=== PATIENT | male | born 1950 | race Caucasian/White ===

== ENCOUNTER 2017-07-23 10:48 | Emergency (ER) | payer OTHER, MEDICARE ==
[~2017-07-23] VITALS: Ht 188 cm; Wt 107.0 kg
[~2017-07-23 10:48] MED LIST: ACETAMINOPHEN325 M1 PO; ASPIRIN EC81 MG PO; CHLORTHALIDONE25 MG PO; DICLOFENAC SOD100 GM TOP; IBUPROFEN800 MG PO; LISINOPRIL2.5 MG PO; LOVASTATIN20 MG PO; MELOXICAM7.5 MG PO; NORCO 5-325 TA1 EACH PO; OSTERA TABLET1 EACH PO; PANTOPRAZOLE SO40 MG PO; PEPCID20 MG PO; PREDNISONE20 MG PO; SIMVASTATIN20 MG PO; TRAMADOL HCL50 MG PO; ZESTRIL40 MG PO
== END 2017-07-23 11:33 | disposition home or self-care (01) ==
LOC: ED 10:48
DX: S61.412A Laceration without foreign body of left hand, initial encounter (principal); W26.0XXA Contact with knife, initial encounter

== ENCOUNTER 2017-10-21 16:14 | Emergency (ER) | payer MEDICARE, OTHER ==
[~2017-10-21] VITALS: Ht 188 cm; Wt 113.4 kg
[2017-10-21] MEDS ORDERED: MOTION SICKNESS25 M1 PO (22:00)
[2017-10-21] MEDS ORDERED: ONDANSETRON ODT4 MG SL (22:00)
--- NOTE | 2017-10-22 13:22 | EKG ---
[facility] [address] [facility] [place], [place] [address] Signed Normal sinus rhythm Left axis deviation Abnormal ECG No previous ECGs available Confirmed by VIRGIL GARCIA MD ([id number]) on 10/22/2017 1:21:56 PM Electronically Signed By: VIRGIL GARCIA MD 10/22/17 1322 PATIENT NAME: SHAUNA SCHUMACHER Electrocardiogram DATE OF : 50 PHYSICIAN: VIRGIL GARCIA MD REPORT #: [id number] REPORT IS CONFIDENTIAL AND NOT TO BE RELEASED WITHOUT AUTHORIZATION
== END 2017-10-21 22:38 | disposition home or self-care (01) ==
LOC: ED 16:14
DX: R42 Dizziness and giddiness (principal); I65.23 Occlusion and stenosis of bilateral carotid arteries; R11.0 Nausea; Z87.891 Personal history of nicotine dependence; Z79.82 Long term (current) use of aspirin; Z79.899 Other long term (current) drug therapy
CPT/HCPCS: 70450; 71046; 80053; 84484; 85025; 93005; 93010; 99284

== ENCOUNTER 2020-01-04 06:49 | Emergency (ER) | payer MEDICARE, OTHER ==
[~2020-01-04] VITALS: Ht 188 cm; Wt 111.1 kg
--- OUTSIDE RECORDS SUMMARY | ~2020-01-04 | XMS | Encounter Summary ---
Demographics + + + | Address | [address] | | | [place] [address] | + + + | Home Phone | | + + + | Preferred Language | Unknown | + + + | Marital Status | Single | + + + | Hindu Affiliation | Unknown | + + + | Race | Unknown | + + + | Ethnic Group | Unknown | + + + Author + + + | Author | [facility] | | | and Jose Aana | + + + | Organization | [facility] | | | and Jose Aana | + + + | Address | Unknown | + + + | Phone | Unavailable | + + + Support + + +---------+ + | Name | Relationship | Address | Phone | + + +---------+ + | Per Patient None | ECON | Unknown | | + + +---------+ + Care Team Providers + +------+ + | Care Ammonia Nitrate Operator Name | Role | Phone | + +------+ + | Paul Mobley | PCP | | + +------+ + Reason for Referral Diagnostic/Screening (Routine) +--------+--------+ + + + + | Status | Reason | Specialty | Diagnoses / | Referred By | Referred To | | | | | Procedures | Contact | Contact | +--------+--------+ + + + + | Closed | | Radiology | Diagnoses | Ivone Soares, | | | | | | Carotid | DNP [address] | | | | | | stenosis, | G[facility] | | | | | | bilateral | [address] [address] | | | | | | Procedures | [place] | | | | | | VAS Carotid | [address] | | | | | | Duplex | Phone: | | | | | | Bilateral | [phone] | | | | | | | Fax: | | | | | | | [phone] | | +--------+--------+ + + + + Encounter Details +--------+ + + + + | Date | Type | Department | Care Team | Description | +--------+ + + + + | 04/09/ | Hospital | [facility] | | Carotid stenosis, | | 2019 | Encounter | VASCULAR SURGERY | | bilateral | | | | ULTRASOUND [address] | | | | | | [address] | | | | | | [place] | | | | | | [address] | | | | | | [phone] | | | +--------+ + + + + Social History + +-------+ +--------+------+ | Tobacco Use | Types | Packs/Day | Years | Date | | | | | Used | | + +-------+ +--------+------+ | Former Smoker | | | | | + +-------+ +--------+------+ + +---+---+---+ | Smokeless Tobacco: | | | | | Never Used | | | | + +---+---+---+ + + +---------+ + | Alcohol Use | Drinks/Week | oz/Week | Comments | + + +---------+ + | Yes | | | Alcoholic | | | | | Drinks/day: every 2 | | | | | weeks | + + +---------+ + + + + | Sex Assigned at | Date Recorded | | | | + + + | Not on file | | + + + + + + + | Job Start Date | Occupation | Industry | + + + + | Not on file | Not on file | Not on file | + + + + + + + + | Travel History | Travel Start | Travel End | + + + + + + | No recent travel history available. | + + documented as of this encounter Medications at Time of Discharge + + + +---------+ + + | Medication | Sig | Dispensed | Refills | Start | End Date | | | | | | Date | | + + + +---------+ + + | aspirin 81 mg EC | Take 81 mg by mouth | | 0 | | | | tablet | Daily. | | | | | + + + +---------+ + + | carvedilol (COREG) | Take 0.5 tablets by | 60 | 0 | 03/22/20 | | | 3.125 mg tablet | mouth 2 times daily | tablet | | 19 | | | | (with breakfast & | | | | | | | dinner). Hold for | | | | | | | Systolic blood | | | | | | | pressure less than | | | | | | | 160mmHG or heart | | | | | | | rate less than 70 | | | | | + + + +---------+ + + | chlorthalidone 25 | Take 0.5 tablets by | 30 | 11 | 03/22/20 | | | mg tablet | mouth Daily. | tablet | | 19 | | + + + +---------+ + + | cholecalciferol | Take 1,000 Units by | | 0 | | | | (VITAMIN D-3) 1,000 | mouth Daily. | | | | | | units tablet | | | | | | + + + +---------+ + + | clopidogrel | Take 1 tablet by | 90 | 3 | 03/23/20 | | | (PLAVIX) 75 mg | mouth Daily. | tablet | | 19 | | | tablet | | | | | | + + + +---------+ + + | clotrimazole | 1 applicator | | 0 | | | | (GYNE-LOTRIMIN) 1% | nightly. Patient | | | | | | vaginal cream | uses for his toes | | | | | | | and feet. | | | | | + + + +---------+ + + | diclofenac | Apply 4 g topically | | 0 | | | | (VOLTAREN) 1% GEL | 4 times daily. | | | | | + + + +---------+ + + | | Take 1 tablet by | 30 | 0 | 08/18/20 | | | HYDROcodone-acetamin | mouth every 6 hours | tablet | | 19 | | | ophen (NORCO) 5-325 | as needed for Pain | | | | | | mg per tablet | for up to 30 doses. | | | | | + + + +---------+ + + | lidocaine | Place 1 patch onto | | 0 | | | | (LIDODERM) 5% patch | the skin as needed. | | | | | | | Apply for 12 hours, | | | | | | | then remove for 12 | | | | | | | hours. | | | | | + + + +---------+ + + | lisinopril | Take 40 mg by mouth | | 0 | | | | (PRINIVIL,ZESTRIL) | Daily. | | | | | | 40 MG tablet | | | | | | + + + +---------+ + + | meloxicam (MOBIC) | Take 7.5 mg by mouth | | 0 | | | | 7.5 mg tablet | Daily. | | | | | + + + +---------+ + + | miconazole | Apply 1 Application | | 0 | | | | (MICATIN) 2% powder | topically 2 times | | | | | | | daily. | | | | | + + + +---------+ + + | ondansetron | As needed for | 2 | 0 | /12/20 | | | (ZOFRAN) 4 mg tablet | nausea; stop prep; | tablet | | 18 | | | | take 1 tablet; wait | | | | | | | 30 min then resume | | | | | | | prep; repeat 1x prn | | | | | + + + +---------+ + + | pantoprazole | Take 40 mg by mouth | | 0 | | | | (PROTONIX) 40 mg | every morning | | | | | | tablet | (before breakfast). | | | | | + + + +---------+ + + | simvastatin | Take 20 mg by mouth | | 0 | | | | (ZOCOR) 20 mg tablet | nightly. | | | | | + + + +---------+ + + | traMADol (ULTRAM) | Take 50 mg by mouth | | 0 | | | | 50 mg tablet | every 6 hours as | | | | | | | needed. | | | | | + + + +---------+ + + documented as of this encounter Plan of Treatment Not on filedocumented as of this encounter Procedures + +--------+ + + + | Procedure Name | Priori | Date/Time | Associated Diagnosis | Comments | | | ty | | | | + +--------+ + + + | VAS CAROTID DUPLEX | Routin | 04/09/2019 | Carotid stenosis, | Results for this | | BILATERAL | e | 2:56 PM | bilateral | procedure are in the | | | | PDT | | results section. | + +--------+ + + + documented in this encounter Results VAS Carotid Duplex Bilateral (04/09/2019 2:56 PM PDT) + + | Specimen | + + | | + + + + + | Narrative | Performed At | + + + | CAROTID DUPLEX ULTRASOUND CLINICAL INFORMATION: Carotid | [facility] | | endarterectomy and stent 03/20/2019 COMPARISON: None | | | PROCEDURE: Evaluation of the extracranial carotid and vertebral | | | arteries with production of real-time images integrating B-mode | | | two-dimensional vascular structure, Doppler spectral analysis and | | | color-flow Doppler imaging. FINDINGS: Peak systolic and | | | diastolic velocities measured in the common and internal carotid | | | arteries. All velocities recorded in cm/sec: Anterior Circulation: | | | Right CCA: 60/19 ICA: 62/15 ECA: 385/93 ICA/CCA: 1.0 Left | | | CCA: 81/21 ICA: 128 /46 ECA: 177/19 ICA/CCA: 1.6 Posterior | | | Circulation: Right: Vertebral: 35/7 Antegrade Left: | | | Vertebral: 35/11 Antegrade Calixto scale images: Intimal thickening | | | in right CCA. Eccentric noncalcified atherosclerotic plaques in | | | right carotid sinus and proximal ICA. Widely patent right carotid | | | endarterectomy and ICA stent.. Intimal thickening with eccentric | | | calcified and noncalcified atherosclerotic plaques in left CCA, | | | carotid sinus and ICA. IMPRESSION: *Grade 2 (less than 50%) ICA | | | stenosis bilaterally. *Widely patent right carotid endarterectomy and | | | ICA stent. *Probable hemodynamically significant stenosis in right | | | proximal ECA. *Antegrade flow in both vertebral arteries. | | | Internal Carotid Artery Diagnostic Grades Grade 1: Stenosis = | | | 01-50% / PSV <125 cm/sec / EDV (cm/s)<40 cm/sec (mild plaque) Grade | | | 2: Stenosis = 01-50% / PSV <125 cm/sec / EDV (cm/s)<40 cm/sec | | | (moderate plaque) Grade 3: Stenosis = 50-69% / PSV >125 cm/sec / EDV | | | (cm/s)>40 cm/sec Grade 4: Stenosis = 70-95% / PSV >230 cm/sec / EDV | | | (cm/s)>100 cm/sec Grade 5: Stenosis = 90-95% / PSV <125 cm/sec / EDV | | | (cm/s)<40 cm/sec Grade 6: Stenosis Occluded Society of | | | Radiologists in Ultrasound (SRU) criteria applied for internal | | | carotid stenosis determination. Signed by: Alvaro Licea, | | | Jasmynder Sign Date/Time: 04/09/2019 3:24 PM | | + + + + + | Procedure Note | + + | Pastor, Rad Results In - 04/09/2019 3:28 PM PDT | | CAROTID DUPLEX ULTRASOUND | | | | CLINICAL INFORMATION: | | Carotid endarterectomy and stent 03/20/2019 | | | | COMPARISON: | | None | | | | PROCEDURE: | | Evaluation of the extracranial carotid and vertebral arteries with | | production of real-time images integrating B-mode two-dimensional | | vascular structure, Doppler spectral analysis and color-flow Doppler | | imaging. | | | | FINDINGS: | | Peak systolic and diastolic velocities measured in the common and | | internal carotid arteries. All velocities recorded in cm/sec: | | | | Anterior Circulation: | | | | Right | | CCA: 60/19 | | ICA: 62/15 | | ECA: 385/93 | | ICA/CCA: 1.0 | | | | Left | | CCA: 81/21 | | ICA: 128 /46 | | ECA: 177/19 | | ICA/CCA: 1.6 | | | | Posterior Circulation: | | | | Right: | | Vertebral: 35/7 Antegrade | | | | Left: | | Vertebral: 35/11 Antegrade | | | | Calixto scale images: Intimal thickening in right CCA. Eccentric | | noncalcified atherosclerotic plaques in right carotid sinus and | | proximal ICA. Widely patent right carotid endarterectomy and ICA | | stent.. | | | | Intimal thickening with eccentric calcified and noncalcified | | atherosclerotic plaques in left CCA, carotid sinus and ICA. | | | | IMPRESSION: | | *Grade 2 (less than 50%) ICA stenosis bilaterally. | | *Widely patent right carotid endarterectomy and ICA stent. | | *Probable hemodynamically significant stenosis in right proximal ECA. | | *Antegrade flow in both vertebral arteries. | | | | | | Internal Carotid Artery Diagnostic Grades | | | | Grade 1: Stenosis = 01-50% / PSV <125 cm/sec / EDV (cm/s)<40 cm/sec | | (mild plaque) | | Grade 2: Stenosis = 01-50% / PSV <125 cm/sec / EDV (cm/s)<40 cm/sec | | (moderate plaque) | | Grade 3: Stenosis = 50-69% / PSV >125 cm/sec / EDV (cm/s)>40 cm/sec | | Grade 4: Stenosis = 70-95% / PSV >230 cm/sec / EDV (cm/s)>100 cm/sec | | Grade 5: Stenosis = 90-95% / PSV <125 cm/sec / EDV (cm/s)<40 cm/sec | | Grade 6: Stenosis Occluded | | | | Society of Radiologists in Ultrasound (SRU) criteria applied for | | internal carotid stenosis determination. | | | | | | | | Signed by: Alvaro Lieca, Amelie | | Sign Date/Time: 04/09/2019 3:24 PM | + + + +---------+ + + | Performing | Address | City/State/Zipcode | Phone Number | | Organization | | | | + +---------+ + + | [facility] | | | | + +---------+ + + documented in this encounter Visit Diagnoses + + | Diagnosis | + + | Carotid stenosis, bilateral Occlusion and stenosis of multiple and bilateral | | precerebral arteries without mention of cerebral infarction | + + documented in this encounter"
--- OUTSIDE RECORDS SUMMARY | ~2020-01-04 | XMS | Encounter Summary ---
Demographics + + + | Address | [address] | | | [place] [address] | + + + | Home Phone | | + + + | Preferred Language | Unknown | + + + | Marital Status | Single | + + + | Mosque Affiliation | Unknown | + + + | Race | Unknown | + + + | Ethnic Group | Unknown | + + + Author + + + | Author | [facility] | | | and [place] A[place] | + + + | Organization | [facility] | | | and [place] Aana [...] Team Providers + +------+ + | Care Roller Inspector Name | Role | Phone | + +------+ + | Paul Mobley | PCP | | + +------+ + Reason for Visit + + + | Reason | Comments | + + + | Colon Cancer | | | Screening | | + + + Evaluate & Treat (Routine) +--------+--------+ + + + + | Status | Reason | Specialty | Diagnoses / | Referred By | Referred To | | | | | Procedures | Contact | Contact | +--------+--------+ + + + + | Closed | | Gastroenterol | Diagnoses | [place], | [facility] | | | | ogy | Encounter | Paul Bone, | Gastroenterol | | | | | for | [address] | [address] | | | | | screening | [place] | [address] | | | | | for | [address] [place] | [address] [place] | | | | | malignant | [place], [place] | [place], [place] | | | | | neoplasm of | [address] | [phone] | | | | | colon | Phone: | Phone: | | | | | Procedures | [phone] | [phone] | | | | | colon | Fax: | Fax: | | | | | consult | [phone] | [phone] | +--------+--------+ + + + + Encounter Details +--------+---------+ + + + | Date | Type | Department | Care Team | Description | +--------+---------+ + + + | 05/15/ | Office | [facility] | Gavin Fields | Special screening | | 2018 | Visit | GASTROENTEROLOGY | MD Conr[address] | for malignant | | | | [address] | [address] [place] | neoplasms, colon | | | | [address] [place], [place] | [place] [address] | (Primary Dx); | | | | [address] | [phone] | Obstructive sleep | | | | [phone] | | apnea; Advanced age | +--------+---------+ + + + Social History + +-------+ +--------+------+ | Tobacco Use | Types | Packs/Day | Years | Date | | | | | Used | | + +-------+ +--------+------+ | Never Smoker | | | | | + +-------+ +--------+------+ + +---+---+---+ | Smokeless Tobacco: | | | | | Never Used | | | | + +---+---+---+ + + +---------+ + | Alcohol Use | Drinks/Week | oz/Week | Comments | + + +---------+ + | Yes | | | seldom | + + +---------+ + + + [...] + + documented as of this encounter Last Filed Vital Signs + + + + + | Vital Sign | Reading | Time Taken | Comments | + + + + + | Blood Pressure | 136/76 | 05/15/2018 2:04 PM | | | | | PDT | | + + + + + | Pulse | 87 | 05/15/2018 2:04 PM | | | | | PDT | | + + + + + | Temperature | 35.9 C (96.7 F) | 05/15/2018 2:04 PM | | | | | PDT | | + + + + + | Respiratory Rate | 12 | 05/15/2018 2:04 PM | | | | | PDT | | + + + + + | Oxygen Saturation | 95% | 05/15/2018 2:04 PM | | | | | PDT | | + + + + + | Inhaled Oxygen | - | - | | | Concentration | | | | + + + + + | Weight | 112.4 kg (247 lb | 05/15/2018 2:04 PM | | | | 12.8 oz) | PDT | | + + + + + | Height | 188 cm (6' 2") | 05/15/2018 2:04 PM | | | | | PDT | | + + + + + | Body Mass Index | 31.82 | 05/15/2018 2:04 PM | | | | | PDT | | + + + + + documented in this encounter Progress Notes Filomena Goodson RN - 05/15/2018 2:00 PM PDTScheduled pt for propofol colonoscopy (sc kay[facility]) on 06/04/[address] Fields following office visit; Medications, surg/med hx, a nd allergies were reviewed; gave instructions for bowel prep; rx to [facility] (pt preference [place] [facility]); info given to pt; completed case request order, notes to (JAXON - CPAP, page 10 [facility]). ANDOLarafael, Gavin Camp MD - 05/15/2018 2:00 PM PDTFormatting of this note might be differ ent from the original. Outpatient Gastroenterology Consult Note Date of Office Visit: 05/16/18 Referring Provider: JADEN Chisholm [facility] [place] [address] Providing Physician: Gavin Fields MD. Chief Complaint: "I need a colonoscopy" History of Present Illness Armando Dimas is a 68 y.o. male with a history of JAXON, HTN, HLD, who presents to discuss CRC screening. He denies any problems with his bowels. He denies any problems with GERD. He denies any FH of CRC. He reports that his last colonoscopy was 10 yrs ago and was normal. He reports that he has JAXON and wears a CPAP Endoscopic History Normal colonoscopy 10 yrs ago Review of Systems ROS A 12 point review of systems was conducted with the patient. Pertinent positives and negati ves listed per HPI Problem List Patient Active Problem List Diagnosis Arthralgia Arthropathy of shoulder region Cardiomegaly History of cholecystectomy Hyperlipidemia Benign essential hypertension Rotator cuff syndrome of right shoulder Past Medical History Past Medical History: Diagnosis Date Angle recession Arthritis of knee Benign hypertension Carpal tunnel syndrome Cataract Chronic pain bilateral knee pain Dilation of biliary tract Eczema Elbow pain Epigastric pain 04/18/2014 Epiretinal membrane Erectile disorder, generalized, mild FH: cholecystectomy Hepatitis C antibody test positive History of TIA (transient ischemic attack) Hyperlipidemia Hypertension Obesity Refractive amblyopia Sleep apnea Tinea cruris Vitamin D deficiency Past Surgical History Past Surgical History: Procedure Laterality Date CHOLECYSTECTOMY COLONOSCOPY normal UPPER GASTROINTESTINAL ENDOSCOPY 04/19/2014 Family History Family History Problem Relation Age of Onset Liver cancer Father Heart disease Sister Prostate cancer Brother Thyroid disease Sister Thyroid disease Sister Social History Social History Social History Marital status: Single Spouse name: N/A Number of children: N/A Years of education: N/A Social History Main Topics Smoking status: Never Smoker Smokeless tobacco: Never Used Alcohol use Yes Comment: seldom Drug use: No Sexual activity: No Other Topics Concern None Social History Narrative None Allergies Allergies Allergen Reactions Atenolol Not Noted Intolerance No active intolerances/contraindications Medications Current Outpatient Prescriptions on File Prior to Visit Medication Sig Dispense Refill aspirin 81 mg EC tablet Take 81 mg by mouth Daily. chlorthalidone 25 mg tablet Take 25 mg by mouth Daily. cholecalciferol (VITAMIN D-3) 1,000 units tablet Take 1,000 Units by mouth Daily. clotrimazole (GYNE-LOTRIMIN) 1% vaginal cream 1 applicator nightly. Patient uses for hi s toes and feet. diclofenac (VOLTAREN) 1% GEL Apply 4 g topically 4 times daily. lidocaine (LIDODERM) 5% patch Place 1 patch onto the skin Daily. Apply for 12 hours, th en remove for 12 hours. lisinopril (PRINIVIL,ZESTRIL) 40 MG tablet Take 40 mg by mouth Daily. meloxicam (MOBIC) 7.5 mg tablet Take 7.5 mg by mouth Daily. miconazole (MICATIN) 2% powder Apply 1 Application topically 2 times daily. pantoprazole (PROTONIX) 40 mg tablet Take 40 mg by mouth every morning (before breakfas t). simvastatin (ZOCOR) 20 mg tablet Take 20 mg by mouth nightly. traMADol (ULTRAM) 50 mg tablet Take 50 mg by mouth every 6 hours as needed. No current facility-administered medications on file prior to visit. Physical Exam Vitals:BP 136/76 | Pulse 87 | Temp 35.9 C (96.7 F) (Temporal) | Resp 12 | Ht 1.88 m (6' 2") | Wt 112.4 kg (247 lb 12.8 oz) | SpO2 95% | BMI 31.82 kg/m General: This is a well-developed,well-nurished male in no apparent distress, alert and lanie ented x 3. Head: Reveals normocephalic, atraumatic Eyes: Sclera anicteric, normal conjunctiva Mouth: Oropharynx is clear without obstruction. No oral lesion. Lungs: Clear to auscultation without rales or wheezes. Cardiac: Reveals regular rate and rhythm with normal S1 and S2 and no murmurs, rubs or gall ops. Abdomen: Soft and nontender without masses or organmegaly. No guarding or rebound pain. No rmoactive bowel sounds. Extremities: Without cyanosis, clubbing or edema. Neuro: Awake, alert, oriented x3. Skin: Warm and dry, no erythematous rash. Labs Lab Results Component Value Date WBC <1 02/06/2018 No results found for: HGB Chemistry No results found for: NA, K, CL, CO2, GLU, BUN, CREATININE, ANIONGAP, OSMOLALITY No results found for: CALCIUM, ALKPHOS, AST, ALT, TOTALPROTEIN, ALBUMIN, GFRAA, BILITOT Imaging No relevant imaging Assessment and Plan This is a 68 year old man, who is due for CRC screening. He is avg risk for CRC. He has no problems with his bowel habits. He has JAXON, on CPAP. At this time I recommend that colonoscopy be performed for further evaluation. Indications risks benefits and possible complications were discussed with the patient who wishes to pro ceed with colonoscopy at this time. He is a candidate for MAC sedation given his history of JAXON on CPAP. ICD-10-CM ICD-9-CM 1. Special screening for malignant neoplasms, colon Z12.11 V76.51 Case request: Colonoscopy ; N/A 2. Obstructive sleep apnea G47.33 327.23 Case request: Colonoscopy; N/A 3. Advanced age [id number] Case request: Colonoscopy; N/A Follow up: No Follow-up on file. CC: Paul Mobley, [address] [place] [address] [address] [place] [address] Portions of this chart may have been created with [employer] voice recognition software. Occasi onal wrong-word or sound-alike substitutions may have occurred due to the inherent lopez itations of voice recognition software. Please read the chart carefully and recognize, using context, where these substitutions have occurred documented in thi s encounter Plan of Treatment Not on filedocumented as of this encounter Visit Diagnoses + + | Diagnosis | + + | Special screening for malignant neoplasms, colon - Primary | + + | Obstructive sleep apnea Obstructive sleep apnea (adult) (pediatric) | + + | Advanced age Reserved for inherently not codable concepts WITHOUT codable children | + + documented in this encounter
--- OUTSIDE RECORDS SUMMARY | ~2020-01-04 | XMS | Encounter Summary ---
Demographics + + + | Address | [address] | | | [place] [address] | + + + | Home Phone | | + + + | Preferred Language | Unknown | + + + | Marital Status | Single | + + + | Yazidism Affiliation | Unknown | + + + | Race | Unknown | + + + | Ethnic Group | Unknown | + + + Author + + + | Author | [facility] | | | and [place] | + + + | Organization | [facility] | | | and [place] [...] Team Providers + +------+ + | Care Auto Inspection Specialist Name | Role | Phone | + +------+ + | Paul Mobley | PCP | | + +------+ + Encounter Details +--------+ + + + + | Date | Type | Department | Care Team | Description | +--------+ + + + + | 05/15/ | Abstract | [facility] | Gavin Fields | | | 2017 | | GASTROENTEROLOGY | MD [address] | | | | | [address] | [address] | | | | | [address] | [place] [address] | | | | | [address] | [phone] | | | | | [phone] | | | +--------+ + + + [...] filedocumented as of this encounter Visit Diagnoses Not on filedocumented in this encounter"
--- OUTSIDE RECORDS SUMMARY | ~2020-01-04 | XMS | Encounter Summary ---
Demographics + + + | Address | [address] | | | [place] [address] | + + + | Home Phone | | + + + | Preferred Language | Unknown | + + + | Marital Status | Single | + + + | Alevism Affiliation | Unknown | + + + | Race | Unknown | + + + | Ethnic Group | Unknown | + + + Author + + + | Author | [facility] | | | and Jose Aana | + + + | Organization | [facility] | | | and Jose [...] Team Providers + +------+ + | Care Road Equipment Operator Name | Role | Phone | + +------+ + | Paul Mobley | PCP | | + +------+ + Reason for Visit Auth/Cert +--------+--------+ + + + + | Status | Reason | Specialty | Diagnoses / | Referred By | Referred To | | | | | Procedures | Contact | Contact | +--------+--------+ + + + + | | | | Diagnoses | | | | | | | Special | | | | | | | screening | | | | | | | for | | | | | | | malignant | | | | | | | neoplasms, | | | | | | | colon | | | | | | | (Z12.11), | | | | | | | Obstructive | | | | | | | sleep apnea | | | | | | | (G47.33), | | | | | | | Advanced age | | | | | | | (R54) | | | | | | | Procedures | | | | | | | DC | | | | | | | COLONOSCOPY | | | | | | | FLX DX | | | | | | | W/COLLJ SPEC | | | | | | | WHEN PFRMD | | | | | | | DC | | | | | | | COLONOSCOPY | | | | | | | W/BIOPSY | | | | | | | SINGLE/MULTI | | | | | | | PLE DC | | | | | | | COLSC FLX | | | | | | | W/RMVL OF | | | | | | | TUMOR POLYP | | | | | | | LESION SNARE | | | | | | | TQ DC | | | | | | | ANESTHESIA | | | | | | | LOWER INTST | | | | | | | ENDOSCOPIC | | | | | | | PX SCR COLSC | | | | | | | | | | | | | | COLONOSCOPY | | | +--------+--------+ + + + + Encounter Details +--------+ + + + + | Date | Type | Department | Care Team | Description | +--------+ + + + + | 06/04/ | Anesthesia | [facility] | Bill Harris MD | | | 2018 | Event | [facility] | [address] | | | | | [address] | [place], [place] | | | | | [place], [place] | [address] | | | | | [address] | | | | | | [phone] | Ehsan Clarke | | | | | | MD Fer [address] | | | | | | [place], [place] | | | | | | [address] | | | | | | [phone] | | | | | | | | +--------+ + + + + Anesthesia Record + + + + + | Procedure Name | Responsible | Anesthesia Start | Anesthesia Stop Time | | | Anesthesiologist | Time | | + + + + + | COLONOSCOPY (N/A | Bill Harris MD | 06/[birth year]/1847 | 10/31/18 0914 | | Rectum) | | | | + + + + + +----+---+ + + | Da | T | Event | Comment | | te | i | | | | | m | | | | | e | | | +----+---+ + + | 10 | 0 | | | | /3 | 8 | | | | 1/ | 4 | | | | 20 | 3 | | | | 18 | | | | +----+---+ + + | | 0 | An Checkout | Pre-use anesthesia machine/equipment checkout. | | | 8 | | | | | 4 | | | | | 7 | | | +----+---+ + + | | 0 | An Start | | | | 8 | Data | | | | 4 | | | | | 7 | | | +----+---+ + + | | 0 | An Start | Reassessment prior to anesthesia induction/procedure. | | | 8 | | | | | 4 | | | | | 7 | | | +----+---+ + + | | 0 | AN | Per surgeon request | | | 8 | Antibiotic | | | | 4 | declined | | | | 7 | | | +----+---+ + + | | 0 | Breathing | | | | 8 | Spontaneous | | | | 4 | ly | | | | 7 | | | +----+---+ + + | | 0 | First | | | | 8 | Inc/Proc St | | | | 5 | | | | | 1 | | | +----+---+ + + | | 0 | an stop | | | | 9 | data | | | | 0 | | | | | 9 | | | +----+---+ + + | | 0 | An Stop | Patient handed off to recovery nurse. | | | 1 | | | | | 4 | | | +----+---+ + + +------+ | Meds | +------+ + + + | Name | Total | + + + | propofol (DIPRIVAN) injection | 100 mg | | (bolus) (20 mL) | | + + + | propofol | 123.12 mg | + + + | lactated ringers (LR) infusion | 300 mL | + + + + + | No agents on file. | + + + + | No blood administrations on file. | + + +--------+ + + + | Type | Details | Placement | Removal | +--------+ + + + | Periph | 06/04/18; 08; Right; Forearm; | 06/04/18 08 by | 06/04/18944 by | | mónica | [id number] catheter system; | Celine Stokes, | Rita Ulloa, | | IV | 20 gauge; 1; right forearm; | RN | RN | | | distraction; no longer indicated, | | | | | removed per policy/procedure, | | | | | catheter/device intact; 06/04/18; | | | | | 0945 | | | +--------+ + + + documented in this encounter Social History + +-------+ +--------+------+ | Tobacco [...] Visit Diagnoses Not on filedocumented in this encounter Administered Medications + +---------+ +------+------+------+ | Medication Order | MAR | Action | Dose | Rate | Site | | | Action | Date | | | | + +---------+ +------+------+------+ | lactated ringers (LR) infusion | New Bag | 06/04/20 | | | | | at 100 mL/hr, Intravenous, | | 18 8:46 | | | | | CONTINUOUS, Starting 06/04/18 | | AM PDT | | | | | at 0800, Pre-op | | | | | | + +---------+ +------+------+------+ +---------+ +--------+-------+---+ | New Bag | 06/04/20 | 1,000 | 100 | | | | 18 8:02 | mLs | mL/hr | | | | AM PDT | | | | +---------+ +--------+-------+---+ +---+---+ | | | +---+---+ + + + + +-------+---+ | propofol (DIPRIVAN) injection | Rate/Dos | 06/04/20 | 40 | 25.9 | | | Intravenous, CONTINUOUS PRN, | e Change | 18 8:56 | mcg/kg/m | mL/hr | | | Starting 06/04/18 at 0851, | | AM PDT | in | | | | Anesthesia Intra-op | | | | | | + + + + +-------+---+ +---------+ + +-------+---+ | New Bag | 06/04/20 | 140 | 90.7 | | | | 18 8:51 | mcg/kg/m | mL/hr | | | | AM PDT | in | | | +---------+ + +-------+---+ +---+---+ | | | +---+---+ + +-------+ +--------+---+---+ | propofol (DIPRIVAN) injection | Given | 06/04/20 | 100 mg | | | | Intravenous, PRN, Starting Wed | | 18 8:51 | | | | | 06/04/18 at 0851, Anesthesia | | AM PDT | | | | | Intra-op | | | | | | + +-------+ +--------+---+---+ +---+---+ | | | +---+---+ documented in this encounter"
--- OUTSIDE RECORDS SUMMARY | ~2020-01-04 | XMS | Encounter Summary ---
Demographics + + + | Address | [address] | | | [place] [address] | + + + | Home Phone | | + + + | Preferred Language | Unknown | + + + | Marital Status | Single | + + + | Adventism Affiliation | Unknown | + + + | Race | Unknown | + + + | Ethnic Group | Unknown | + + + Author + + + | Author | [facility] | | | and Jose Aana | + + + | Organization | [facility] | | | and Jose [...] Team Providers + +------+ + | Care Medical Insurance Coding Specialist Name | Role | Phone | [...] | | | | | for | ENVIRONMENTAL SERVICES FLOOR TECH [address] | [address] | | | | | screening | [address] | | | | | for | [address] [place] | [address] [place] | | | | | malignant | [place], [place] | [place], [place] | | | | | neoplasm of | [address] | [address] | | | | | colon | Phone: | Phone: | | | | | Procedures | [phone] | [phone] | | | | | colon | Fax: | Fax: | | | | | consult | [phone] | [phone] | +--------+--------+ + + + + Encounter [...] neoplasms, colon | | | | [address], [place] | [place] [address] | (Primary Dx); | | | | [address] | [phone] | Obstructive sleep | | | | [phone] | | apnea; Advanced age | +--------+---------+ [...] rx to [facility] (pt preference [place] [facility]); info given to pt; completed case request order, notes to ([facility] - CPAP, page 10 [facility] referral). ANDOLarafael, Gavin Camp MD - 05/15/2018 2:00 PM PDTFormatting of this note might be differ ent from the original. Outpatient Gastroenterology Consult Note Date of Office Visit: 05/16/18 Referring Provider: [facility] [address] Providing Physician: Gavin Fields MD. Chief Complaint: [...] No Follow-up on file. CC: Paul Mobley, ENVIRONMENTAL SERVICES FLOOR TECH [address] [address] JADEN [address] [address] Portions of this chart may have been created with [employer] voice recognition software. Occasi onal wrong-word or [...]
--- OUTSIDE RECORDS SUMMARY | ~2020-01-04 | XMS | Encounter Summary ---
Demographics + + + | Address | [address] | | | [place] [address] | + + + | Home Phone | | + + + | Preferred Language | Unknown | + + + | Marital Status | Single | + + + | Mu-Ism Affiliation | Unknown | + + + | Race | Unknown | + + + | Ethnic Group | Unknown | + + + Author + + + | Author | [facility] | | | and Jose Aana | + + + | Organization | [facility] | | | and Jose Aana [...] Team Providers + +------+ + | Care Glue Bone Drier Name | Role | Phone | + +------+ + | Paul Mobley | PCP | | + +------+ + Encounter Details +--------+ + + + + | Date | Type | Department | Care Team | Description | +--------+ + + + + | 03/05/ | Hospital | [facility] | Conversion | | | 2019 | Encounter | [facility] | Transaction, | | | | | CLINIC [address] | Provider Unknown | | | | | [place], [place] | [phone] | | | | | [address] | | | | | | [phone] | Costa Velasco MD [address] | | | | | | [address] | | | | | | [facility] [place] | | | | | | [address] | | | | | | [phone] | | | | | | | [...] needed for | 2 | 0 | 10/12/20 | | | (ZOFRAN) 4 mg tablet [...] + + | chlorthalidone 25 | Take 25 mg by mouth | | 0 | | | | mg tablet | Daily. | | | | 9 | + + + +---------+ + + documented as of this encounter Plan of Treatment Not on filedocumented as of this encounter Procedures + +--------+ + + + | Procedure Name | Priori | Date/Time | Associated Diagnosis | Comments | | | ty | | | | + +--------+ + + + | TYPE AND SCREEN | Routin | 03/05/2019 | | Results for this | | | e | 12:08 PM | | procedure are in the | | | | PDT | | results section. | + +--------+ + + + | EXTERNAL LAB: CBC | Routin | 03/05/2019 | | Results for this | | | e | 12:07 PM | | procedure are in the | | | | PDT | | results section. | + +--------+ + + + | COMPREHENSIVE | Routin | 03/05/2019 | | Results for this | | METABOLIC PANEL | e | 12:07 PM | | procedure are in the | | | | PDT | | results section. | + +--------+ + + + | ECG 12 LEAD | Routin | 03/05/2019 | | Results for this | | | e | 11:43 AM | | procedure are in the | | | | PDT | | results section. | + +--------+ + + + documented in this encounter Results Type and Screen (03/05/2019 12:08 PM PDT) + + + + + + | Component | Value | Ref Range | Performed | Pathologist | | | | | At | Signature | + + + + + + | ABO Rh | O POSITIVE | | EXTERNAL | | | | | | LAB | | + + + + + + | Antibody | NEGATIVETesting | | EXTERNAL | | | Screen | performed at [facility];[address] | | LAB | | | | [address];[place], [place] | | | | | | [address] | | | | + + + + + + + + | Specimen | + + | Blood specimen | | (specimen) | + + + +---------+ + + | Performing | Address | City/State/Zipcode | Phone Number | | Organization | | | | + +---------+ + + | EXTERNAL LAB | | | | + +---------+ + + External Lab: CBC (03/05/2019 12:07 PM PDT) + + + + + + | Component | Value | Ref Range | Performed | Pathologist | | | | | At | Signature | + + + + + + | WBC | 8.78 | 3.80 - 11.00 | EXTERNAL | | | | | K/uL | LAB | | + + + + + + | Red Blood | 4.27 | 4.20 - 5.70 | EXTERNAL | | | Cells | | M/uL | LAB | | | Counted | | | | | + + + + + + | Hemoglobin | 14.0 | 13.2 - 17.0 | EXTERNAL | | | | | g/dL | LAB | | + + + + + + | Hematocrit, | 41.0 | 39.0 - 50.0 % | EXTERNAL | | | POC | | | LAB | | + + + + + + | MCV | 95.9 | 80.0 - 100.0 fl | EXTERNAL | | | | | | LAB | | + + + + + + | MCH | 32.8 | 27.0 - 34.0 pg | EXTERNAL | | | | | | LAB | | + + + + + + | MCHC | 34.2 | 32.0 - 35.5 | EXTERNAL | | | | | g/dL | LAB | | + + + + + + | RDW-CV | 46.4 | 37 - 53 fl | EXTERNAL | | | | | | LAB | | + + + + + + | Platelet | 245 | 150 - 400 K/uL | EXTERNAL | | | Count | | | LAB | | | Plasma | | | | | + + + + + + | MPV | 8.7 | fl | EXTERNAL | | | | | | LAB | | + + + + + + | Differentia | AUTOMATED | | EXTERNAL | | | l Type | | | LAB | | + + + + + + | % Segmented | 44.21 | % | EXTERNAL | | | | | | LAB | | | Neutrophils | | | | | + + + + + + | % | 44.06 | % | EXTERNAL | | | Lymphocytes | | | LAB | | + + + + + + | % Monocytes | 9.04 | % | EXTERNAL | | | | | | LAB | | + + + + + + | % | 2.00 | % | EXTERNAL | | | Eosinophils | | | LAB | | + + + + + + | % Basophils | 0.69 | % | EXTERNAL | | | | | | LAB | | + + + + + + | Absolute | 3.88 | 1.90 - 7.40 | EXTERNAL | | | Segmented | | K/uL | LAB | | | Neutrophils | | | | | + + + + + + | Absolute | 3.87 | 1.00 - 3.90 | EXTERNAL | | | Lymphocytes | | K/uL | LAB | | + + + + + + | Absolute | 0.79 | 0.00 - 0.80 | EXTERNAL | | | Monocytes | | K/uL | LAB | | + + + + + + | Absolute | 0.18 | 0.00 - 0.50 | EXTERNAL | | | Eosinophils | | K/uL | LAB | | + + + + + + | Absolute | 0.06Comment: Testing | 0.00 - 0.10 | EXTERNAL | | | Basophils | performed at [facility], [address] | [address] | LAB | | | | [address], | | | | | | [place] [address] | | | | + + + + + + + + | Specimen | + + | Blood specimen | | (specimen) | + + + +---------+ + + | Performing | Address | City/State/Zipcode | Phone Number | | Organization | | | | + +---------+ + + | EXTERNAL LAB | | | | + +---------+ + + Comprehensive Metabolic Panel (03/05/2019 12:07 PM PDT) + + + + + + | Component | Value | Ref Range | Performed | Pathologist | | | | | At | Signature | + + + + + + | Na | 139 | 135 - 145 | EXTERNAL | | | | | mmol/L | LAB | | + + + + + + | K | 3.9 | 3.5 - 4.9 | EXTERNAL | | | | | mmol/L | LAB | | + + + + + + | Cl | 107 | 99 - 109 mmol/L | EXTERNAL | | | | | | LAB | | + + + + + + | CO2 | 25 | 23 - 32 mmol/L | EXTERNAL | | | | | | LAB | | + + + + + + | Anion Gap | 11 | 5 - 20 mmol/L | EXTERNAL | | | | | | LAB | | + + + + + + | Glucose, | 85 | 65 - 99 mg/dL | EXTERNAL | | | Fasting | | | LAB | | + + + + + + | BUN | 18 | 8 - 25 mg/dL | EXTERNAL | | | | | | LAB | | + + + + + + | Creatinine | 0.9 | 0.70 - 1.30 | EXTERNAL | | | | | mg/dL | LAB | | + + + + + + | BUN/Creatin | 20 | | EXTERNAL | | | ine Ratio | | | LAB | | + + + + + + | Calcium | 8.6 | 8.5 - 10.5 | EXTERNAL | | | | | mg/dL | LAB | | + + + + + + | Protein, | 6.9 | 6.3 - 8.2 g/dL | EXTERNAL | | | Total | | | LAB | | + + + + + + | Albumin | 3.6 | 3.3 - 4.8 g/dL | EXTERNAL | | | | | | LAB | | + + + + + + | Globulin | 3.3 | 1.3 - 4.9 g/dL | EXTERNAL | | | | | | LAB | | + + + + + + | A/G Ratio | 1.1 | 1.0 - 2.4 | EXTERNAL | | | | | | LAB | | + + + + + + | Bilirubin | 0.4 | 0.1 - 1.5 mg/dL | EXTERNAL | | | Total | | | LAB | | + + + + + + | ALP, | 80 | 35 - 115 U/L | EXTERNAL | | | External | | | LAB | | + + + + + + | AST | 19 | 10 - 45 U/L | EXTERNAL | | | | | | LAB | | + + + + + + | ALT | 24 | 10 - 65 U/L | EXTERNAL | | | | | | LAB | | + + + + + + | Estimated | >60Comment: GFR <60: | mL/min/1.73m2 | EXTERNAL | | | GFR | CHRONIC KIDNEY DISEASE, | | LAB | | | | IF FOUND OVER A 3 MONTH | | | | | | PERIOD.GFR <15: KIDNEY | | | | | | FAILURE.FOR | | | | | | AMERICANS, MULTIPLY THE | | | | | | CALCULATED GFR BY | | | | | | 1.210.This eGFR is | | | | | | calculated using the | | | | | | MDRD IDMS traceable | | | | | | equation.Testing | | | | | | performed at [facility], [address] | | | | | | [facility], | | | | | | [place] [address] | | | | + + + + + + + + | Specimen | + + | Blood specimen | | (specimen) | + + + +---------+ + + | Performing | Address | City/State/Zipcode | Phone Number | | Organization | | | | + +---------+ + + | EXTERNAL LAB | | | | + +---------+ + + ECG 12 lead (03/05/2019 11:43 AM PDT) + + + + + + | Component | Value | Ref Range | Performed | Pathologist | | | | | At | Signature | + + + + + + | DIAGNOSIS: | Sinus | | EXTERNAL | | | | bradycardiaOtherwise | | LAB | | | | normal ECGNo previous | | | | | | ECGs availableConfirmed | | | | | | by MELVI MACIAS ([id number]) | | | | | | on 03/05/2019 1:32:54 PM | | | | + + + + + + + + | Specimen | + + | | + + + + + | Narrative | Performed At | + + + | Historically converted procedure from [facility] | EXTERNAL LAB | + + + + +---------+ + + | Performing | Address | City/State/Zipcode | Phone Number | | Organization | | | | + +---------+ + + | EXTERNAL LAB | | | | + +---------+ + + documented in this encounter Visit Diagnoses Not on filedocumented in this encounter"
--- OUTSIDE RECORDS SUMMARY | ~2020-01-04 | XMS | Clinical Summary ---
Demographics + + + | Address | [address] | | | [place] [address] | + + + | Home Phone | | + + + | Preferred Language | Unknown | + + + | Marital Status | Single | + + + | Lutheran Affiliation | Unknown | + + + | Race | Unknown | + + + | Ethnic Group | Unknown | + + + Author + + + | Author | [facility] ([facility] | | | 03-21-19) | + + + | Organization | [facility] (Historical as of | | | 03-21-19) | + + + | Address | Unknown | + + + | Phone | Unavailable | + + + Support +---------+ +---------+ + | Name | Relationship | Address | Phone | +---------+ +---------+ + | No,Name | ECON | Unknown | | +---------+ +---------+ + Care Team Providers + +------+ + | Care Wind Operations Supervisor Name | Role | Phone | + +------+ + | [facility] PP | | | [place] | | | + +------+ + Allergies + + + + + + | Active Allergy | Reactions | Severity | Noted | Comments | | | | | Date | | + + + + + + | Atenolol | Visual Disturbance | Medium | 03/05/20 | | | | | | 19 | | + + + + + + Current Medications + + +-------+---------+------+------+-------+ | Prescription | Sig. | Disp. | Refills | Star | End | Statu | | | | | | t | Date | s | | | | | | Date | | | + + +-------+---------+------+------+-------+ | aspirin EC 81 MG | Take 81 mg by mouth. | | | | | Activ | | EC tablet | | | | | | e | + + +-------+---------+------+------+-------+ | calcium-vitamin D | 600-400 MG-UNIT | | | 08/0 | | Activ | | (CALCITRATE) 600-400 | TABS, 1 by mouth | | | 4/20 | | e | | MG-UNIT per tablet | twice a day | | | 10 | | | + + +-------+---------+------+------+-------+ | chlorthalidone | Take 25 mg by mouth. | | | | | Activ | | (HYGROTEN) 25 MG | | | | | | e | | tablet | | | | | | | + + +-------+---------+------+------+-------+ | lidocaine | Place 1 patch onto | | | | | Activ | | (LIDODERM) 5 % | the skin. | | | | | e | + + +-------+---------+------+------+-------+ | meloxicam (MOBIC) | Take 7.5 mg by | | | | | Activ | | 7.5 MG tablet | mouth. | | | | | e | + + +-------+---------+------+------+-------+ | simvastatin | Take 20 mg by mouth. | | | | | Activ | | (ZOCOR) 20 MG tablet | | | | | | e | + + +-------+---------+------+------+-------+ | traMADol (ULTRAM) | | | | 07/2 | | Activ | | 50 MG tablet | | | | 5/20 | | e | | | | | | 19 | | | + + +-------+---------+------+------+-------+ | pantoprazole | Take 40 mg by mouth. | | | | | Activ | | (PROTONIX) 40 MG | | | | | | e | | tablet | | | | | | | + + +-------+---------+------+------+-------+ | lisinopril | Take 40 mg by mouth | | | | | Activ | | (ZESTRIL) 40 MG | daily. | | | | | e | | tablet | | | | | | | + + +-------+---------+------+------+-------+ Active Problems Not on file Family History + + +------+ + | Medical History | Relation | Name | Comments | + + +------+ + | Malig hypertherm | Neg Hx | | | + + +------+ + Social History + +-------+ +--------+------+ | [...] + +---------+ + | Alcohol Use | Drinks/We | oz/Week | Comments | | | ek | | | + + +---------+ + | Yes | 2 Cans | 1.2 | every 2 weeks | | | of beer | | | + + +---------+ + + + + | Sex Assigned at | Date Recorded | | | | + + + | Not on file | | + + + Last Filed Vital Signs + + + + | Vital Sign | Reading | Time Taken | + + + + | Blood Pressure | 115/58 | 03/20/2019 11:35 PM PDT | + + + + | Pulse | 94 | 03/20/2019 11:35 PM PDT | + + + + | Temperature | 36.9 C (98.4 F) | 03/20/2019 11:35 PM PDT | + + + + | Respiratory Rate | 22 | 03/20/2019 11:35 PM PDT | + + + + | Oxygen Saturation | 99% | 03/20/2019 11:35 PM PDT | + + + + | Inhaled Oxygen | - | - | | Concentration | | | + + + + | Weight | 109.4 kg (241 lb 2.9 | 03/20/2019 10:03 AM PDT | | | oz) | | + + + + | Height | 188 cm (6' 2") | 03/20/2019 10:03 AM PDT | + + + + | Body Mass Index | 30.97 | 03/20/2019 10:03 AM PDT | + + + + Plan of Treatment + + + + + | Health Maintenance | Due Date | Last Done | Comments | + + + + + | Colon Cancer | | | | | Screening | 0 | | | | (Colonoscopy) | | | | + + + + + | Vaccine: Zoster (1 | | | | | of 2) | 0 | | | + + + + + | Vaccine: | | | | | Pneumococcal 65+ | 5 | | | | Low/Medium Risk (1 | | | | | of 2 - PCV13) | | | | + + + + + | Vaccine: | | 02/13/2007 | | | Dtap/Tdap/Td (2 - | 7 | | | | Td) | | | | + + + + + | Statin Therapy | | | | | (optimal intensity) | 9 | | | + + + + + | Vaccine: Influenza | | | | | (Season Ended) | 0 | | | + + + + + Results Not on filefrom Last 3 Months Insurance + +--------+ +------+ + + | Payer | Benefi | Subscriber | Type | Phone | Address | | | t Plan | ID | | | | | | / | | | | | | | Group | | | | | + +--------+ +------+ + + | [place] | [id number] | [phone] [id number] | | ADMINISTRATION | CHOICE | | | [phone] | | | | | | [address] [place], [place] | | | | | | | [phone] | + +--------+ +------+ + + | [employer] | [place] | [id number] | | [phone] | [id number] | | ADMINISTRATION | [place] | | | [phone] | | [address] | | | | [address] [place], [place] | | | [place] | | | | [phone] | | | ON | | | | | + +--------+ +------+ + + + +--------+ +--------+ + + | Guarantor Name | Accoun | Relation to | Date | Phone | Billing Address | | | t Type | Patient | of | | | | | | | | | | + +--------+ +--------+ + + | ARMANDO DIMAS | Nathalya | Self [birth year] | Home: | [address] | | [place] | ns | | [phone] | [phone] | [place] [address] | | | Admini | | | [phone] | | | | strati | | | | | | | on | | | | | + +--------+ +--------+ + + | ARMANDO DIMAS | Person | Self | [birth year] | Home: | [address] | | | al/Fam | | 1950 | [phone] | [place] [address] | | | hong | | | [phone] | | + +--------+ +--------+ + +
--- OUTSIDE RECORDS SUMMARY | ~2020-01-04 | XMS | Encounter Summary ---
Demographics + + + | Address | [address] | | | [place] [address] | + + + | Home Phone | | + + + | Preferred Language | Unknown | + + + | Marital Status | Single | + + + | Religion Affiliation | Unknown | + + + | Race | Unknown | + + + | Ethnic Group | Unknown | + + + Author + + + | Author | [facility] | | | and Jose Aana | + + + | Organization | [facility] | | | and Jose [...] Team Providers + +------+ + | Care Card Seller Name | Role | Phone | + [...] | | | | | | | ENDARTERECTO | | | | | | | MY - CAROTID | | | | | | | | | | | | | | Symptomatic | | | | | | | right | | | | | | | carotid | | | | | | | stenosis | | | +--------+--------+ + + + + Encounter Details +--------+ + + + + | Date | Type | Department | Care Team | Description | +--------+ + + + + | 03/20/ | Hospital | [facility] | Costa Velasco MD | | | 2019 - | Encounter | [facility] | [address] | | | | | [address] | [place], [place] | | | 03/22/ | | [place], [place] | [address] | | | 2019 | | [address] | [phone] | | | | | [phone] | | | +--------+ + + + [...] + + + | Blood Pressure | 114/57 | 03/22/2019 8:21 AM | | | | | PDT | | + + + + + | Pulse | 73 | 03/22/2019 8:21 AM | | | | | PDT | | + + + + + | Temperature | 36.4 C (97.5 F) | 03/22/2019 7:49 AM | | | | | PDT | | + + + + + | Respiratory Rate | 20 | 03/22/2019 7:49 AM | | | | | PDT | | + + + + + | Oxygen Saturation | 99% | 03/22/2019 7:49 AM | | | | | PDT | | + + + + + | Inhaled Oxygen | - | - | | | Concentration | | | | + + + + + | Weight | 108.5 kg (239 lb 3.2 | 03/22/2019 5:49 AM | | | | oz) | PDT | | + + + + + | Height | 188 cm (6' 2.02") | 03/20/2019 9:27 PM | | | | | PDT | | + + + + + | Body Mass Index | 30.7 | 03/20/2019 9:27 PM | | | | | PDT | | + + + + + documented in this encounter Discharge Summaries Colette Martin DO - 03/22/2019 9:39 AM PDT Physician Discharge Summary Patient ID: Armando Dimas [id number] y.o. 1950 Admit date: 03/20/2019 Discharge date and time: No discharge date for patient encounter. Admitting Physician: oCsta Velasco MD Discharge Physician: Colette Martin Admission Diagnoses: ENDARTERECTOMY - CAROTID Symptomatic right carotid stenosis Discharge Diagnoses: Right Carotid asymptomatic stenosis, severe Admission Condition: stable Discharged Condition: stable Indication for Admission: right carotid stenosis, Asx Hospital Course: Doing well postoperatively, had elevated blood pressure and headache after night of procedure, treated with IV drip, titrated to off. BP much better overnight with ad dition of PRN coreg despite double the dose of home chlorthalindone. Doing much better, stab le for discharge home at this time. Consults: none Significant Diagnostic Studies: Treatments: right carotid endarterectomy, right carotid stent placement Discharge Exam: Sitting in chair Tongue midline, smile symmetrical, speech normal, right neck without hematoma, steri-strips in place, no ecchymosis Bilateral Upper and lower extremities strength 5/5. Disposition: home Patient Instructions: Discharge Medications New Medications Details carvedilol 3.125 mg tablet Take 0.5 tablets by mouth 2 times daily (with breakfast & dinner). Hold for Systolic blood pressure less than 160mmHG or heart rate less than 70 aka: COREG clopidogrel 75 mg tablet Take 1 tablet by mouth Daily. aka: PLAVIX Start: 03/23/2019 HYDROcodone-acetaminophen 5-325 mg per tablet Take 1 tablet by mouth every 6 hours as needed for Pain for up to 30 doses. aka: SHORTY Changed Medications Details chlorthalidone 25 mg tablet Take 0.5 tablets by mouth Daily. What changed: how much to take Unchanged Medications Details aspirin 81 mg EC tablet Take 81 mg by mouth Daily. cholecalciferol 1000 units Tabs Take 1,000 Units by mouth Daily. aka: VITAMIN D-3 clotrimazole 1% vaginal cream 1 applicator nightly. Patient uses for his toes and feet. aka: GYNE-LOTRIMIN diclofenac 1% Gel Apply 4 g topically 4 times daily. aka: VOLTAREN lidocaine 5% patch Place 1 patch onto the skin as needed. Apply for 12 hours, then remove for 12 hours. aka: LIDODERM lisinopril 40 MG tablet Take 40 mg by mouth Daily. aka: PRINIVIL,ZESTRIL meloxicam 7.5 mg tablet Take 7.5 mg by mouth Daily. aka: MOBIC miconazole 2% powder Apply 1 Application topically 2 times daily. aka: MICATIN ondansetron 4 mg tablet As needed for nausea; stop prep; take 1 tablet; wait 30 min then resume prep; repeat 1x pr n aka: ZOFRAN pantoprazole 40 mg tablet Take 40 mg by mouth every morning (before breakfast). aka: PROTONIX simvastatin 20 mg tablet Take 20 mg by mouth nightly. aka: ZOCOR traMADol 50 mg tablet Take 50 mg by mouth every 6 hours as needed. aka: ULTRAM Activity: no driving for 2 weeks and no heavy lifting for 2 weeks Diet: cardiac diet Wound Care: keep wound clean and dry Follow-up with Vascular Clinic in 2 week. Signed: Colette Martin DO 03/22/2019 9:39 documented in thi s encounter Discharge Instructions Instructions Colette Martin DO - 03/22/2019Keep incision clean and dry, allow tape st rips to fall off. Okay to shower starting tomorrow (Saturday) AM, pat dry after shower, don't scrub incision, call with any questions or concerns. Don't drive or lift anything heavier than 10lbs or a gallon of milk for 2 weeks. Call clinic tomorrow AM after 9AM for follow up appointment in 2 weeks. Very important that you take the Plavix (clopidogrel) and Aspirin daily until instructed to stop. Check blood pressure several times a day, if Systolic (top number) is greater than 160, sandra e the Carvedilol (Coreg) 1.56mg up to 2 times a day. If you experience a headache, measure blood pressure and call for further instructions. AttachmentsThe following attachments cannot be sent through Care Everywhere.Carotid Endarte rectomy, Discharge Instructions for (Bolivian)Carotid Artery Stenting, Discharge Instructions for (Bolivian)documented in this encounter Medications at Time of Discharge [...] needed for | 2 | 0 | // | | | (ZOFRAN) 4 mg tablet [...] + + documented as of this encounter Progress Notes Holden Calderon RN - 03/22/2019 1:23 PM PDTPt discharged with all belongings, IVs were rem herbert, and pt walked off unit with care partners. Prescriptions and discharge paperwork were reviewed and sent with patient. Electronically signed by: Holden Calderon RN 03/22/2019 13:26 Colette Young D O - 03/22/2019 9:48 AM PDTIntermittent headache, right sided, blood pressure between 100-13 0 systolic. Upon further questioning, he has had these for quite some time, nothing exacerba suzanna them, usually takes pain medication and they go away (same at this point). No other comp laints, feels a little more sore today but overall feeling much better. Sitting in chair Tongue midline, smile symmetrical, speech normal, right neck without hematoma, steri-strips in place, no ecchymosis Bilateral Upper and lower extremities strength 5/5. 69 yo male with Right ICA stenosis and high bifurcation POD#2 s/p CEA and carotid stent kelsi cement Hypertension, much better overnight, all readings less than 160mmHg. Will provide Rx for DE N coreg at home for systolic >160mmHg. Further instructions in discharge summary and instructions. Stable for discharge home today . ANDOPenLuz wheat RN - 03/22/2019 4:29 AM PDTBP's 100-130's. Pt reports headache and relief with norco. Ot herwise hourly rounding uneventful and VSS. Chart check complete. Luz Zhu RN TTupLeigh sinha RN - 03/21/2019 6:11 PM PDTPt's blood pressures this morning were elevate d, nicardipine temporarily turned on and then off again after BP improved to 130-140s. BP giles s since remained in 120-130s throughout the day. Coreg had been ordered for additional BP co ntrol, both doses held as BP were <140 systolic (per order). Pt's R temporal headache manag eable with norco. Art line was removed as it was starting to fall out of place with poor wav eform/readings. No other shift events. End of shift chart review complete. Leigh Ballesteros RN Colette Jerez DO - 03/21/2019 1:09 PM PDTRight sided headache that wasn't relieved with N orco, needed fentanyl, off and on Nicardipine for blood pressure, highest 225 systolic, lore es headache this AM. Eating breakfast without complaints. Arterial line reading slightly hig her than cuff. Reminded staff that he takes 1/2 tab of Chlorthalindone not a full tab or 25m g (which is what he got this AM). NAD, sitting in chair Tongue midline, smile symmetrical, speech normal, right neck without hematoma, steri-strips in place, no ecchymosis, 10ml out of LUCIA overnight, removed. Bilateral Upper and lower extremities strength 5/5. 69 yo male with Right ICA stenosis and high bifurcation POD#1 s/p CEA and carotid stent kelsi cement Hypertension, with blood pressure High and headache, inclined to keep another night since l qiana 1.5 hours away. Will add very low dose coreg for SBP greater than 140 mmHG despite "floyd rgy" when he didn't understand his medications and took too much beta faith and got dizzy. Need to ensure no further headache and BP remains within more ideal range. Corrected the do camilo of his chlorthalidone this AM for tomorrow to 1/2 the dose received today. On plavix, will need Rx at discharge, hopefully tomorrow AM. ANDOPenafLuz adam RN - 03/21/2019 4:28 AM PDTChart check complete. Luz Zhu RN Tdocumented in this encounter Plan of Treatment Not on filedocumented as of this encounter Procedures + +--------+ + + + | Procedure Name | Priori | Date/Time | Associated Diagnosis | Comments | | | ty | | | | + +--------+ + + + | CBC WITH | Routin | 03/22/2019 | | Results for this | | DIFFERENTIAL | e | 4:01 AM | | procedure are in the | | | | PDT | | results section. | + +--------+ + + + | BASIC METABOLIC | Routin | 03/22/2019 | | Results for this | | PANEL | e | 4:01 AM | | procedure are in the | | | | PDT | | results section. | + +--------+ + + + | BASIC METABOLIC | Routin | 03/21/2019 | | Results for this | | PANEL | e | 6:42 AM | | procedure are in the | | | | PDT | | results section. | + +--------+ + + + | CBC WITH | Routin | 03/21/2019 | | Results for this | | DIFFERENTIAL | e | 6:30 AM | | procedure are in the | | | | PDT | | results section. | + +--------+ + + + documented in this encounter Results CBC with Differential (03/22/2019 4:01 AM PDT) + + + + + + | Component | Value | Ref Range | Performed | Pathologist | | | | | At | Signature | + + + + + + | WBC | 12.68 (H) | 3.80 - 11.00 | [facility] | | | | | K/uL | LABORATORY | | + + + + + + | RBC | 4.57 | 4.20 - 5.70 | [facility] | | | | | M/uL | LABORATORY | | + + + + + + | Hemoglobin | 14.6 | 13.2 - 17.0 | [facility] | | | | | g/dL | LABORATORY | | + + + + + + | Hematocrit | 43.8 | 39.0 - 50.0 % | [facility] | | | | | | LABORATORY | | + + + + + + | MCV | 95.8 | 80.0 - 100.0 fl | [facility] | | | | | | LABORATORY | | + + + + + + | MCH | 32.0 | 27.0 - 34.0 pg | [facility] | | | | | | LABORATORY | | + + + + + + | MCHC | 33.3 | 32.0 - 35.5 | [facility] | | | | | g/dL | LABORATORY | | + + + + + + | RDW-SD | 49.0 | 37 - 53 fl | [facility] | | | | | | LABORATORY | | + + + + + + | Platelet | 241 | 150 - 400 K/uL | [facility] | | | Count | | | LABORATORY | | + + + + + + | MPV | 8.6 | fl | [facility] | | | | | | LABORATORY | | + + + + + + | Diff Type | AUTOMATED | | [facility] | | | | | | LABORATORY | | + + + + + + | % | 66.87 | % | [facility] | | | Neutrophils | | | LABORATORY | | + + + + + + | % | 23.71 | % | [facility] | | | Lymphocytes | | | LABORATORY | | + + + + + + | Monocyte % | 8.03 | % | [facility] | | | | | | LABORATORY | | + + + + + + | Eosinophils | 0.92 | % | [facility] | | | % | | | LABORATORY | | + + + + + + | Basophils % | 0.47 | % | [facility] | | | | | | LABORATORY | | + + + + + + | Neutrophils | 8.48 (H) | 1.90 - 7.40 | [facility] | | | , Absolute | | K/uL | LABORATORY | | + + + + + + | Absolute | 3.01 | 1.00 - 3.90 | [facility] | | | Lymphocytes | | K/uL | LABORATORY | | + + + + + + | Absolute | 1.02 (H) | 0.00 - 0.80 | [facility] | | | Monocytes | | K/uL | LABORATORY | | + + + + + + | Eosinophils | 0.12 | 0.00 - 0.50 | [facility] | | | , Absolute | | K/uL | LABORATORY | | + + + + + + | Basophils, | 0.06Comment: Testing | 0.00 - 0.10 | [facility] | | | Absolute | performed at [facility], [address] | K/uL | LABORATORY | | | | [address], | | | | | | [place] [address] | | | | + + + + + + + + | Specimen | + + | Blood | + + + + + + + | Performing | Address | City/State/Zipcode | Phone Number | | Organization | | | | + + + + + | [facility] | [address] | [place] [address] | [phone] | + + + + + Basic Metabolic Panel (03/22/2019 4:01 AM PDT) + + + + + + | Component | Value | Ref Range | Performed | Pathologist | | | | | At | Signature | + + + + + + | Na | 141 | 135 - 145 | [facility] | | | | | mmol/L | LABORATORY | | + + + + + + | K | 4.1 | 3.5 - 4.9 | [facility] | | | | | mmol/L | LABORATORY | | + + + + + + | Cl | 106 | 99 - 109 mmol/L | [facility] | | | | | | LABORATORY | | + + + + + + | CO2 | 26 | 23 - 32 mmol/L | [facility] | | | | | | LABORATORY | | + + + + + + | Anion Gap | 13 | 5 - 20 mmol/L | [facility] | | | | | | LABORATORY | | + + + + + + | Glucose | 133 (H) | 65 - 99 mg/dL | [facility] | | | | | | LABORATORY | | + + + + + + | BUN | 25 | 8 - 25 mg/dL | [facility] | | | | | | LABORATORY | | + + + + + + | Creatinine | 1.0 | 0.70 - 1.30 | [facility] | | | | | mg/dL | LABORATORY | | + + + + + + | BUN/Creatin | 25 | | [facility] | | | ine Ratio | | | LABORATORY | | + + + + + + | Calcium | 9.1 | 8.5 - 10.5 | [facility] | | | | | mg/dL | LABORATORY | | + + + + + + | Estimated | >60Comment: GFR <60: | >60 | [facility] | | | GFR | CHRONIC KIDNEY DISEASE, | mL/min/1.73m2 | LABORATORY | | | | IF FOUND OVER [...] | | | | | performed at [facility], [address] | | | | | | [facility] ([place], [place]), | | | | | | [place] [address] | | | | + + + + + + + + | Specimen | + + | Blood | + + + + + + + | Performing | Address | City/State/Zipcode | Phone Number | | Organization | | | | + + + + + | [facility] | [address] | [place] [address] | [phone] | + + + + + Basic Metabolic Panel (03/21/2019 6:42 AM PDT) + + + + + + | Component | Value | Ref Range | Performed | Pathologist | | | | | At | Signature | + + + + + + | Na | 141 | 135 - 145 | [facility] | | | | | mmol/L | LABORATORY | | + + + + + + | K | 3.7 | 3.5 - 4.9 | [facility] | | | | | mmol/L | LABORATORY | | + + + + + + | Cl | 107 | 99 - 109 mmol/L | [facility] | | | | | | LABORATORY | | + + + + + + | CO2 | 27 | 23 - 32 mmol/L | [facility] | | | | | | LABORATORY | | + + + + + + | Anion Gap | 11 | 5 - 20 mmol/L | [facility] | | | | | | LABORATORY | | + + + + + + | Glucose | 137 (H) | 65 - 99 mg/dL | [facility] | | | | | | LABORATORY | | + + + + + + | BUN | 14 | 8 - 25 mg/dL | [facility] | | | | | | LABORATORY | | + + + + + + | Creatinine | 0.96 | 0.70 - 1.30 | [facility] | | | | | mg/dL | LABORATORY | | + + + + + + | BUN/Creatin | 15 | | [facility] | | | ine Ratio | | | LABORATORY | | + + + + + + | Calcium | 8.4 (L) | 8.5 - 10.5 | [facility] | | | | | mg/dL | LABORATORY | | + + + + + + | Estimated | >60Comment: GFR <60: | >60 | [facility] | | | GFR | CHRONIC KIDNEY DISEASE, | mL/min/1.73m2 | LABORATORY | | | | IF FOUND OVER [...] | | | | | | MDRD [facility] traceable | | | | | | equation.Testing | | | | | | performed at [facility] [facility], [place] | | | | | | [address] | | | | + + + + + + + + | Specimen | + + | Blood | + + + + + + + | Performing | Address | City/State/Zipcode | Phone Number | | Organization | | | | + + + + + | [facility] | [address] [facility] | [place] [address] | [phone] | + + + + + CBC with Differential (03/21/2019 6:30 AM PDT) + + + + + + | Component | Value | Ref Range | Performed | Pathologist | | | | | At | Signature | + + + + + + | WBC | 14.13 (H) | 3.80 - 11.00 | [facility] | | | | | K/uL | LABORATORY | | + + + + + + | RBC | 4.44 | 4.20 - 5.70 | [facility] | | | | | M/uL | LABORATORY | | + + + + + + | Hemoglobin | 14.3 | 13.2 - 17.0 | [facility] | | | | | g/dL | LABORATORY | | + + + + + + | Hematocrit | 41.9 | 39.0 - 50.0 % | [facility] | | | | | | LABORATORY | | + + + + + + | MCV | 94.3 | 80.0 - 100.0 fl | [facility] | | | | | | LABORATORY | | + + + + + + | MCH | 32.1 | 27.0 - 34.0 pg | [facility] | | | | | | LABORATORY | | + + + + + + | MCHC | 34.1 | 32.0 - 35.5 | [facility] | | | | | g/dL | LABORATORY | | + + + + + + | RDW-SD | 45.9 | 37 - 53 fl | [facility] | | | | | | LABORATORY | | + + + + + + | Platelet | 219 | 150 - 400 K/uL | [facility] | | | Count | | | LABORATORY | | + + + + + + | MPV | 8.5 | fl | [facility] | | | | | | LABORATORY | | + + + + + + | Diff Type | AUTOMATED | | [facility] | | | | | | LABORATORY | | + + + + + + | % | 72.06 | % | [facility] | | | Neutrophils | | | LABORATORY | | + + + + + + | % | 18.45 | % | [facility] | | | Lymphocytes | | | LABORATORY | | + + + + + + | Monocyte % | 9.08 | % | [facility] | | | | | | LABORATORY | | + + + + + + | Eosinophils | 0.08 | % | [facility] | | | % | | | LABORATORY | | + + + + + + | Basophils % | 0.33 | % | [facility] | | | | | | LABORATORY | | + + + + + + | Neutrophils | 10.18 (H) | 1.90 - 7.40 | [facility] | | | , Absolute | | K/uL | LABORATORY | | + + + + + + | Absolute | 2.61 | 1.00 - 3.90 | [facility] | | | Lymphocytes | | K/uL | LABORATORY | | + + + + + + | Absolute | 1.28 (H) | 0.00 - 0.80 | [facility] | | | Monocytes | | K/uL | LABORATORY | | + + + + + + | Eosinophils | 0.01 | 0.00 - 0.50 | [facility] | | | , Absolute | | K/uL | LABORATORY | | + + + + + + | Basophils, | 0.05Comment: Testing | 0.00 - 0.10 | [facility] | | | Absolute | performed at [facility] [place] | [address] | LABORATORY | | | | [address];[place] | | | | | | [address] | | | | + + + + + + + + | Specimen | + + | Blood | + + + + + + + | Performing | Address | City/State/Zipcode | Phone Number | | Organization | | | | + + + + + | [facility] | [address] | [place] [address] | [phone] | + + + + + documented in this encounter Visit Diagnoses + + | Diagnosis | + + | Carotid stenosis, asymptomatic, right - Primary | + + | Obstructive sleep apnea on CPAP Obstructive sleep apnea (adult) (pediatric) | + + documented in this encounter Administered Medications + +--------+---------+------+------+------+ | Medication Order | MAR | Action | Dose | Rate | Site | | | Action | Date | | | | + +--------+---------+------+------+------+ + +---+ | acetaminophen (TYLENOL) | | | suppository 650 mg 650 mg, | | | Rectal, EVERY 6 HOURS PRN, Pain, | | | Fever, Starting Sat03/20/19 at | | | 1924, Give suppository if patient | | | unable to tolerate oral., | | + +---+ | | | + +---+ | acetaminophen (TYLENOL) tablet | | | 650 mg 650 mg, Oral, EVERY 6 | | | HOURS PRN, Pain, Fever, Starting | | | Sat03/20/19 at 1924, Give | | | suppository if patient unable to | | | tolerate oral., | | + +---+ | | | + +---+ + +-------+ +-------+---+---+ | aspirin EC tablet 81 mg 81 mg, | Given | 03/22/20 | 81 mg | | | | Oral, DAILY, First dose on Sat | | 19 8:21 | | | | | 03/21/19 at 0900 | | AM PDT | | | | + +-------+ +-------+---+---+ +-------+ +-------+---+---+ | Given | 03/21/20 | 81 mg | | | | | 19 8:12 | | | | | | AM PDT | | | | +-------+ +-------+---+---+ +---+---+ | | | +---+---+ + +-------+ +-------+---+---+ | atorvaSTATin (LIPITOR) tablet | Given | 03/21/20 | 10 mg | | | | 10 mg 10 mg, Oral, NIGHTLY, | | 19 8:25 | | | | | First dose on 03/21/19 at 2100 | | PM PDT | | | | + +-------+ +-------+---+---+ + +---+ | | | + +---+ | carvedilol (COREG) tablet | | | 1.5625 mg 1.5625 mg, Oral, 2 | | | TIMES DAILY WITH BREAKFAST & | | | DINNER, First dose on 03/21/19 | | | at 1115, Hold for systolic less | | | than 140 or heart rate less than | | | 70, | | + +---+ | | | + +---+ + +-------+ +---------+---+---+ | chlorthalidone tablet 12.5 mg | Given | 03/22/20 | 12.5 mg | | | | 12.5 mg, Oral, DAILY, First dose | | 19 8:21 | | | | | (after last modification) on Sun | | AM PDT | | | | | 03/22/19 at 0900 | | | | | | + +-------+ +---------+---+---+ +---+---+ | | | +---+---+ + +-------+ +-------+---+---+ | chlorthalidone tablet 25 mg 25 | Given | 03/21/20 | 25 mg | | | | mg, Oral, DAILY, First dose on | | 19 7:58 | | | | | 03/21/19 at 0900 | | AM PDT | | | | + +-------+ +-------+---+---+ +---+---+ | | | +---+---+ + +-------+ +-------+---+---+ | clopidogrel (PLAVIX) tablet 75 | Given | 03/22/20 | 75 mg | | | | mg 75 mg, Oral, DAILY, First | | 19 8:21 | | | | | dose on 03/21/19 at 0900 | | AM PDT | | | | + +-------+ +-------+---+---+ +-------+ +-------+---+---+ | Given | 03/21/20 | 75 mg | | | | | 19 8:00 | | | | | | AM PDT | | | | +-------+ +-------+---+---+ + +---+ | | | + +---+ | fentaNYL (PF) injection 100 mcg | | | 100 mcg, Intravenous, EVERY 3 | | | HOURS PRN, Severe Pain, for | | | severe pain (7-10), Starting Sat | | | 03/20/19 at 1931, Give IV if | | | patient unable to tolerate oral | | | pain medication., | | + +---+ | | | + +---+ + +-------+ +--------+---+---+ | fentaNYL (PF) injection 50 mcg | Given | 03/21/20 | 50 mcg | | | | 50 mcg, Intravenous, EVERY 3 | | 19 7:56 | | | | | HOURS PRN, Other, for moderate | | AM PDT | | | | | pain (4-6), Starting Sat03/20/19 | | | | | | | at 193, Give IV if patient | | | | | | | unable to tolerate oral pain | | | | | | | medication., | | | | | | + +-------+ +--------+---+---+ +---+---+ | | | +---+---+ + +-------+ +---------+---+---+ | HYDROcodone-acetaminophen | Given | 03/22/20 | 2 | | | | (NORCO) 5-325 mg per tablet 1-2 | | 19 8:54 | tablets | | | | tablet 1-2 tablet, Oral, EVERY 4 | | AM PDT | | | | | HOURS PRN, Pain, Starting Fri | | | | | | | 03/20/19 at 1936, If patient | | | | | | | unable to tolerate oral pain | | | | | | | medication, give IV if ordered. | | | | | | | If no IV pain medication ordered, | | | | | | | contact provider., | | | | | | + +-------+ +---------+---+---+ +-------+ + +---+---+ | Given | 03/22/20 | 2 | | | | | 19 4:57 | tablets | | | | | AM PDT | | | | +-------+ + +---+---+ | Given | 03/22/20 | 1 tablet | | | | | 19 12:56 | | | | | | AM PDT | | | | +-------+ + +---+---+ + +---+ | | | + +---+ | lactated ringers (LR) infusion | | | at 110 mL/hr, Intravenous, | | | CONTINUOUS, Starting 03/20/19 | | | at 2015 | | + +---+ | | | + +---+ + +-------+ +-------+---+---+ | lisinopril (PRINIVIL, ZESTRIL) | Given | 03/22/20 | 40 mg | | | | tablet 40 mg 40 mg, Oral, DAILY, | | 19 8:21 | | | | | First dose on 03/21/19 at | | AM PDT | | | | | 0900 | | | | | | + +-------+ +-------+---+---+ +-------+ +-------+---+---+ | Given | 03/21/20 | 40 mg | | | | | 19 8:01 | | | | | | AM PDT | | | | +-------+ +-------+---+---+ +---+---+ | | | +---+---+ + +-------+ +--------+---+---+ | meloxicam (MOBIC) tablet 7.5 mg | Given | 03/22/20 | 7.5 mg | | | | 7.5 mg, Oral, DAILY, First dose | | 19 8:21 | | | | | on 03/21/19 at 0900 | | AM PDT | | | | + +-------+ +--------+---+---+ +-------+ +--------+---+---+ | Given | 03/21/20 | 7.5 mg | | | | | 19 8:01 | | | | | | AM PDT | | | | +-------+ +--------+---+---+ +---+---+ | | | +---+---+ + + + +-------+-------+---+ | niCARdipine in saline (CARDENE) | Restarte | 03/21/20 | 2.5 | 12.5 | | | 0.2 mg/mL infusion 0-15 mg/hr | d | 19 8:19 | mg/hr | mL/hr | | | (0-75 mL/hr), at 0-75 mL/hr, | | AM PDT | | | | | Intravenous, TITRATED, Starting | | | | | | | 03/20/19 at 2015, In emergent | | | | | | | situations, more rapid titration | | | | | | | may be clinically indicated. | | | | | | | Notify provider if HR < 60 bpm | | | | | | | and/or patient is at max dose | | | | | | | without goal achieved. Protect | | | | | | | from light., Titration | | | | | | | Instruction: See below, Goal: | | | | | | | Other, Other goal: SBP < 160 mmHg | | | | | | | or DBP < 110 mmHg, Initial dose: | | | | | | | 2.5 mg/hr, Increase rate by: 5 | | | | | | | mg/hr every 5 minutes., Decrease | | | | | | | rate by: 5 mg/hr every 5 | | | | | | | minutes., *: Titrate drug per | | | | | | | order as tolerated. Titration may | | | | | | | vary based on the patient | | | | | | | | | | | | | | s critical condition. | | | | | | + + + +-------+-------+---+ +---+---+ | | | +---+---+ + +-------+ +------+---+---+ | ondansetron (ZOFRAN ODT) | Given | 03/22/20 | 4 mg | | | | disintegrating tablet 4 mg 4 mg, | | 19 6:35 | | | | | Oral, EVERY 6 HOURS PRN, Nausea, | | AM PDT | | | | | Vomiting, Starting Sat03/20/19 | | | | | | | at 1925, Give PO if no IV access. | | | | | | | Notify provider if treatment | | | | | | | ineffective., | | | | | | + +-------+ +------+---+---+ +---+---+ | | | +---+---+ + +-------+ +------+---+---+ | ondansetron (ZOFRAN) injection | Given | 03/21/20 | 4 mg | | | | 4 mg 4 mg, Intravenous, EVERY 6 | | 19 7:56 | | | | | HOURS PRN, Nausea, Vomiting, | | AM PDT | | | | | Starting Sat03/20/19 at 1929, | | | | | | | Give PO if no IV access. Notify | | | | | | | provider if treatment | | | | | | | ineffective., | | | | | | + +-------+ +------+---+---+ +---+---+ | | | +---+---+ + +-------+ +-------+---+---+ | pantoprazole (PROTONIX) DR | Given | 03/22/20 | 40 mg | | | | tablet 40 mg 40 mg, Oral, DAILY | | 19 6:35 | | | | | BEFORE BREAKFAST, First dose on | | AM PDT | | | | | 03/21/19 at 0730, Do not cut | | | | | | | or crush., Indication: Unknown, | | | | | | | provider to assess | | | | | | + +-------+ +-------+---+---+ +-------+ +-------+---+---+ | Given | 03/21/20 | 40 mg | | | | | 19 8:00 | | | | | | AM PDT | | | | +-------+ +-------+---+---+ + +---+ | | | + +---+ | pharmacy consult - other | | | medications/reasons PHARMACY | | | CONSULT, Starting 03/20/19 at | | | 2055, Pharmacy to consult for | | | another reason? Adjust medication | | | for creatinine clearance | | + +---+ | | | + +---+ | phenylephrine (GARIMA-SYNEPHRINE, | | | VAZCULEP) 100 mcg/mL in sodium | | | chloride 0.9% 500 mL infusion | | | 0-60 mcg/min (0-36 mL/hr), at | | | 0-36 mL/hr, Intravenous, | | | TITRATED, Starting 03/20/19 at | | | 2015, In emergent situations, | | | more rapid titration may be | | | clinically indicated. Notify | | | provider if at max dose for 5 | | | minutes, goal not achieved at max | | | dose, and/or HR < 60 bpm, | | | Titration Instruction: See below, | | | Goal: MAP 65 and greater, | | | Initial dose: 10 mcg/min, | | | Increase rate by: 10 mcg/min | | | every 5 minutes., Decrease rate | | | by: 10 mcg/min every 5 minutes., | | | *: Titrate drug per order as | | | tolerated. Titration may vary | | | based on the patient | | | | | | s critical condition. | | + +---+ | | | + +---+ | polyethylene glycol (MIRALAX) | | | powder 17 g 17 g, Oral, DAILY | | | PRN, Constipation, Starting Fri | | | 03/20/19 at 1924, Mix with 8 oz. | | | water., | | + +---+ | | | + +---+ | sodium chloride 0.9% injection | | | flush 10 mL 10 mL, | | | Intracatheter, EVERY 8 HOURS PRN, | | | Line Care, Every 8 Hours PRN for | | | Line Care, when tolerating oral | | | fluids, Starting Sat03/20/19 at | | | 2137 | | + +---+ | | | + +---+ | zolpidem (AMBIEN) tablet 5 mg | | | 5 mg, Oral, NIGHTLY PRN, MAY | | | REPEAT X 1, Insomnia, Starting | | | Sat03/20/19 at 1925 | | + +---+ | | | + +---+ documented in this encounter
--- OUTSIDE RECORDS SUMMARY | ~2020-01-04 | XMS | Encounter Summary ---
Demographics + + + | Address | [address] | | | [place] [address] | + + + | Home Phone | | + + + | Preferred Language | Unknown | + + + | Marital Status | Single | + + + | Worship Affiliation | Unknown | + + + | Race | Unknown | + + + | Ethnic Group | Unknown | + + + Author + + + | Author | [facility] | | | and Jose Aana | + + + | Organization | [facility] | | | and Jose [...] Team Providers + +------+ + | Care Jig Operator Name | Role | Phone | [...] | | | | VAS Carotid | [id number] | | | | | | Duplex | Phone: | | | | | | Bilateral | [phone] | | | | | | | Fax: | | | | | | | [phone] | | +--------+--------+ + + + + Reason for Visit +---------+ + | Reason | Comments | +---------+ + | Post Op | | +---------+ + Encounter Details +--------+ + + + + | Date | Type | Department | Care Team | Description | +--------+ + + + + | 03/23/ | Telephone | [facility] | Ivone Soares DNP | Post Op | | 2019 | | VASCULAR SURGERY | [address] | | | | | [address] | [place], [place] | | | | | [place], [place] | [address] | | | | | [address] | | | | | | [phone] | | | +--------+ + + + [...] Not on filedocumented as of this encounter Results VAS Carotid Duplex Bilateral [...] Signed by: Alvaro Licea, | | | Felicianopender Sign Date/Time: 04/09/2019 3:24 PM | | [...] | | | | Signed by: Alvaro Licea, Amelie | | Sign Date/Time: 04/09/2019 3:24 PM | + + + +---------+ + + | Performing | Address | City/State/Zipcode | Phone Number | | Organization | | | | + +---------+ + + | [facility] | | | | + +---------+ + + documented in this encounter Visit Diagnoses + + | Diagnosis | + + | Carotid stenosis, bilateral - Primary Occlusion and stenosis of multiple and | | bilateral precerebral arteries without mention of cerebral infarction | + + documented in this encounter"
--- OUTSIDE RECORDS SUMMARY | ~2020-01-04 | XMS | Encounter Summary ---
Demographics + + + | Address | [address] [place] | | | [place] [address] | + + + | Home Phone | | + + + | Preferred Language | Unknown | + + + | Marital Status | Single | + + + | Catholic Affiliation | Unknown | + + + | Race | Unknown | + + + | Ethnic Group | Unknown | + + + Author + + + | Author | [facility] | | | and Jose Aana | + + + | Organization | [facility] | | | [...] Team Providers + +------+ + | Care Staff Nurse Icu Resource Team Name | Role | Phone | + [...] | | | | VAS Carotid | [id number] | | | | | | Duplex | Phone: | | | | | | Bilateral | [phone] | | | | | | | Fax: | | | | | | | [phone] | | +--------+--------+ + + + + Encounter Details +--------+ + + + + | Date | Type | Department | Care Team | Description | +--------+ + + + + | 04/09/ | Hospital | [facility] | | Carotid stenosis, | | 2019 | Encounter | VASCULAR SURGERY | | bilateral | | | | ULTRASOUND [address] | | | | | | [address] | | | | | | [place] | | | | | | [address] | | | | | | [phone] | | | +--------+ + + + [...]
--- OUTSIDE RECORDS SUMMARY | ~2020-01-04 | XMS | Encounter Summary ---
Demographics + + + | Address | [address] | | | [place] [address] | + + + | Home Phone | | + + + | Preferred Language | Unknown | + + + | Marital Status | Single | + + + | Synagogue Affiliation | Unknown | + + + | Race | Unknown | + + + | Ethnic Group | Unknown | + + + Author + + + | Author | [facility] | | | and [place] Aana | + + + | Organization | [facility] | | | and Jose [...] Team Providers + +------+ + | Care Email Administrator Name | Role | Phone | + +------+ + | Paul Mobley | PCP | | + +------+ + Encounter Details +--------+ + + + + | Date | Type | Department | Care Team | Description | +--------+ + + + + | 03/25/ | Abstract | [facility] | Provider, | | | 2017 | | GASTROENTEROLOGY | MD Jennifer Collier | | | | | [address] [place] | [place] | | | | | [address] | [place] [address] | | | | | [address] | | | | | | [phone] | | | +--------+ + + + + Social History + +-------+ +--------+------+ | Tobacco Use | Types | Packs/Day | Years | Date | | | | | Used | | + +-------+ +--------+------+ | Never Smoker | | | | | + +-------+ +--------+------+ + + +---------+ + | Alcohol Use [...] + + | COMPREHENSIVE | Routin | 03/25/2018 | | Results for this | | METABOLIC PANEL | e | | | procedure are in the | | | | | | results section. | + +--------+ + + + | EXTERNAL LAB: BUN | Routin | 02/06/2018 | | Results for this | | | e | | | procedure are in the | | | | | | results section. | + +--------+ + + + | EXTERNAL LAB: | Routin | 02/06/2018 | | Results for this | | GLUCOSE | e | | | procedure are in the | | | | | | results section. | + +--------+ + + + | EXTERNAL LAB: PSA | Routin | 02/06/2018 | | Results for this | | | e | | | procedure are in the | | | | | | results section. | + +--------+ + + + | EXTERNAL LAB: ALT | Routin | 02/06/2018 | | Results for this | | | e | | | procedure are in the | | | | | | results section. | + +--------+ + + + | EXTERNAL LAB: AST | Routin | 02/06/2018 | | Results for this | | | e | | | procedure are in the | | | | | | results section. | + +--------+ + + + | EXTERNAL LAB: | Routin | 02/06/2018 | | Results for this | | ALKALINE PHOSPHATASE | e | | | procedure are in the | | | | | | results section. | + +--------+ + + + | EXTERNAL LAB: | Routin | 02/06/2018 | | Results for this | | BILIRUBIN, TOTAL | e | | | procedure are in the | | | | | | results section. | + +--------+ + + + | EXTERNAL LAB: | Routin | 02/06/2018 | | Results for this | | ALBUMIN | e | | | procedure are in the | | | | | | results section. | + +--------+ + + + | EXTERNAL LAB: | Routin | 02/06/2018 | | Results for this | | PROTEIN, TOTAL | e | | | procedure are in the | | | | | | results section. | + +--------+ + + + | EXTERNAL LAB: | Routin | 02/06/2018 | | Results for this | | CALCIUM | e | | | procedure are in the | | | | | | results section. | + +--------+ + + + | EXTERNAL LAB: | Routin | 02/06/2018 | | Results for this | | URINALYSIS | e | | | procedure are in the | | | | | | results section. | + +--------+ + + + | EXTERNAL LAB: CBC | Routin | 02/06/2018 | | Results for this | | | e | | | procedure are in the | | | | | | results section. | + +--------+ + + + | EXTERNAL LAB: TSH | Routin | 02/06/2018 | | Results for this | | | e | | | procedure are in the | | | | | | results section. | + +--------+ + + + | EXTERNAL LAB: | Routin | 02/06/2018 | | Results for this | | TRIGLYCERIDES | e | | | procedure are in the | | | | | | results section. | + +--------+ + + + | EXTERNAL LAB: | Routin | 02/06/2018 | | Results for this | | CHOLESTEROL, HDL | e | | | procedure are in the | | | | | | results section. | + +--------+ + + + | EXTERNAL LAB: | Routin | 02/06/2018 | | Results for this | | CHOLESTEROL, TOTAL | e | | | procedure are in the | | | | | | results section. | + +--------+ + + + | EXTERNAL LAB: | Routin | 02/06/2018 | | Results for this | | CHOLESTEROL, LDL | e | | | procedure are in the | | | | | | results section. | + +--------+ + + + | EXTERNAL LAB: EGFR | Routin | 02/06/2018 | | Results for this | | | e | | | procedure are in the | | | | | | results section. | + +--------+ + + + | EXTERNAL LAB: | Routin | 02/06/2018 | | Results for this | | CREATININE | e | | | procedure are in the | | | | | | results section. | + +--------+ + + + | LIPID PANEL | Routin | 02/06/2018 | | Results for this | | | e | | | procedure are in the | | | | | | results section. | + +--------+ + + + | TOXICOLOGY SCREEN | Routin | 02/06/2018 | | Results for this | | | e | | | procedure are in the | | | | | | results section. | + +--------+ + + + | URINALYSIS, REFLEX | Routin | 02/06/2018 | | Results for this | | MICROSCOPIC AND/OR | e | | | procedure are in the | | CULTURE | | | | results section. | + +--------+ + + + | CBC WITH | Routin | 02/06/2018 | | Results for this | | DIFFERENTIAL | e | | | procedure are in the | | | | | | results section. | + +--------+ + + + | COMPREHENSIVE | Routin | 02/06/2018 | | Results for this | | METABOLIC PANEL | e | | | procedure are in the | | | | | | results section. | + +--------+ + + + documented in this encounter Results Comprehensive Metabolic Panel (03/25/2018) + + | Specimen | + + | Blood | + + + + + | Narrative | Performed At | + + + | Opened in error | | + + + Toxicology Screen (02/06/2018) + + + + + + | Component | Value | Ref Range | Performed | Pathologist | | | | | At | Signature | + + + + + + | Creatinine | 121.8 | | | | + + + + + + | Amphetamine | Negative | | | | | s | | | | | + + + + + + | Barbiturate | Negative | | | | | s Screen, | | | | | | Urine | | | | | + + + + + + | Benzodiazep | Negative | | | | | am | | | | | + + + + + + | Cannabinoid | Negative | | | | | s | | | | | + + + + + + | Cocaine | Negative | | | | + + + + + + | Opiates | Negative | | | | + + + + + + + + | Specimen | + + | Blood | + + Urinalysis, Reflex Microscopic and/or Culture (02/06/2018) + + + + + + | Component | Value | Ref Range | Performed | Pathologist | | | | | At | Signature | + + + + + + | Color | Yellow | | | | + + + + + + | Bilirubin, | Negative | Negative | | | | Urine | | | | | + + + + + + | Urobilinoge | <2.0 mg/dL | < 0.2 mg/dL, | | | | n, Urine | | 1.0 mg/dL, 4.0 | | | | | | mg/dL, Normal, | | | | | | 1.0 E.U./dL, | | | | | | 0.2 E.U./dL, | | | | | | 0.2 mg/dL, | | | | | | Negative, 1 | | | | | | mg/dL, <2.0 | | | | | | mg/dL | | | + + + + + + | Nitrite, | Negative | Negative | | | | Urine | | | | | + + + + + + | Mucus, UA | Rare | | | | + + + + + + | WBC | <1 | 0 - 5 /HPF | | | + + + + + + | Squamous | <1 | | | | | epithelial, | | | | | | UA, POC | | | | | + + + + + + + + | Specimen | + + | Urine | + + External Lab: Urinalysis (02/06/2018) + + + + + + | Component | Value | Ref Range | Performed | Pathologist | | | | | At | Signature | + + + + + + | UA Blood, | Negative | | EXTERNAL | | | External | | | LAB | | + + + + + + | UA Glucose, | Negative | | EXTERNAL | | | External | | | LAB | | + + + + + + | UA Ketones, | Negative | | EXTERNAL | | | External | | | LAB | | + + + + + + | UA Ph, | 5.0 | 5 - 8 | EXTERNAL | | | External | | | LAB | | + + + + + + | UA | Negative | | EXTERNAL | | | Proteins, | | | LAB | | | External | | | | | + + + + + + | UA RBC, | <1 | 0 - 3 | EXTERNAL | | | External | | | LAB | | + + + + + + | UA Specific | 1.020 | 1.001 - 1.03 | EXTERNAL | | | [place], | | | LAB | | | External | | | | | + + + + + + | UA | Negative | | EXTERNAL | | | Leukocyte | | | LAB | | | Esterase, | | | | | | External | | | | | + + + + + + + +---------+ + + | Performing | Address | City/State/Zipcode | Phone Number | | Organization | | | | + +---------+ + + | EXTERNAL LAB | | | | + +---------+ + + Comprehensive Metabolic Panel (02/06/2018) + +-------+ + + + | Component | Value | Ref Range | Performed | Pathologist | | | | | At | Signature | + +-------+ + + + | Globulin | 2.7 | 2.3 - 3.5 g/dL | | | + +-------+ + + + + + | Specimen | + + | Blood | + + CBC with Differential (02/06/2018) + +-------+ + + + | Component | Value | Ref Range | Performed | Pathologist | | | | | At | Signature | + +-------+ + + + | MCH | 31.0 | 26.0 - 33.0 pg | | | + +-------+ + + + | MCHC | 32.8 | 31.0 - 37.0 % | | | + +-------+ + + + | % Basophils | 1.5 | 0.0 - 2.0 % | | | + +-------+ + + + + + | Specimen | + + | Blood | + + External Lab: BUN (02/06/2018) + +--------+ + + + | Component | Value | Ref Range | Performed | Pathologist | | | | | At | Signature | + +--------+ + + + | BUN, | 25 (A) | 7 - 23 | EXTERNAL | | | External | | | LAB | | + +--------+ + + + + +---------+ + + | Performing | Address | City/State/Zipcode | Phone Number | | Organization | | | | + +---------+ + + | EXTERNAL LAB | | | | + +---------+ + + External Lab: Glucose (02/06/2018) + +-------+ + + + | Component | Value | Ref Range | Performed | Pathologist | | | | | At | Signature | + +-------+ + + + | Glucose, | 93 | 71 - 109 | EXTERNAL | | | External | | | LAB | | + +-------+ + + + + +---------+ + + | Performing | Address | City/State/Zipcode | Phone Number | | Organization | | | | + +---------+ + + | EXTERNAL LAB | | | | + +---------+ + + External Lab: PSA (02/06/2018) + +-------+ + + + | Component | Value | Ref Range | Performed | Pathologist | | | | | At | Signature | + +-------+ + + + | PSA, | 0.3 | 0 - 4 | EXTERNAL | | | External | | | LAB | | + +-------+ + + + + +---------+ + + | Performing | Address | City/State/Zipcode | Phone Number | | Organization | | | | + +---------+ + + | EXTERNAL LAB | | | | + +---------+ + + External Lab: ALT (02/06/2018) + +-------+ + + + | Component | Value | Ref Range | Performed | Pathologist | | | | | At | Signature | + +-------+ + + + | ALT, | 16 | 9 - 57 | EXTERNAL | | | External | | | LAB | | + +-------+ + + + + +---------+ + + | Performing | Address | City/State/Zipcode | Phone Number | | Organization | | | | + +---------+ + + | EXTERNAL LAB | | | | + +---------+ + + External Lab: AST (02/06/2018) + +-------+ + + + | Component | Value | Ref Range | Performed | Pathologist | | | | | At | Signature | + +-------+ + + + | AST, | 16 | 14 - 44 | EXTERNAL | | | External | | | LAB | | + +-------+ + + + + +---------+ + + | Performing | Address | City/State/Zipcode | Phone Number | | Organization | | | | + +---------+ + + | EXTERNAL LAB | | | | + +---------+ + + External Lab: Alkaline Phosphatase (02/06/2018) + +-------+ + + + | Component | Value | Ref Range | Performed | Pathologist | | | | | At | Signature | + +-------+ + + + | ALP, | 88 | 45 - 129 | EXTERNAL | | | External | | | LAB | | + +-------+ + + + + +---------+ + + | Performing | Address | City/State/Zipcode | Phone Number | | Organization | | | | + +---------+ + + | EXTERNAL LAB | | | | + +---------+ + + External Lab: Bilirubin, Total (02/06/2018) + +-------+ + + + | Component | Value | Ref Range | Performed | Pathologist | | | | | At | Signature | + +-------+ + + + | Bilirubin, | 0.4 | 0.2 - 1.3 | EXTERNAL | | | Total, | | | LAB | | | External | | | | | + +-------+ + + + + +---------+ + + | Performing | Address | City/State/Zipcode | Phone Number | | Organization | | | | + +---------+ + + | EXTERNAL LAB | | | | + +---------+ + + External Lab: Albumin (02/06/2018) + +-------+ + + + | Component | Value | Ref Range | Performed | Pathologist | | | | | At | Signature | + +-------+ + + + | Albumin, | 4.5 | 3.5 - 5 | EXTERNAL | | | External | | | LAB | | + +-------+ + + + + +---------+ + + | Performing | Address | City/State/Zipcode | Phone Number | | Organization | | | | + +---------+ + + | EXTERNAL LAB | | | | + +---------+ + + External Lab: Protein, Total (02/06/2018) + +-------+ + + + | Component | Value | Ref Range | Performed | Pathologist | | | | | At | Signature | + +-------+ + + + | Protein, | 7.2 | 6.5 - 8.2 | EXTERNAL | | | Total, | | | LAB | | | External | | | | | + +-------+ + + + + +---------+ + + | Performing | Address | City/State/Zipcode | Phone Number | | Organization | | | | + +---------+ + + | EXTERNAL LAB | | | | + +---------+ + + External Lab: Calcium (02/06/2018) + +-------+ + + + | Component | Value | Ref Range | Performed | Pathologist | | | | | At | Signature | + +-------+ + + + | Calcium, | 9.4 | 8.4 - 10.5 | EXTERNAL | | | External | | | LAB | | + +-------+ + + + + +---------+ + + | Performing | Address | City/State/Zipcode | Phone Number | | Organization | | | | + +---------+ + + | EXTERNAL LAB | | | | + +---------+ + + External Lab: CBC (02/06/2018) + +---------+ + + + | Component | Value | Ref Range | Performed | Pathologist | | | | | At | Signature | + +---------+ + + + | WBC, | 10 | 3 - 10.6 | EXTERNAL | | | External | | | LAB | | + +---------+ + + + | HGB, | 14.9 | 11.8 - 17.1 | EXTERNAL | | | External | | | LAB | | + +---------+ + + + | HCT, | 45.4 | 36 - 51 | EXTERNAL | | | External | | | LAB | | + +---------+ + + + | PLT, | 275 | 150 - 400 | EXTERNAL | | | External | | | LAB | | + +---------+ + + + | Neutrophils | 54.2 | 44 - 74 | EXTERNAL | | | %, | | | LAB | | | External | | | | | + +---------+ + + + | Lymphocytes | 36.1 | 15 - 42 | EXTERNAL | | | %, | | | LAB | | | External | | | | | + +---------+ + + + | Monocytes | 0.7 | 0.2 - 1 | EXTERNAL | | | %, External | | | LAB | | + +---------+ + + + | Eosinophils | 1.5 | 0 - 7 | EXTERNAL | | | %, | | | LAB | | | External | | | | | + +---------+ + + + | Neutrophils | 5.4 | 1.2 - 7 | EXTERNAL | | | , Absolute, | | | LAB | | | External | | | | | + +---------+ + + + | Lymphocytes | 3.6 (A) | 0.6 - 3.4 | EXTERNAL | | | , Absolute, | | | LAB | | | External | | | | | + +---------+ + + + | Monocytes, | 7.2 | 4 - 13 | EXTERNAL | | | Absolute, | | | LAB | | | External | | | | | + +---------+ + + + | Eosinophils | 0.2 | 0 - 0.5 | EXTERNAL | | | , Absolute | | | LAB | | + +---------+ + + + | Basophils, | 0.1 | 0 - 0.2 | EXTERNAL | | | Absolute | | | LAB | | + +---------+ + + + | RBC, | 4.81 | 3.86 - 5.7 | EXTERNAL | | | External | | | LAB | | + +---------+ + + + | MCV, | 94 | 81 - 102 | EXTERNAL | | | External | | | LAB | | + +---------+ + + + | RDW, | 14.1 | 11.2 - 16.2 | EXTERNAL | | | External | | | LAB | | + +---------+ + + + + +---------+ + + | Performing | Address | City/State/Zipcode | Phone Number | | Organization | | | | + +---------+ + + | EXTERNAL LAB | | | | + +---------+ + + External Lab: TSH (02/06/2018) + +-------+ + + + | Component | Value | Ref Range | Performed | Pathologist | | | | | At | Signature | + +-------+ + + + | TSH, | 1.550 | 0.3 - 4.25 | EXTERNAL | | | External | | | LAB | | + +-------+ + + + + + | Specimen | + + | Blood | + + + +---------+ + + | Performing | Address | City/State/Zipcode | Phone Number | | Organization | | | | + +---------+ + + | EXTERNAL LAB | | | | + +---------+ + + External Lab: Triglycerides (02/06/2018) + +-------+ + + + | Component | Value | Ref Range | Performed | Pathologist | | | | | At | Signature | + +-------+ + + + | Triglycerid | 103 | 51 - 152 | EXTERNAL | | | es, | | | LAB | | | External | | | | | + +-------+ + + + + + | Specimen | + + | Blood | + + + +---------+ + + | Performing | Address | City/State/Zipcode | Phone Number | | Organization | | | | + +---------+ + + | EXTERNAL LAB | | | | + +---------+ + + External Lab: Cholesterol, HDL (02/06/2018) + +-------+ + + + | Component | Value | Ref Range | Performed | Pathologist | | | | | At | Signature | + +-------+ + + + | HDL | 58 | 35 - 80 mg/dl | EXTERNAL | | | Cholesterol | | | LAB | | | , External | | | | | + +-------+ + + + + + | Specimen | + + | Blood | + + + +---------+ + + | Performing | Address | City/State/Zipcode | Phone Number | | Organization | | | | + +---------+ + + | EXTERNAL LAB | | | | + +---------+ + + External Lab: Cholesterol, Total (02/06/2018) + +-------+ + + + | Component | Value | Ref Range | Performed | Pathologist | | | | | At | Signature | + +-------+ + + + | Cholesterol | 193 | 50 - 200 mg/dl | EXTERNAL | | | , Total, | | | LAB | | | External | | | | | + +-------+ + + + + + | Specimen | + + | Blood | + + + +---------+ + + | Performing | Address | City/State/Zipcode | Phone Number | | Organization | | | | + +---------+ + + | EXTERNAL LAB | | | | + +---------+ + + External Lab: Cholesterol, LDL (02/06/2018) + +-------+ + + + | Component | Value | Ref Range | Performed | Pathologist | | | | | At | Signature | + +-------+ + + + | LDL | 114 | 0 - 130 | EXTERNAL | | | Cholesterol | | | LAB | | | , Direct, | | | | | | External | | | | | + +-------+ + + + + + | Specimen | + + | Blood | + + + +---------+ + + | Performing | Address | City/State/Zipcode | Phone Number | | Organization | | | | + +---------+ + + | EXTERNAL LAB | | | | + +---------+ + + External Lab: eGFR (02/06/2018) + + + + + + | Component | Value | Ref Range | Performed | Pathologist | | | | | At | Signature | + + + + + + | eGFR, | 55.1 (A) | 60 99,999 | EXTERNAL | | | External | | | LAB | | + + + + + + + + | Specimen | + + | Blood | + + + +---------+ + + | Performing | Address | City/State/Zipcode | Phone Number | | Organization | | | | + +---------+ + + | EXTERNAL LAB | | | | + +---------+ + + External Lab: Creatinine (02/06/2018) + +-------+ + + + | Component | Value | Ref Range | Performed | Pathologist | | | | | At | Signature | + +-------+ + + + | Creatinine, | 1.3 | 0.8 - 1.5 | EXTERNAL | | | External | | | LAB | | + +-------+ + + + + + | Specimen | + + | Blood | + + + +---------+ + + | Performing | Address | City/State/Zipcode | Phone Number | | Organization | | | | + +---------+ + + | EXTERNAL LAB | | | | + +---------+ + + Lipid Panel (02/06/2018) + +---------+ + + + | Component | Value | Ref Range | Performed | Pathologist | | | | | At | Signature | + +---------+ + + + | Chol/HDL | 3.3 (A) | 3.7 - 6.7 Ratio | | | | Ratio | | | | | + +---------+ + + + | Non HDL | 135 (A) | 0 - 130 mg/dl | | | | Chol. | | | | | | (LDL+VLDL) | | | | | + +---------+ + + + + + | Specimen | + + | Blood | + + documented in this encounter Visit Diagnoses Not on filedocumented in this encounter"
--- OUTSIDE RECORDS SUMMARY | ~2020-01-04 | XMS | Encounter Summary ---
Demographics + + + | Address | [address] | | | [place] [address] | + + + | Home Phone | | + + + | Preferred Language | Unknown | + + + | Marital Status | Single | + + + | Taoist Affiliation | Unknown | + + + | Race | Unknown | + + + | Ethnic Group | Unknown | + + + Author + + + | Author | [facility] | | | and [place] | + + + | Organization | [facility] | | | and Jose [...] Team Providers + +------+ + | Care Domestic Housekeeper Name | Role | Phone | + +------+ + | Paul Mobley | PCP | | + +------+ + Encounter Details +--------+ + + + + | Date | Type | Department | Care Team | Description | +--------+ + + + + | 10/07/ | Hospital | [facility] | Ivone Soares, TORY | No Show | | 2020 | Encounter | VASCULAR SURGERY | [address] | | | | | [address] | [place], [place] | | | | | [address] | [address] | | | | | [place], [place] | | | | | | [address] | | | | | | [phone] | | | +--------+ + + + [...]
--- OUTSIDE RECORDS SUMMARY | ~2020-01-04 | XMS | Clinical Summary ---
Demographics + + + | Address | [address] | | | [place] [address] | + + + | Home Phone | | + + + | Preferred Language | Unknown | + + + | Marital Status | Single | + + + | Worship Affiliation | Unknown | + + + | Race | Unknown | + + + | Ethnic Group | Unknown | + + + Author + + + | Author | [facility] | | | and Jose Aana | + + + | Organization | [facility] | | | and Jose [...] Team Providers + +------+ + | Care Service Center Supervisor Name | Role | Phone | + +------+ + | Paul Mobley | PCP | | + +------+ + Allergies + + + + + + | Active Allergy | Reactions | Severity | Noted | Comments | | | | | Date | | + + + + + + | Atenolol | Other (See Comments) | Medium | 10/25/19 | I felt like I was | | | | | 06 | going to pass out | | | | | | Other reaction(s): | | | | | | Visual Disturbance | + + + + + + Medications + + + +---------+------+------+-------+ | Medication | Sig | Dispensed | Refills | Star | End | Statu | | | | | | t | Date | s | | | | | | Date | | | + + + +---------+------+------+-------+ | aspirin 81 mg EC | Take 81 mg by mouth | | 0 | | | Activ | | tablet | Daily. | | | | | e | + + + +---------+------+------+-------+ | clotrimazole | 1 applicator | | 0 | | | Activ | | (GYNE-LOTRIMIN) 1% | nightly. Patient | | | | | e | | vaginal cream | uses for his toes | | | | | | | | and feet. | | | | | | + + + +---------+------+------+-------+ | diclofenac | Apply 4 g topically | | 0 | | | Activ | | (VOLTAREN) 1% GEL | 4 times daily. | | | | | e | + + + +---------+------+------+-------+ | lidocaine | Place 1 patch onto | | 0 | | | Activ | | (LIDODERM) 5% patch | the skin as needed. | | | | | e | | | Apply for 12 hours, | | | | | | | | then remove for 12 | | | | | | | | hours. | | | | | | + + + +---------+------+------+-------+ | lisinopril | Take 40 mg by mouth | | 0 | | | Activ | | (PRINIVIL,ZESTRIL) | Daily. | | | | | e | | 40 MG tablet | | | | | | | + + + +---------+------+------+-------+ | meloxicam (MOBIC) | Take 7.5 mg by mouth | | 0 | | | Activ | | 7.5 mg tablet | Daily. | | | | | e | + + + +---------+------+------+-------+ | miconazole | Apply 1 Application | | 0 | | | Activ | | (MICATIN) 2% powder | topically 2 times | | | | | e | | | daily. | | | | | | + + + +---------+------+------+-------+ | pantoprazole | Take 40 mg by mouth | | 0 | | | Activ | | (PROTONIX) 40 mg | every morning | | | | | e | | tablet | (before breakfast). | | | | | | + + + +---------+------+------+-------+ | simvastatin | Take 20 mg by mouth | | 0 | | | Activ | | (ZOCOR) 20 mg tablet | nightly. | | | | | e | + + + +---------+------+------+-------+ | traMADol (ULTRAM) | Take 50 mg by mouth | | 0 | | | Activ | | 50 mg tablet | every 6 hours as | | | | | e | | | needed. | | | | | | + + + +---------+------+------+-------+ | cholecalciferol | Take 1,000 Units by | | 0 | | | Activ | | (VITAMIN D-3) 1,000 | mouth Daily. | | | | | e | | units tablet | | | | | | | + + + +---------+------+------+-------+ | ondansetron | As needed for | 2 | 0 | 10/1 | | Activ | | (ZOFRAN) 4 mg tablet | nausea; stop prep; | tablet | | 2/20 | | e | | | take 1 tablet; wait | | | 18 | | | | | 30 min then resume | | | | | | | | prep; repeat 1x prn | | | | | | + + + +---------+------+------+-------+ | clopidogrel | Take 1 tablet by | 90 | 3 | 08/1 | | Activ | | (PLAVIX) 75 mg | mouth Daily. | tablet | | 9/20 | | e | | tablet | | | | 19 | | | + + + +---------+------+------+-------+ | | Take 1 tablet by | 30 | 0 | 08/1 | | Activ | | HYDROcodone-acetamin | mouth every 6 hours | tablet | | /20 | | e | | ophen (NORCO) 5-325 | as needed for Pain | | | 19 | | | | mg per tablet | for up to 30 doses. | | | | | | + + + +---------+------+------+-------+ | carvedilol (COREG) | Take 0.5 tablets by | 60 | 0 | 08/1 | | Activ | | 3.125 mg tablet | mouth 2 times daily | tablet | | /20 | | e | | | (with breakfast & | | | 19 | | | | | dinner). Hold for | | | | | | | | Systolic blood | | | | | | | | pressure less than | | | | | | | | 160mmHG or heart | | | | | | | | rate less than 70 | | | | | | + + + +---------+------+------+-------+ | chlorthalidone 25 | Take 0.5 tablets by | 30 | 11 | 03/05 | | Activ | | mg tablet | mouth Daily. | tablet | | 03/24 | | e | | | | | | 19 | | | + + + +---------+------+------+-------+ Active Problems + + + | Problem | Noted Date | + + + | Carotid stenosis, asymptomatic, right | 03/22/2019 | + + + | SHELL Inhibitors - Daily Use | 06/04/2018 | + + + | Kidney disease, chronic, stage I (GFR over 89 ml/min) | 06/04/2018 | + + + + + | Overview: GFR 76 - 02/09/2009 | | GFR 80 - 03/08/2010 | | GFR 55 - 02/06/2018 | + + + + + | Obstructive sleep apnea on CPAP | 06/04/2018 | + + + + + | Overview: uses cpap | + + + + + | Hepatitis C antibody test positive | 06/04/2018 | + + + | History of cholecystectomy | 05/16/2018 | + + + | Arthropathy of shoulder region | 10/10/2007 | + + + | Rotator cuff syndrome of right shoulder | 10/10/2007 | + + + | Cardiomegaly | 02/26/2007 | + + + | Hyperlipidemia | 02/26/2007 | + + + | Arthralgia | 06/05/2005 | + + + | Hypertension | 11/24/2002 | + + + Encounters +--------+ + + + + | Date | Type | Specialty | Care Team | Description | +--------+ + + + + | 10/14/ | Office | Vascular Surgery | Ivone Soares DNP | Carotid stenosis, | | 2019 | Visit | | | bilateral (Primary | | | | | | Dx); S/P carotid | | | | | | endarterectomy; S/P | | | | | | arterial stent; | | | | | | History of tobacco | | | | | | use | +--------+ + + + + | 10/14/ | Hospital | Radiology | Ivone Soares DNP | Carotid stenosis, | | 2019 | Encounter | | | bilateral | +--------+ + + + + | 10/07/ | Hospital | Radiology | Ivone Soares DNP | No Show | | 2019 | Encounter | | | | +--------+ + + + + from Last 3 Months Immunizations + + + + | Name | Administration Dates | Next Due | + + + + | TDAP, (ADOL/ADULT) | 02/13/2007 | | + + + + Family History + + +------+ + | Medical History | Relation | Name | Comments | + + +------+ + | Prostate cancer | Brother | | | + + +------+ + | Liver cancer | Father | | | + + +------+ + | Heart disease | Sister | | | + + +------+ + | Thyroid disease | Sister | | | + + +------+ + | Thyroid disease | Sister | | | + + +------+ + | Malig hypertherm | Neg Hx | | | + + +------+ + + +------+ + + | Relation | Name | Status | Comments | + +------+ + + | Brother | | | Prostate Cancer | | | | (Age | | | | | 65) | | + +------+ + + | Father | | | heart failure | | | | (Age | | | | | 76) | | + +------+ + + | Mother | | | CHF | | | | (Age | | | | | 86) | | + +------+ + + | Sister | | | heart disease | + +------+ + + | Sister | | Alive | | + +------+ + + | Sister | | Alive | | + +------+ + + Social History + +-------+ +--------+------+ [...] recent travel history available. | + + Last Filed Vital Signs + + + + + | Vital Sign | Reading | Time Taken | Comments | + + + + + | Blood Pressure | 142/79 | 10/15/2019 10:47 AM | | | | | PDT | | + + + + + | Pulse | 77 | 10/15/2019 10:47 AM | | | | | PDT [...] + + + | Oxygen Saturation | 97% | 10/15/2019 10:47 AM | | | | | PDT [...] | | + + + + + Plan of Treatment + + + + + | Health Maintenance | Due Date | Last Done | Comments | + + + + + | Hepatitis C | | | | | Screening | 0 | | | + + + + + | Vaccine: Zoster (1 | | | | | of 2) | 0 | | | + + + + + | AAA Screening | | | | | | 5 | | | + + + + + | Vaccine: | | | | | Pneumococcal 65+ (1 | 5 | | | | of 2 - PCV13) | | | | + + + + + | Adult Annual | | | | | Wellness Visit | 8 | | | + + + + + | Statin Therapy | | | | | (optimal intensity) | 8 | | | + + + + + | Vaccine: Influenza | | | | | (Season Ended) | 0 | | | + + + + + | Colorectal Cancer | | 06/04/2018, 06/04/2018 | | | Screening | 3 | | | | (Colonoscopy) | | | | + + + + + | Vaccine: | | 07/23/2017, 02/13/2007 | | | Dtap/Tdap/Td (3 - | 7 | | | | Td) | | | | + + + + + Procedures + +--------+ + + + | Procedure Name | Priori | Date/Time | Associated Diagnosis | Comments | | | ty | | | | + +--------+ + + + | VAS CAROTID DUPLEX | Routin | 10/15/2019 | Carotid stenosis, | Results for this | | BILATERAL | e | 10:51 AM | bilateral | procedure are in the | | | | PDT | | results section. | + +--------+ + + + from Last 3 Months Results VAS Carotid Duplex Bilateral (10/15/2019 10:51 AM PDT) + + | Specimen | + + | | + + + + + | Impressions | Performed At | + + + | 1. Grade 2 (less than 50% diameter) stenosis bilaterally, unchanged. | [facility] | | 2. Widely patent right carotid endarterectomy and stent. 3. | | | Antegrade flow right vertebral artery. 4. Left vertebral not seen on | | | today's study. Internal Carotid Artery Diagnostic Grades | | | Grade 1: Stenosis = 01-50% / PSV <125 cm/sec / EDV (cm/s)<40 cm/sec | | | (mild plaque) Grade 2: Stenosis = 01-50% / PSV <125 cm/sec / EDV | | | (cm/s)<40 cm/sec (moderate plaque) Grade 3: Stenosis = 50-69% / PSV | | | >125 cm/sec / EDV (cm/s)>40 cm/sec Grade 4: Stenosis = 70-95% / PSV | | | >230 cm/sec / EDV (cm/s)>100 cm/sec Grade 5: Stenosis = 90-95% / PSV | | | <125 cm/sec / EDV (cm/s)<40 cm/sec Grade 6: Stenosis Occluded | | | Society of Radiologists in Ultrasound (SRU) criteria applied for | | | internal carotid stenosis determination. Signed by: | | | Alvaro Oro, Obed Sign Date/Time: 10/15/2019 11:14 AM | | + + + + + + | Narrative | Performed At | + + + | CAROTID DUPLEX ULTRASOUND CLINICAL INFORMATION: Carotid | [facility] | | artery stenosis. COMPARISON: VAS CAROTID DUPLEX BILATERAL | | | (04/09/2019); PROCEDURE: Evaluation of the extracranial carotid and | | | vertebral arteries with production of real-time images integrating | | | B-mode two-dimensional vascular structure, Doppler spectral analysis | | | and color-flow Doppler imaging. Carotid stenosis measurements | | | based on Society of Radiologists in Ultrasound consensus and | | | Strandness Criteria. FINDINGS: Peak systolic and diastolic | | | velocities measured in the common and internal carotid arteries. All | | | velocities recorded in cm/sec: Anterior Circulation: Right | | | CCA: 73/23 Prox ICA: 72/20 Mid ICA: 88/23 Distal ICA: 63/19 ECA: | | | 460/106 ICA/CCA: 1.0 Left CCA: 92/16 Prox ICA: 150 /51 Mid | | | ICA: 130/37 Distal ICA: 140/46 ECA: 167/19 ICA/CCA: 1.6 | | | Posterior Circulation: Right: Vertebral: 53/14 antegrade | | | Left: Vertebral: Not seen Calixto scale images: Right: Mild | | | intimal thickening of the common carotid artery. Widely patent | | | right carotid endarterectomy and stent. No significant plaques of | | | the endarterectomy and visualized right ICA. 70-95% diameter | | | stenosis right ECA origin, essentially unchanged. Less than 50% | | | diameter stenosis at the origin of the left ICA based on flow | | | velocities. Left: Intimal thickening of the left common carotid | | | artery. Nodular calcified plaque in the left carotid bulb and | | | origin of the internal greater than external carotid arteries. Less | | | than 50% diameter stenosis at the origin of the left ICA based on | | | flow velocities. | | + + + + + | Procedure Note | + + | Pastor, Rad Results In - 10/15/2019 11:17 AM PDT | | CAROTID DUPLEX ULTRASOUND | | | | CLINICAL INFORMATION: | | Carotid artery stenosis. | | | | COMPARISON: | | VAS CAROTID DUPLEX BILATERAL (04/09/2019); | | | | PROCEDURE: | | Evaluation of the extracranial carotid and vertebral arteries with | | production of real-time images integrating B-mode two-dimensional | | vascular structure, Doppler spectral analysis and color-flow Doppler | | imaging. | | | | Carotid stenosis measurements based on Society of Radiologists in | | Ultrasound consensus and Strandness Criteria. | | | | FINDINGS: | | Peak systolic and diastolic velocities measured in the common and | | internal carotid arteries. All velocities recorded in cm/sec: | | | | Anterior Circulation: | | | | Right | | CCA: 73/23 | | Prox ICA: 72/20 | | Mid ICA: 88/23 | | Distal ICA: 63/19 | | ECA: 460/106 | | ICA/CCA: 1.0 | | | | Left | | CCA: 92/16 | | Prox ICA: 150 /51 | | Mid ICA: 130/37 | | Distal ICA: 140/46 | | ECA: 167/19 | | ICA/CCA: 1.6 | | | | Posterior Circulation: | | | | Right: | | Vertebral: 53/14 antegrade | | | | Left: | | Vertebral: Not seen | | | | Calixto scale images: | | | | Right: Mild intimal thickening of the common carotid artery. Widely | | patent right carotid endarterectomy and stent. No significant plaques | | of the endarterectomy and visualized right ICA. 70-95% diameter | | stenosis right ECA origin, essentially unchanged. Less than 50% | | diameter stenosis at the origin of the left ICA based on flow | | velocities. | | | | Left: Intimal thickening of the left common carotid artery. Nodular | | calcified plaque in the left carotid bulb and origin of the internal | | greater than external carotid arteries. Less than 50% diameter | | stenosis at the origin of the left ICA based on flow velocities. | | | | IMPRESSION: | | 1. Grade 2 (less than 50% diameter) stenosis bilaterally, unchanged. | | 2. Widely patent right carotid endarterectomy and stent. | | 3. Antegrade flow right vertebral artery. | | 4. Left vertebral not seen on today's study. | | | | | | Internal [...] | | | | Signed by: Alvaro Oro Shawn | | Sign Date/Time: 10/15/2019 11:14 AM | + + + +---------+ + + | Performing | Address | City/State/Zipcode | Phone Number | | Organization | | | | + +---------+ + + | [facility] | | | | + +---------+ + + from Last 3 Months Insurance + +--------+ +--------+-------+---------+--------+ | Payer | Benefi | Subscriber | Effect | Phone | Address | Type | | | t Plan | ID | qiana | | | | | | / | | Dates | | | | | | Group | | | | | | + +--------+ +--------+-------+---------+--------+ | [employer] [place] [id number] | 03/08/20 | | | Indemn | | | COMMUN | | 18-Pre | | | ity | | | ITY | | sent | | | | | | CARE | | | | | | + +--------+ +--------+-------+---------+--------+ | [employer] [place] | [id number] | | | | Indemn | | | COMMUN | | 019-Pr | | | ity | | | ITY | | esent | | | | | | CARE | | | | | | + +--------+ +--------+-------+---------+--------+ + +--------+ +--------+ + + | Guarantor Name | Accoun | Relation to | Date | Phone | Billing Address | | | t Type | Patient | of | | | | | | | | | | + +--------+ +--------+ + + | Armando Dimas | Person | Self | [birth year] | [address] | | [place] | al/Fam | | 1950 | [phone] | [place] [id number] | | | [place]ong | | | 6 (Home) | | + +--------+ +--------+ + + | JudieArmando | Person | Self [birth year] | [address] | | [place] | al/Aj | | 1950 | [phone] | [place] [id number] | | | [place] | | | 6 (Home) | | + +--------+ +--------+ + + Advance Directives + + + + + | Type | Date Recorded | Patient | Explanation | | | | 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
--- OUTSIDE RECORDS SUMMARY | ~2020-01-04 | XMS | Encounter Summary ---
Demographics + + + | Address | [address] | | | [place] [address] | + + + | Home Phone | | + + + | Preferred Language | Unknown | + + + | Marital Status | Single | + + + | Latter-Day Affiliation | Unknown | + + + | Race | Unknown | + + + | Ethnic Group | Unknown | + + + Author + + + | Author | [facility] | | | and Jose Aana | + + + | Organization | [facility] | | | and Jose [...] Team Providers + +------+ + | Care Grade Checker Name | Role | Phone | + [...] | | | | VAS Carotid | [id number] | | | | | | Duplex | Phone: | | | | | | Bilateral | [phone] | | | | | | | Fax: | | | | | | | [phone] | | +--------+--------+ + + + + Reason for Visit + + + | Reason | Comments | + + + | Carotid Artery | | | Disease | | + + + Encounter Details +--------+---------+ + + + | Date | Type | Department | Care Team | Description | +--------+---------+ + + + | 04/09/ | Office | [facility] | Ivone Soares DNP | Carotid stenosis, | | 2019 | Visit | VASCULAR SURGERY | [address] | bilateral (Primary | | | | [address] | [place] | Dx); S/P carotid | | | | [place] | [id number] | endarterectomy; S/P | | | | [id number] | | arterial stent | | | | [phone] | | | +--------+---------+ + + + Social History [...] this encounter Last Filed Vital Signs + +---------+ + + | Vital Sign | Reading | Time Taken | Comments | + +---------+ + + | Blood Pressure | 125/79 | 04/09/2019 2:46 PM | | | | | PDT | | + +---------+ + + | Pulse | 59 | 04/09/2019 2:46 PM | | | | | PDT | | + +---------+ + + | Temperature | - | - | | + +---------+ + + | Respiratory Rate | - | - | | + +---------+ + + | Oxygen Saturation | 95% | 04/09/2019 2:46 PM | | | | | PDT | | + +---------+ + + | Inhaled Oxygen | - | - | | | Concentration | | | | + +---------+ + + | Weight | - | - | | + +---------+ + + | Height | - | - | | + +---------+ + + | Body Mass Index | - | - | | + +---------+ + + documented in this encounter Progress Mahogany Soares Si, DNP - 04/09/2019 3:30 PM [facility] [address] [place] [address] Office: [phone] DATE OF VISIT: 04/09/2019 PATIENT NAME: Armando Dimas : 1950; AGE: 69 y.o.; Sex:M PHONE NUMBER: ; ; PROVIDER: Ivone Soares DNP PRIMARY CARE / REFERRING PHYSICIAN: No ref. provider found / Paul Mobley, CURTAIN STRETCHER ASSEMBLER /[address] / [place] [address] The patient presents today for a Vascular Surgery Postoperative Visit. Due to high grade ri ght ICA stenosis, the patient is status post right CEA with ICA stenting x2, which was perfo rmed on 03/20/2019 at the [facility] Operating Room. Intraop finding: "Th e patient had large right neck with deep carotid artery and high bifurcation making dissecti on difficult. The right ICA was mildly aneurysmal. Plaque was very soft and would not enda rterectomize easily. After endarterectomy and closure, the patient had poor ICA signals by hand-held Doppler. Therefore, an on table arteriogram was done which revealed mid ICA disse ction. This dissection was stented with good angiographic results. The patient had good fi lling of right MCA at the end of the case." The patient is not having any pain. The patient denies fever, wound drainage, increasing redness, pus, increasing pain, increasing swellin g. Physical examination revealed right CEA surgical incision which is healing well without s igns of infection. He has been able to tolerate diet and reported no difficulty swallowing o r hoarseness. The patient currently reports no numbness in the upper or lower extremities, a nd no motor or sensory deficits. The patient reports no difficulty in cognitive ability, slu rred speech, or impaired verbal communication capability. The patient is taking aspirin, kelsi vix, and statin daily. VITAL SIGNS: BP 125/79 | Pulse 59 | SpO2 95% PHYSICAL EXAM: Constitutional: Well nourished, no signs of distress. Cardiovascular: Normal rate, regular rhythm. Pulmonary/Chest: No respiratory distress. No adventitious sounds. Musculoskeletal: Normal range of motion. Extremities: No edema, cyanosis or clubbing. Neurological: He is alert and oriented. No muscle weakness and normal gait. CNI-XII intact. VASCULAR: right CEA surgical incision which is healing well without signs of infection. Imagin04/09/2019 US carotid Widely patent right CEA and stent <50% left ICA stenosis Vertebral arteries are antegrade Assessment & Plan: Carotid artery stenosis & s/p right CEA - The patient doing well. Ultrasound result discuss ed with patient. Wound care instruction discussed with patient, monitor for signs of infecti on. Continue to monitor blood pressure daily. We have discussed signs and symptoms of TIA or CVA that would warrant urgent follow up with vascular clinic or nearest emergency facility such as difficulty speaking, swallowing, unilateral facial droop, unilateral arm or leg weak ness, or visual changes. Patient expresses understanding of these symptoms and to seek urge nt follow up should any occur. Return to vascular clinic in 6 month(s) for further follow-up with carotid duplex ultrasoun d surveillance study. Ivone Soares DNP documented in this encounte r Plan of Treatment Not on filedocumented as of this encounter Results VAS Carotid Duplex Bilateral (10/15/2019 10:51 [...] + + | Pastor, Rad Results In 10/15/2019 11:17 AM PDT | | CAROTID [...] | | | | Signed by: Alvaro Oro, Obed | | Sign Date/Time: 10/15/2019 11:14 AM [...] mention of cerebral infarction | + + | S/P carotid endarterectomy Other postprocedural status | + + | S/P arterial stent | + + documented in this encounter
--- OUTSIDE RECORDS SUMMARY | ~2020-01-04 | XMS | Encounter Summary ---
Demographics + + + | Address | [address] | | | [place] [address] | + + + | Home Phone | | + + + | Preferred Language | Unknown | + + + | Marital Status | Single | + + + | Presybeterian Affiliation | Unknown | + + + | Race | Unknown | + + + | Ethnic Group | Unknown | + + + Author + + + | Author | [facility] | | | and Jose Aana | + + + | Organization | [facility] | | | and [place] Aana [...] Team Providers + +------+ + | Care Environmental Resource Specialist Name | Role | Phone | + +------+ + | Paul Mobley | PCP | | + +------+ + Encounter Details +--------+ + + + + | Date | Type | Department | Care Team | Description | +--------+ + + + + | 05/23/ | Episode | [facility] | Filomena Goodson | | | 2018 | Changes | GASTROENTEROLOGY | L, RN | | | | | [address] [place] | | | | | | [address] | | | | | | [address] | | | | | | [phone] | | | +--------+ + + + [...]
--- OUTSIDE RECORDS SUMMARY | ~2020-01-04 | XMS | Encounter Summary ---
Demographics + + + | Address | [address] | | | [place] [address] | + + + | Home Phone | | + + + | Preferred Language | Unknown | + + + | Marital Status | Single | + + + | Orthodox Affiliation | Unknown | + + + | Race | Unknown | + + + | Ethnic Group | Unknown | + + + Author + + + | Author | [facility] | | | and Jose Aana | + + + | Organization | [facility] | | | and Jose Aana [...] Team Providers + +------+ + | Care Stem Maker Name | Role | Phone | + [...] | | | | | | | AR | | | | | | | COLONOSCOPY | | | | | | | FLX DX | | | | | | | W/COLLJ SPEC | | | | | | | WHEN PFRMD | | | | | | | AR | | | | | | | COLONOSCOPY | | | | | | | W/BIOPSY | | | | | | | SINGLE/MULTI | | | | | | | PLE AR | | | | | | | COLSC FLX | | | | | | | W/RMVL OF | | | | | | | TUMOR POLYP | | | | | | | LESION SNARE | | | | | | | TQ AR | | | | | | | [...] | | | | | [address] | [place], [place] | | | | | [place], [place] | [address] | | | | | [address] | | | | | | [phone] | Ehsan Clarke | | | | | | MD Fer [address] | | | | | | [address] [place], [place] | | | | | | [address] | | | | | | [phone] | | | | | | | [...] | 06/04/18944 by | | mónica | [id number] catheter system; | Celine Stokes, | Rita [...]
--- OUTSIDE RECORDS SUMMARY | ~2020-01-04 | XMS | Encounter Summary ---
Demographics + + + | Address | [address] | | | [place] [address] | + + + | Home Phone | | + + + | Preferred Language | Unknown | + + + | Marital Status | Single | + + + | Anabaptist Affiliation | Unknown | + + + | Race | Unknown | + + + | Ethnic Group | Unknown | + + + Author + + + | Author | [facility] | | | and Jose Aana | + + + | Organization | [facility] | | | and Jose [...] Team Providers + +------+ + | Care Cross Enterprise Integrator Name | Role | Phone | + [...] Soares, | | | | | | History of | DNP [address] | | | | | | tobacco use | [address] | | | | | | Procedures | [address] | | | | | | VAS AAA | [place], [place] | | | | | | Screening | [address] | | | | | | | Phone: | | | | | | | [phone] | | | | | | | Fax: | | | | | | | [phone] | | +--------+--------+ + + + + Diagnostic/Screening (Routine) +--------+--------+ + + + + [...] | | | | stenosis, | [address] | | | | | | bilateral | [address] | | | | | | S/P carotid | [facility] | | | | | | endarterecto | [address] | | | | | | my S/P | Phone: | | | | | | arterial | [phone] | | | | | | stent | Fax: | | | | | | Procedures | [phone] | | | | | | VAS Carotid | | | | | | | Duplex | | | | | | | Bilateral | | | +--------+--------+ + + + + Reason for Visit + + + | Reason | Comments | + + + | Carotid Artery | | | Disease | | + + + Encounter Details +--------+---------+ + + + | Date | Type | Department | Care Team | Description | +--------+---------+ + + + | 10/14/ | Office | [facility] | Ivone Soares, TORY | Carotid stenosis, | | 2019 | Visit | VASCULAR SURGERY | [address] | bilateral (Primary | | | | [address] | [address] [place] | Dx); S/P carotid | | | | [address] [place] | [address] | endarterectomy; S/P | | | | [address] | | arterial stent; | | | | [phone] | | History of tobacco | | | | | | use | +--------+---------+ + + + Social History [...] +---------+ + + | Blood Pressure | 142/79 | 10/15/2019 10:47 AM | | | | | PDT | | + +---------+ + + | Pulse | 77 | 10/15/2019 10:47 AM | | | | | PDT | | + +---------+ + + | Temperature | - | - | | + +---------+ + + | Respiratory Rate | - | - | | + +---------+ + + | Oxygen Saturation | 97% [...] + documented in this encounter Progress Notes Ivone Soares DNP - 10/15/2019 11:00 AM [facility] [address] [place] [address] Office: [phone] DATE OF VISIT: 10/15/2019 PATIENT NAME: Armando Dimas : 1950; AGE: 69 y.o.; Sex:M PHONE NUMBER: ; ; PROVIDER: Ivone Soares DNP PRIMARY CARE / REFERRING PHYSICIAN: Ivone Soares DNP / Paul Mobley, BINDING CUTTER / [address] / [place] [address] The patient presents today for a Vascular Surgery 6 months follow up Visit. Due to high grade right ICA stenosis, the patient is status post right CEA with ICA stentin g x2, which was performed on 03/20/2019 at the [facility] Operating Room. Intraop finding: "The patient had large right neck with deep carotid artery and high bifurc ation making dissection difficult. The right ICA was mildly aneurysmal. Plaque was very so ft and would not endarterectomize easily. After endarterectomy and closure, the patient had poor ICA signals by hand-held Doppler. Therefore, an on table arteriogram was done which r evealed mid ICA dissection. This dissection was stented with good angiographic results. Th e patient had good filling of right MCA at the end of the case." The patient currently repo rts no numbness in the upper or lower extremities, and no motor or sensory deficits. The pat ient reports no difficulty in cognitive ability, slurred speech, or impaired verbal communic ation capability. The patient is taking aspirin, plavix, and statin daily. He has been eatin g well and has lost about 30 Ibs. VITAL SIGNS: BP 142/79 | Pulse 77 | SpO2 97% PHYSICAL EXAM: Constitutional: Well nourished, no signs of distress. Cardiovascular: Normal rate, regular rhythm. Pulmonary/Chest: No respiratory distress. No adventitious sounds. Musculoskeletal: Normal range of motion. Extremities: No edema, cyanosis or clubbing. Neurological: He is alert and oriented. No muscle weakness and normal gait. CNI-XII intact. VASCULAR: palpable bilateral carotid pulses. Equal strength bilaterally Imaging: Vas Carotid Duplex Bilateral Result Date: 10/15/2019 CAROTID DUPLEX ULTRASOUND CLINICAL INFORMATION: Carotid artery stenosis. COMPARISON: VAS CA ROTID DUPLEX BILATERAL (04/09/2019); PROCEDURE: Evaluation of the extracranial carotid and milena tebral arteries with production of real-time images integrating B-mode two-dimensional vascu lar structure, Doppler spectral analysis and color-flow Doppler imaging. Carotid stenosis me asurements based on Society of Radiologists in Ultrasound consensus and [place] Criteria. FINDINGS: Peak systolic and diastolic velocities measured in the common and internal caroti d arteries. All velocities recorded in cm/sec: Anterior Circulation: Right CCA: 73/23 Prox I CA: 72/20 Mid ICA: 88/23 Distal ICA: 63/19 ECA: 460/106 ICA/CCA: 1.0 Left CCA: 92/16 Prox IC A: 150 /51 Mid ICA: 130/37 Distal ICA: 140/46 ECA: 167/19 ICA/CCA: 1.6 Posterior Circulation : Right: Vertebral: 53/14 antegrade Left: Vertebral: Not seen Calixto scale images: Right: Mild intimal thickening of the common carotid artery. Widely patent right carotid endarterectom y and stent. No significant plaques of the endarterectomy and visualized right ICA. 70-95% diameter stenosis right ECA origin, essentially unchanged. Less than 50% diameter stenosis at the origin of the left ICA based on flow velocities. Left: Intimal thickening of the lef t common carotid artery. Nodular calcified plaque in the left carotid bulb and origin of th e internal greater than external carotid arteries. Less than 50% diameter stenosis at the o rigin of the left ICA based on flow velocities. 1. Grade 2 (less than 50% diameter) stenosis bilaterally, unchanged. 2. Widely patent right carotid endarterectomy and stent. 3. Antegrade flow right vertebral artery. 4. Left vertebr al not seen on today's study. Internal Carotid Artery Diagnostic Grades Grade 1: Stenosis = 01-50% / PSV <125 cm/sec / EDV (cm/s)<40 cm/sec (mild plaque) Grade 2: Stenosis = 01-50% / P SV <125 cm/sec / EDV (cm/s)<40 cm/sec (moderate plaque) Grade 3: Stenosis = 50-69% / PSV >12 5 cm/sec / EDV (cm/s)>40 cm/sec Grade 4: Stenosis = 70-95% / PSV >230 cm/sec / EDV (cm/s)>10 0 cm/sec Grade 5: Stenosis = 90-95% / PSV <125 cm/sec / EDV (cm/s)<40 cm/sec Grade 6: [place] is [place] Society of Radiologists in Ultrasound (SRU) criteria applied for internal caroti d stenosis determination. Signed by: Alvaro Oro Shawn Sign Date/Time: 10/15/2019 11:14 AM Assessment & Plan: Carotid artery stenosis & s/p right CEA with ICA stenting - The patient doing well. Ultraso und result discussed with patient. Continue aspirin and plavix daily. We have discussed sig ns and symptoms of TIA or CVA that would warrant urgent follow up with vascular clinic or [facility] emergency facility such as difficulty speaking, swallowing, unilateral facial droop, u nilateral arm or leg weakness, or visual changes. Patient expresses understanding of these symptoms and to seek urgent follow up should any occur. Return to vascular clinic in 1 year further follow-up with carotid duplex ultrasound survei llance study. Due to patient's risk of arterial disease, male, age>65, hypertension, hyperlipidemia, and history of smoking more than 100 cigarettes in his lifetime, we recommend aorta ultrasound t o screen for AAA. Ivone Soares DNP documented in this encou nter Plan of Treatment + +---------+--------+ + + | Name | Type | Priori | Associated Diagnoses | Order Schedule | | | | ty | | | + +---------+--------+ + + | VAS Carotid Duplex | Imaging | Routin | Carotid stenosis, | Expected: 10/14/2020 | | Bilateral | | e | bilateral S/P | (Approximate), | | | | | carotid | Expires: 04/16/2021 | | | | | endarterectomy S/P | | | | | | arterial stent | | + +---------+--------+ + + | VAS AAA Screening | Imaging | Routin | History of tobacco | Expected: 10/14/2020 | | | | e | use | (Approximate), | | | | | | Expires: 04/16/2021 | + +---------+--------+ + + documented as of this encounter Visit Diagnoses + + | Diagnosis | + + | Carotid stenosis, bilateral - Primary Occlusion and stenosis of multiple and | | bilateral precerebral arteries without mention of cerebral infarction | + + | S/P carotid endarterectomy Other postprocedural status | + + | S/P arterial stent | + + | History of tobacco use Personal history of tobacco use, presenting hazards to health | + + documented in this encounter
--- OUTSIDE RECORDS SUMMARY | ~2020-01-04 | XMS | Encounter Summary ---
Demographics + + + | Address | [address] | | | [place] [address] | + + + | Home Phone | | + + + | Preferred Language | Unknown | + + + | Marital Status | Single | + + + | Alevism Affiliation | Unknown | + + + | Race | Unknown | + + + | Ethnic Group | Unknown | + + + Author + + + | Author | [facility] | | | and Jose Aana | + + + | Organization | [facility] | | | and Jose [...] Team Providers + +------+ + | Care Customer Care Manager Name | Role | Phone | + [...] [place] | | | | | | [address] | | | | | | [phone] | | | +--------+ + + + [...]
--- OUTSIDE RECORDS SUMMARY | ~2020-01-04 | XMS | Encounter Summary ---
Demographics + + + | Address | [address] | | | [place] [address] | + + + | Home Phone | | + + + | Preferred Language | Unknown | + + + | Marital Status | Single | + + + | Moravian Affiliation | Unknown | + + + | Race | Unknown | + + + | Ethnic Group | Unknown | + + + Author + + + | Author | [facility] | | | and Jose Aana | + + + | Organization | [facility] | | | and [...] Team Providers + +------+ + | Care Joint Runner Name | Role | Phone | + [...] | [address] | [place] [address] | | | | | [address] | | | | | | [phone] | | | +--------+ + + + [...] - 1.03 | EXTERNAL | | | [place], | | | LAB | | | [...]
--- OUTSIDE RECORDS SUMMARY | ~2020-01-04 | XMS | Clinical Summary ---
Demographics + + + | Address | [address] | | | [place] [address] | + + + | Home Phone | | + + + | Preferred Language | Unknown | + + + | Marital Status | Single | + + + | Temple Affiliation | Unknown | + + + | Race | Unknown | + + + | Ethnic Group | Unknown | + + + Author + + + | Author | [facility] | | | and Jose Aana | + + + | Organization | [facility] | | | and [...] Team Providers + +------+ + | Care Soda Room Operator Name | Role | Phone | [...] +--------+-------+---------+--------+ | [place] | [phone] | 03/08/20 | | | Indemn | | | COMMUN | | 18-Pre | | | ity | | | ITY | | sent | | | | | | CARE | | | | | | + +--------+ +--------+-------+---------+--------+ | [place] [place] | [place] | [phone] | | | | Indemn | | [...] | 1950 | [phone] | [place] [address] | | | hong | | | 6 (Home) | | + +--------+ +--------+ + + | JudieArmando | Person | Self | [birth year] | [address] | | [place] | al/Aj | | 1950 | [phone] | [place] [address] | | | hong | | | 6 (Home) | | + +--------+ +--------+ + + Advance Directives + + + + + | Type | Date Recorded | Patient | Explanation | | | | Geographic Information Scientist | | + + + + + | Power of | | | | | Business Performance Advisor | | | | + + + [...]
--- OUTSIDE RECORDS SUMMARY | ~2020-01-04 | XMS | Encounter Summary ---
Demographics + + + | Address | [address] | | | [place] [address] | + + + | Home Phone | | + + + | Preferred Language | Unknown | + + + | Marital Status | Single | + + + | Cheondoism Affiliation | Unknown | + + + | Race | Unknown | + + + | Ethnic Group | Unknown | + + + Author + + + | Author | [facility] | | | and Jose Aana | + + + | Organization | [facility] | | | and Jose [...] Team Providers + +------+ + | Care Rehab Liaison Name | Role | Phone | + [...] | | | | VAS AAA | [place], [place] | | | | | | Screening | [address] | | | | | | | Phone: | | | | | | | [phone] | | | | | | | Fax: | | | | | | | [phone] | | +--------+--------+ + + + + [...] | | | | S[facility]P carotid [facility] | | | | | | endarterecto | [address] | | | | | | my S/P | Phone: | | | | | | arterial | [phone] | | | | | | stent | Fax: | | | | | | Procedures | [phone] | | | | | | VAS [...] + + | 10/14/ | Office | [facility] | Ivone Soares, TORY | Carotid stenosis, | | 2019 | Visit | VASCULAR SURGERY | [address] | bilateral (Primary | | | | [address] | [address] [address] [place] | Dx); S/P carotid | | | | [address] [place] | [address] | endarterectomy; S/P | | | | [address] | | arterial stent; | | | | [phone] | | History of tobacco | | [...] Ivone Soares DNP - 10/15/2019 11:00 AM [facility] [address] [address] Office: [phone] DATE OF VISIT: 10/15/2019 PATIENT NAME: Armando Dimas : 1950; AGE: 69 y.o.; Sex:M PHONE NUMBER: ; ; PROVIDER: Ivone Soares DNP PRIMARY CARE / REFERRING PHYSICIAN: Ivone Soares DNP / Paul Mobley, SUSTAINABILITY CONSULTANT / [address]OR[address] / [place] [address] The patient presents today for a Vascular Surgery 6 months follow up Visit. Due to high grade right ICA stenosis, the patient is status post right CEA with ICA stentin g x2, which was performed on 03/20/2019 at the [facility] Operating Room. Intraop finding: "The patient had [...] urgent follow up with vascular clinic or [facility] emergency facility such as difficulty speaking, swallowing, [...]
--- OUTSIDE RECORDS SUMMARY | ~2020-01-04 | XMS | Encounter Summary ---
Demographics + + + | Address | [address] | | | [place] [address] | + + + | Home Phone | | + + + | Preferred Language | Unknown | + + + | Marital Status | Single | + + + | Rastafari Affiliation | Unknown | + + + | Race | Unknown | + + + | Ethnic Group | Unknown | + + + Author + + + | Author | [facility] | | | and Jose Aana | + + + | Organization | [facility] | | | and Jose [...] Team Providers + +------+ + | Care Vocational Director Name | Role | Phone | + [...] | | | | VAS Carotid | [address] | | | | | | Duplex | Phone: | | | | | | Bilateral | [phone] | | | | | | | Fax: | | | | | | | [phone] | | +--------+--------+ + + + + Reason for Visit +---------+ + | Reason | Comments | +---------+ + | Post Op | | +---------+ + Encounter Details +--------+ + + + + | Date | Type | Department | Care Team | Description | +--------+ + + + + | 03/23/ | Telephone | [facility] | Ivone Soares DNP | Post Op | | 2019 | | VASCULAR SURGERY | [address] | | | | | [address] | [place], [place] | | | | | [place], [place] | [address] | | | | | [address] | | | | | | [phone] | | | +--------+ + + + [...]
--- OUTSIDE RECORDS SUMMARY | ~2020-01-04 | XMS | Encounter Summary ---
Demographics + + + | Address | [address] | | | [place] [address] | + + + | Home Phone | | + + + | Preferred Language | Unknown | + + + | Marital Status | Single | + + + | Jew Affiliation | Unknown | + + + | Race | Unknown | + + + | Ethnic Group | Unknown | + + + Author + + + | Author | [facility] | | | and Jose Aana | + + + | Organization | [facility] | | | and Jose Aana [...] Team Providers + +------+ + | Care Mandarin Teacher Name | Role | Phone | + +------+ + | Paul Mobley | PCP | | + +------+ + Encounter Details +--------+ + + + + | Date | Type | Department | Care Team | Description | +--------+ + + + + | 10/07/ | Hospital | [facility] | Ivone Soares, TORY | No Show | | 2020 | Encounter | VASCULAR SURGERY | [address] | | | | | ULTRASOUND [address] | [address], [place] | | | | | [address] | [address] | | | | | [place], [place] | | | | | | [address] | | | | | | [phone] | | | +--------+ + + + [...]
--- OUTSIDE RECORDS SUMMARY | ~2020-01-04 | XMS | Clinical Summary ---
Demographics + + + | Address | [address] | | | [place] [address] | + + + | Home Phone | | + + + | Preferred Language | Unknown | + + + | Marital Status | Single | + + + | Oriental Orthodox Affiliation | Unknown | + + + | Race | Unknown | + + + | Ethnic Group | Unknown | + + + Author + + + | Author | [facility] (Historical as of | | | 03-21-19) | + + + | Organization | [facility] (Historical as of | | | 03-21-19) | + + + | Address | Unknown | + + + | Phone | Unavailable | + + + Support +---------+ +---------+ + | Name | Relationship | Address | Phone | +---------+ +---------+ + | No,Name | ECON | Unknown | | +---------+ +---------+ + Care Team Providers + +------+ + | Care Manager Sql Name | Role | Phone | + +------+ + | [facility] | PP | | | Jeramy [...] + + | [place] | [place] | [phone] | | [phone] [employer] [address] | | ADMINISTRATION | CHOICE | | | [phone] | | | | | | [address] [place], [place] | | | | | | | [address] | + +--------+ +------+ + + | [place] | [place] | [id number] | | [phone] | [employer] [address] | | ADMINISTRATION | [place] | | | [phone] | | | [address] | | | | [address] [place], [place] | | | STRATI | | | | [address] | | | ON | | | [...] ns | | 1950 | [phone]- | [place] [address] | | | Admini | | | [address]686 | | | | strati | | | | | | | on | | | | | + +--------+ +--------+ + + | ARMANDO DIMAS | Person | Self | [birth year] | Home: | [address] | | | al/Fam | | 1950 | +96- | [place] [address] | | | hong | | | [address] | | + +--------+ +--------+ + +
--- OUTSIDE RECORDS SUMMARY | ~2020-01-04 | XMS | Encounter Summary ---
Demographics + + + | Address | [address] | | | [place] [address] | + + + | Home Phone | | + + + | Preferred Language | Unknown | + + + | Marital Status | Single | + + + | Anglican Affiliation | Unknown | + + + | Race | Unknown | + + + | Ethnic Group | Unknown | + + + Author + + + | Author | [facility] | | | and Jose Aana | + + + | Organization | [facility] | | | and [...] Team Providers + +------+ + | Care Dip Tanker Name | Role | Phone | + [...] | [address] | [place] [address] | | | | | [address] | [phone] | | | | | [phone] | | | +--------+ + + + [...]
--- OUTSIDE RECORDS SUMMARY | ~2020-01-04 | XMS | Encounter Summary ---
Demographics + + + | Address | [address] | | | [place] [address] | + + + | Home Phone | | + + + | Preferred Language | Unknown | + + + | Marital Status | Single | + + + | Temple Affiliation | Unknown | + + + | Race | Unknown | + + + | Ethnic Group | Unknown | + + + Author + + + | Author | [facility] | | | and Jose Aana | + + + | Organization | [facility] | | | and Jose [...] Team Providers + +------+ + | Care Freight Elevator Operator Name | Role | Phone | [...] | | | | VAS Carotid | [address] | | | | | | Duplex | Phone: | | | | | | Bilateral | [phone] | | | | | | | Fax: | | | | | | | [phone] | | +--------+--------+ + + + + Encounter Details +--------+ + + + + | Date | Type | Department | Care Team | Description | +--------+ + + + + | 10/14/ | Hospital | [facility] | Ivone Soares, TORY | Carotid stenosis, | | 2019 | Encounter | VASCULAR SURGERY | [address] | bilateral | | | | ULTRASOUND [address] | [address] [place] | | | | | [address] | [address] | | | | | [place] | | | | | | [address] | | | | | | [phone] | | | +--------+ + + + [...] tablet by | 30 | 0 | 08//20 | | | HYDROcodone-acetamin | mouth every [...] needed for | 2 | 0 | 05/16/20 | | | (ZOFRAN) 4 mg tablet [...] determination. Signed by: | | | Alvaro Oro Shawn Sign Date/Time: 10/15/2019 11:14 AM | | [...]
--- OUTSIDE RECORDS SUMMARY | ~2020-01-04 | XMS | Encounter Summary ---
Demographics + + + | Address | [address] | | | [place] [address] | + + + | Home Phone | | + + + | Preferred Language | Unknown | + + + | Marital Status | Single | + + + | Rastafarian Affiliation | Unknown | + + + | Race | Unknown | + + + | Ethnic Group | Unknown | + + + Author + + + | Author | [facility] | | | and Jose Aana | + + + | Organization | [facility] | | | and Jose [...] Team Providers + +------+ + | Care Felt Checker Name | Role | Phone | [...] | | | | VAS Carotid | [address] | | | | | | Duplex | Phone: | | | | | | Bilateral | [phone] | | | | | | | Fax: | | | | | | | [phone] | | +--------+--------+ + + + + Reason for Visit + + + | Reason | Comments | + + + | Carotid Artery | | | Disease | | + + + Encounter Details +--------+---------+ + + + | Date | Type | Department | Care Team | Description | +--------+---------+ + + + | 04/09/ | Office | [facility] | Ivone Soares DNP | Carotid stenosis, | | 2019 | Visit | VASCULAR SURGERY | [address] | bilateral (Primary | | | | [address] | [place] | Dx); S/P carotid | | | | [place] | [address] | endarterectomy; S/P | | | | [address] | | arterial stent | | | | [phone] | | | +--------+---------+ + + + [...] Soares Si, DNP - 04/09/2019 3:[address] [facility] [address] [place] [address] Office: [phone] DATE OF VISIT: 04/09/2019 PATIENT NAME: Armando Dimas : 1950; AGE: 69 y.o.; Sex:M PHONE NUMBER: ; ; PROVIDER: Ivone Soares DNP PRIMARY CARE / REFERRING PHYSICIAN: No ref. provider found / Paul Mobley, PAINTER AIRBRUSH /[address] / [place] [address] The patient presents today for a Vascular Surgery Postoperative Visit. Due to high grade ri ght ICA stenosis, the patient is status post right CEA with ICA stenting x2, which was perfo rmed on 03/20/2019 at the [facility] Operating Room. Intraop finding: "Th e patient [...]
--- OUTSIDE RECORDS SUMMARY | ~2020-01-04 | XMS | Encounter Summary ---
Demographics + + + | Address | [address] | | | [place] [address] | + + + | Home Phone | | + + + | Preferred Language | Unknown | + + + | Marital Status | Single | + + + | Jehovah'S Witness Affiliation | Unknown | + + + | Race | Unknown | + + + | Ethnic Group | Unknown | + + + Author + + + | Author | [facility] | | | and Jose Aana | + + + | Organization | [facility] | | | and Jose [...] Team Providers + +------+ + | Care Toy Assembler Wood Name | Role | Phone | + [...] | | | | | | | MI | | | | | | | COLONOSCOPY | | | | | | | FLX DX | | | | | | | W/COLLJ SPEC | | | | | | | WHEN PFRMD | | | | | | | MI | | | | | | | COLONOSCOPY | | | | | | | W/BIOPSY | | | | | | | SINGLE/MULTI | | | | | | | PLE MI | | | | | | | COLSC FLX | | | | | | | W/RMVL OF | | | | | | | TUMOR POLYP | | | | | | | LESION SNARE | | | | | | | TQ MI | | | | | | | [...] Description | +--------+---------+ + + + | 10/31/ | Surgery | [facility] | Gavin Silva | COLONOSCOPY | | 2018 | | MED [facility] | MD Conrado [address] | | | | [address] | [address] [place] | | | | | [place], [place] | [place] [address] | | | | | [address] | [phone] | | | | | [phone] | | | +--------+---------+ + + + [...] + + + | Blood Pressure | 129/102 | 06/04/2018 9:30 AM | | | | | PDT | | + + + + + | Pulse | 71 | 06/04/2018 9:30 AM | | | | | PDT | | + + + + + | Temperature | 36.5 C (97.7 F) | 06/04/2018 9:14 AM | | | | | PDT | | + + + + + | Respiratory Rate | 18 | 06/04/2018 9:30 AM | | | | | PDT | | + + + + + | Oxygen Saturation | 98% | 06/04/2018 9:30 AM | | | | | PDT | | + + + + + | Inhaled Oxygen | - | - | | | Concentration | | | | + + + + + | Weight | 108 kg (238 lb 1.6 | 06/04/2018 7:33 AM | | | | oz) | PDT | | + + + + + | Height | 188 cm (6' 2") | 06/04/2018 7:33 AM | | | | | PDT | | + + + + + | Body Mass Index | 30.57 | 06/04/2018 7:33 AM | | | | | PDT | | + + + + + documented in this encounter Discharge Instructions Instructions Rita Ulloa RN - 06/04/2018 Understanding Colon and Rectal Polyps The colon (also called the large intestine) is a muscular tube that forms the last part of the digestive tract. It absorbs water and stores food waste. The colon is about 4 to 6 feet long. The rectum is the last 6 inches of the colon. The colon and rectum have a smooth linin g composed of millions of cells. Changes in these cells can lead to growths in the colon alex t can become cancerous and should be removed. Multiple tests are available to screen for col on cancer, but the colonoscopy is the most recommended test. During colonoscopy, these polyp s can be removed. How often you need this test depends on many things including your conditi on, your family history, symptoms, and what the findings were at the previous colonoscopy. When the colon lining changes Changes that happen in the cells that line the colon or rectum can lead to growths called p olyps. Over a period of years, polyps can turn cancerous. Removing polyps early may prevent cancer from ever forming. Polyps Polyps are fleshy clumps of tissue that form on the lining of the colon or rectum. Small po lyps are usually benign (not cancerous). However, over time, cells in a polyp can change and become cancerous. Certain types of polyps known as adenomatous polyps are premalignant. The risk for invasive cancer increases with the size of the polyp and certain cell and gene fea tures. This means that they can become cancerous if they're not removed.Hyperplastic polyp s are benign. They can grow quite large and not turn cancerous. Cancer Almost all colorectal cancers start when polyp cells begin growing abnormally. As a cancero us tumor grows, it may involve more and more of the colon or rectum. In time, cancer can als o grow beyond the colon or rectum and spread to nearby organs or to glands called lymph node s. The cells can also travel to other parts of the body. This is known as metastasis. The ea rlier a cancerous tumor is removed, the better the chance of preventing its spread. Date Last Reviewed: 03/05/[id number] [employer]. [address] [place] [address], [place] [id number]. All righ ts reserved. This information is not intended as a substitute for professional medical care. Always follow your healthcare professional's instructions. documented in this encounter Medications at Time of [...] | + +--------+ + + + | COLONOSCOPY | | 06/04/2018 | Special screening | | | | | 8:47 AM | for malignant | | | | | PDT | neoplasms, colon | | | | | | (Z12.11), | | | | | | Obstructive sleep | | | | | | apnea (G47.33), | | | | | | Advanced age (R54) | | + +--------+ + + + | COLONOSCOPY | Routin | 06/04/2018 | | Results for this | | | e | 8:39 AM | | procedure are in the | | | | PDT | | results section. | + +--------+ + + + | SURGICAL PATHOLOGY | Routin | 06/04/2018 | | Results for this | | EXAM | e | 12:00 AM | | procedure are in the | | | | PDT | | results section. | + +--------+ + + + documented in this encounter Results COLONOSCOPY (06/04/2018 8:39 AM PDT) + + | Specimen | + + | | + + + + ---+ | Narrative | Performed At | + + ---+ | | [facility] | | GastroenterologyPatient Name: Armando Valdez Date: | PROVATION | | 06/04/2018 8:39 AMMRN: [id number] #: [id number] of : | | | 1950Admit Type: AmbulatoryAge: 68Room: [facility] 02Gender: MaleNote | | | Status: FinalizedAttending MD: GAVIN SILVA , [facility]rocedure: | | | ColonoscopyIndications: Screening for colorectal | | | malignant neoplasmProviders: GAVIN SILVA MD, | | | Isabel Michel RN, Cata Jovel, | | | Knockout Worker, Bill Harris MD (Anesthesia Staff)Referring MD: | | | Paul Mobley (Referring MD)Medicines: Monitored | | | Anesthesia CareComplications: No immediate | | | complications.Procedure: Pre-Anesthesia Assessment: - | | | Prior to the procedure, a History and Physical was performed, and | | | patient medications and allergies were reviewed. The patient is | | | competent. The risks and benefits of the procedure and the | | | sedation options and risks were discussed with the patient. All | | | questions were answered and informed consent was obtained. | | | Patient identification and proposed procedure were verified by | | | the physician, the nurse and the anesthesiologist in the | | | pre-procedure area in the procedure room. Mental Status | | | Examination: alert and oriented. Airway Examination: Mallampati | | | Class II (the uvula but not tonsillar pillars visualized). | | | Respiratory Examination: clear to auscultation. CV Examination: | | | normal. Prophylactic Antibiotics: The patient does not require | | | prophylactic antibiotics. Prior Anticoagulants: The patient | | | has taken no previous anticoagulant or antiplatelet agents. ASA | | | Grade Assessment: III - A patient with severe systemic | | | disease. After reviewing the risks and benefits, the patient | | | was deemed in satisfactory condition to undergo the procedure. The | | | anesthesia plan was to use monitored anesthesia care (MAC). | | | Immediately prior to administration of medications, the patient | | | was re-assessed for adequacy to receive sedatives. The heart | | | rate, respiratory rate, oxygen saturations, blood pressure, | | | adequacy of pulmonary ventilation, and response to care were | | | monitored throughout the procedure. The physical status of the | | | patient was re-assessed after the procedure. After I obtained | | | informed consent, the scope was passed under direct vision. | | | Throughout the procedure, the patient's blood pressure, pulse, | | | and oxygen saturations were monitored continuously. The Colonoscope | | | was introduced through the anus and advanced to the cecum, | | | identified by appendiceal orifice and ileocecal valve. The | | | colonoscopy was performed without difficulty. The patient | | | tolerated the procedure well. The quality of the bowel | | | preparation was evaluated using the BBPS ([place] Bowel | | | Preparation Scale) with scores of: Right Colon = 3, Transverse | | | Colon = 3 and Left Colon = 3 (entire mucosa seen well with no residual | | | staining, small fragments of stool or opaque liquid). The | | | total BBPS score equals 9.Findings: The perianal and | | | digital rectal examinations were normal. A 1 mm polyp was found | | | in the ascending colon. The polyp was sessile. The polyp was | | | removed with a cold biopsy forceps. Resection and retrieval | | | were complete. A few small-mouthed diverticula were found in the | | | sigmoid colon, descending colon and ascending colon. The | | | exam was otherwise without abnormality. The retroflexed view of | | | the distal rectum and anal verge was normal and showed no anal | | | or rectal abnormalities.Impression: - One 1 mm polyp in the | | | ascending colon, removed with a cold biopsy forceps. Resected | | | and retrieved. - Diverticulosis in the sigmoid colon, in the | | | descending colon and in the ascending colon. - The | | | examination was otherwise normal. - The distal rectum and anal | | | verge are normal on retroflexion view.Recommendation: - The | | | patient will be observed post-procedure, until all discharge | | | criteria are met. - Await pathology results. - Repeat | | | colonoscopy in 5-10 years for surveillance based on pathology | | | results. - The findings and recommendations were discussed with | | | the patient.GAVIN SILVA MD06/04/2018 9:12:25 AMThis report has | | | been signed electronically.Number of Addenda: 0Note Initiated On: | | | 06/04/2018 8:39 AMScope Withdrawal Time: 0 hours 9 minutes 6 seconds | | | Total Procedure Duration: 0 hours 16 minutes 33 seconds Scope In: | | | 8:53:52 AMScope Out: 9:10:25 AM [facility] | | | [place], [address] [place] [id number] | | | - The patient will be observed post-procedure, until all discharge | | | criteria are met. | | | - Await pathology results. | | | - Repeat colonoscopy in 5-10 years for surveillance based on pathology | | | results. | | | - The findings and recommendations were discussed with the patient. | | |GAVIN SILVA MD | | |06/04/2018 9:12:25 AM | | |This report has been signed electronically. | | |Number of Addenda: 0 | | |Note Initiated On: 06/04/2018 8:39 AM | | |Scope Withdrawal Time: 0 hours 9 minutes 6 seconds | | |Total Procedure Duration: 0 hours 16 minutes 33 seconds | | |Scope In: 8:53:52 AM | | |Scope Out: 9:10:25 AM | | | [facility], [address] [place] [address] | | | [address] | | + + ---+ + +---------+ + + | Performing | Address | City/State/Zipcode | Phone Number | | Organization | | | | + +---------+ + + | [facility] | | | | + +---------+ + + Surgical Pathology Exam (06/04/2018 12:00 AM PDT) + + | Specimen | + + | | + + + + + | Narrative | Performed At | + + + | SPECIMEN(S): A ASCENDING COLON SPECIMEN SOURCE: Shabana ARAMBULA | [place] [facility] | | COLON CLINICAL HISTORY: Z12.11 (encounter for screening for | [facility] | | malignant neoplasm of colon); G47.33 (obstructive sleep apnea [adult] | | | [pediatric]); R54 (age-related physical debility) MICROSCOPIC | | | DESCRIPTION: Histologic sections of all submitted blocks are examined | | | by light microscopy. These findings, together with the gross | | | examination, support the pathologic diagnosis. FINAL PATHOLOGIC | | | DIAGNOSIS: Ascending colon, biopsy: - Tubular adenoma (one | | | fragment). JVR:[facility]:C2NR GROSS DESCRIPTION: The specimen | | | received in formalin and labeled as "Judie Armando" and designated | | | as "ascending colon biopsy" per the requisition, consists of one | | | pink-miranda tissue fragment which measures 0.3 cm in diameter. The | | | entire specimen is submitted in a single cassette, (A1). js:AMB:ljb | | | PERFORMING LABORATORY: The technical component was performed by | | | [facility] [address] (Medical | | | Director: Monserrat Pope MD; IA# [id number]). Professional | | | interpretation was performed by [facility] | | | [facility], [address] [place] [address] | | | [id number] (Program Developer: Nitesh Trinidad M.D.). Diagnostician: | | | Nitesh Trinidad MD Pathologist Electronically Signed 06/05/2018 | | | | | + + + + +---------+ + + | Performing | Address | City/State/Zipcode | Phone Number | | Organization | | | | + +---------+ + + | [place] [facility] | | | | | [facility] | | | | + +---------+ + [...] +---------+ +--------+-------+---+ +---+---+ | | | +---+---+ documented in this encounter
--- OUTSIDE RECORDS SUMMARY | ~2020-01-04 | XMS | Encounter Summary ---
Demographics + + + | Address | [address] | | | [place] [address] | + + + | Home Phone | | + + + | Preferred Language | Unknown | + + + | Marital Status | Single | + + + | Mu-Ism Affiliation | Unknown | + + + | Race | Unknown | + + + | Ethnic Group | Unknown | + + + Author + + + | Author | [facility] | | | and Jose Aana | + + + | Organization | [facility] | | | and Jose [...] Team Providers + +------+ + | Care Kitchen Runner Name | Role | Phone | [...] | | | | VAS Carotid | [id number] | | | | | | Duplex | Phone: | | | | | | Bilateral | [phone] | | | | | | | Fax: | | | | | | | [phone] | | +--------+--------+ + + + + Encounter Details +--------+ + + + + | Date | Type | Department | Care Team | Description | +--------+ + + + + | 10/14/ | Hospital | [facility] | Ivone Soares, TORY | Carotid stenosis, | | 2019 | Encounter | VASCULAR SURGERY | [address] | bilateral | | | | ULTRASOUND [address] | [address] [place] | | | | | [address] | [address] | | | | | [place] | | | | | | [address] | | | | | | [phone] | | | +--------+ + + + [...]
--- OUTSIDE RECORDS SUMMARY | ~2020-01-04 | XMS | Encounter Summary ---
Demographics + + + | Address | [address] | | | [place] [address] | + + + | Home Phone | | + + + | Preferred Language | Unknown | + + + | Marital Status | Single | + + + | Bahai Affiliation | Unknown | + + + | Race | Unknown | + + + | Ethnic Group | Unknown | + + + Author + + + | Author | [facility] | | | and Jose Aana | + + + | Organization | [facility] | | | and Jose [...] Team Providers + +------+ + | Care Physical Instructor Name | Role | Phone | + [...] + + | 03/20/ | Hospital | [facility] | Costa Velasco MD | | | 2019 - | Encounter | [facility]ENTER [facility] | [address] | | | | | [address] | [place], [place] | | | 03/22/ | | [place], [place] | [address] | | | 2019 | | [address] | [phone] | | | | | [phone] | | | +--------+ + + + [...] Physician Discharge Summary Patient ID: Armando Dimas [id number] y.o. 1950 Admit date: 03/20/2019 Discharge date and time: No discharge date for patient encounter. Admitting Physician: Costa Velasco MD Discharge Physician: Colette Martin Admission [...] Care Everywhere.Carotid Endarte rectomy, Discharge Instructions for (Prydeinig)Carotid Artery Stenting, Discharge Instructions for (Prydeinig)documented in this encounter Medications at Time of [...] less than 160mmHg. Will provide Rx for [place] N coreg at home for systolic >160mmHg. [...] K/uL | LABORATORY | | | | [place], | | | | | | [place] [address] | | | | + + + + + + + + | Specimen | + + | Blood | + + + + + + + | Performing | Address | City/State/Zipcode | Phone Number | | Organization | | | | + + + + + | [facility] | [address] | [place] [address] | [phone] | + + + + + Basic [...] | >60Comment: GFR <60: | >60 | [facility] | | | GFR | CHRONIC KIDNEY [...] W | | | | | | [facility], | | | | | | [place] [address] | | | | + + + + + + + + | Specimen | + + | Blood | + + + + + + + | Performing | Address | City/State/Zipcode | Phone Number | | Organization | | | | + + + + + | [facility] | [address] | [place] [address] | [phone] | + + + + + Basic [...] | >60Comment: GFR <60: | >60 | [facility] | | | GFR | CHRONIC KIDNEY [...] | | | | | | MDRD [facility] traceable | | | | | | equation.Testing | | | | | | performed at [facility];[address] | | | | | | [facility];[place], [place] | | | | | | [address] | | | | + + + + + + + + | Specimen | + + | Blood | + + + + + + + | Performing | Address | City/State/Zipcode | Phone Number | | Organization | | | | + + + + + | [facility] | [address] | [place] [address] | [phone] | + + + + + CBC [...] 0.05Comment: Testing | 0.00 - 0.10 | [facility] | | | Absolute | performed at [facility];[address] | K[address] | LABORATORY | | | | [address];[place] | | | | | | [address] | | | | + + + + + + + + | Specimen | + + | Blood | + + + + + + + | Performing | Address | City/State/Zipcode | Phone Number | | Organization | | | | + + + + + | [facility] | [address] | [place] [address] | [phone] | + + + + + documented [...]
--- OUTSIDE RECORDS SUMMARY | ~2020-01-04 | XMS | Encounter Summary ---
Demographics + + + | Address | [address] | | | [place] [address] | + + + | Home Phone | | + + + | Preferred Language | Unknown | + + + | Marital Status | Single | + + + | Mormon Affiliation | Unknown | + + + | Race | Unknown | + + + | Ethnic Group | Unknown | + + + Author + + + | Author | [facility] | | | and Jose Aana | + + + | Organization | [facility] | | | and [...] Team Providers + +------+ + | Care In Home Baby Sitter Name | Role | Phone | + +------+ + | Paul Mobley | PCP | | + +------+ + Encounter Details +--------+ + + + + | Date | Type | Department | Care Team | Description | +--------+ + + + + | 03/05/ | Hospital | [facility] | Conversion | | | 2019 | Encounter | CENTER [facility] | Transaction, | | | | | CLINIC [address] | Provider Unknown | | | | | [place], [place] | [phone] | | | | | [address] | | | | | | [phone] | Costa Velasco MD [address] | | | | | | [address] | | | | | | [facility] [place] | | | | | | [address] | | | | | | [phone] | | | | | | | [...] | | | Screen | performed at [facility];[address] | | LAB | | | | [address];[place], [place] | | | | | | [address] | | | | + + + [...] | | | Basophils | performed at [facility], [address] | K[address]uL | LAB | | | | [address], | | | | | | [place] [address] | | | | + + + [...] W | | | | | | [facility], | | | | | | [place] [address] | | | | + + + [...] + + | Historically converted procedure from [facility] | EXTERNAL LAB | + + + + +---------+ + + | Performing | Address | City/State/Zipcode | Phone Number | | Organization | | | | + +---------+ + + | EXTERNAL LAB | | | | + +---------+ + + documented in this encounter Visit Diagnoses Not on filedocumented in this encounter"
--- OUTSIDE RECORDS SUMMARY | ~2020-01-04 | XMS | Encounter Summary ---
Demographics + + + | Address | [address] | | | [place] [address] | + + + | Home Phone | | + + + | Preferred Language | Unknown | + + + | Marital Status | Single | + + + | Hoahaoism Affiliation | Unknown | + + + | Race | Unknown | + + + | Ethnic Group | Unknown | + + + Author + + + | Author | [facility] | | | and Jose Aana | + + + | Organization | [facility] | | | and Jose [...] Team Providers + +------+ + | Care Bottle Line Worker Name | Role | Phone | + [...] | | | | | | | [place] | | | | | | | COLONOSCOPY | | | | | | | FLX DX | | | | | | | W/COLLJ SPEC | | | | | | | WHEN PFRMD | | | | | | | [place] | | | | | | | COLONOSCOPY | | | | | | | W/BIOPSY | | | | | | | SINGLE/MULTI | | | | | | | PLE [place] | | | | | | | COLSC FLX | | | | | | | W/RMVL OF | | | | | | | TUMOR POLYP | | | | | | | LESION SNARE | | | | | | | TQ [place] | | | | | | | [...] | | | | | [address] | [address] [place] | | | | | [place], [place] | [place] [address] | | | | | [address] | [phone] | | | | | [phone] | | | +--------+---------+ + + + [...] of preventing its spread. Date Last Reviewed: 03/05/201619995404-5355 [employer]. [address] [place] [address], [place] [id number]. All righ ts reserved. This information is [...] | [facility] | | 06/04/2018 8:39 AMMRN: [id number] #: [id number] of : | | | 1950Admit Type: AmbulatoryAge: 68[facility] 02Gender: MaleNote | | | Status: FinalizedAttending MD: GAVIN SILVA , [facility]Arocedure: | | | ColonoscopyIndications: Screening for colorectal | | | malignant neoplasmProviders: GAVIN SILVA MD, | | | Isabel Michel RN, Cata Jovel, | | | Director Software Development, Bill Harris MD (Anesthesia Staff)Referring MD: | [...] | preparation was evaluated using the BBPS ([place] Bowel | | | Preparation Scale) with [...] were discussed with | | | the patient.GAVNI SILVA MD06/04/2018 9:12:25 AMThis report has | | | been signed electronically.Number of Addenda: 0Note Initiated On: | | | 06/04/2018 8:39 AMScope Withdrawal Time: 0 hours 9 minutes 6 seconds | | | Total Procedure Duration: 0 hours 16 minutes 33 seconds Scope In: | | | 8:53:52 AMScope Out: 9:10:25 AM [facility] | | | [place], [address] [place] [address] | | | - The patient will [...] |Scope Out: 9:10:25 AM | | | [facility], [address] [place] [address] | | | [address] | | + + ---+ + +---------+ [...] ASCENDING COLON SPECIMEN SOURCE: Shabana ARAMBULA | [place] [facility] | | COLON CLINICAL HISTORY: Z12.11 [...] Tubular adenoma (one | | | fragment). JVR:[facility]:C2NR GROSS DESCRIPTION: The specimen | | | [...] component was performed by | | | [email or web address] [address] (Medical | | | Director: Monserrat Pope MD; IA# [id number]). Professional | | | interpretation was performed by [email or web address] | | | [facility], [address] [place] [address] | | | [id number] (Ruby Developer: Nitesh Trinidad M.D.). Diagnostician: | | [...]
--- OUTSIDE RECORDS SUMMARY | ~2020-01-04 | XMS | Encounter Summary ---
Demographics + + + | Address | [address] | | | [place] [address] | + + + | Home Phone | | + + + | Preferred Language | Unknown | + + + | Marital Status | Single | + + + | Anabaptist Affiliation | Unknown | + + + | Race | Unknown | + + + | Ethnic Group | Unknown | + + + Author + + + | Author | [facility] | | | and Jose Aana | + + + | Organization | [facility] | | | [...] Team Providers + +------+ + | Care E Learning Specialist Name | Role | Phone | [...] | | | | | | | [place] | | | | | | | COLONOSCOPY | | | | | | | FLX DX | | | | | | | W/COLLJ SPEC | | | | | | | WHEN PFRMD | | | | | | | [place] | | | | | | | COLONOSCOPY | | | | | | | W/BIOPSY | | | | | | | SINGLE/MULTI | | | | | | | PLE [place] | | | | | | | COLSC FLX | | | | | | | W/RMVL OF | | | | | | | TUMOR POLYP | | | | | | | LESION SNARE | | | | | | | TQ [place] | | | | | | | [...] + + + + | 06/04/ | Hospital | [facility] | Gavin Silva | Special screening | | 2018 | Encounter | [facility] OP | MD Conr[address] | for malignant | | | | [address] | [address] [place] | neoplasms, colon | | | | [place], [place] | [place] [address] | | | | | [address] | [phone] | | | | | [phone] | | | +--------+ + + + [...] of preventing its spread. Date Last Reviewed: 03/05/201619994699-3081 [employer]. [address] [place] [address], [place] [address]. All righ ts reserved. This information is [...] needed for | 2 | 0 | 05/16/ | | | (ZOFRAN) 4 mg tablet [...] | PROVATION | | 06/04/2018 8:39 AMMRN: [id number] #: [id number] of : | | | 1950Admit Type: AmbulatoryAge: 68Room: [facility] 02Gender: MaleNote | | | Status: FinalizedAttending MD: GAVIN SILVA , [facility]rocedure: | | | ColonoscopyIndications: Screening for colorectal | | | malignant neoplasmProviders: GAVIN SILVA MD, | | | Isabel Michel RN, Cata Jovel, | | | Coal Shooter, Bill Harris MD (Anesthesia Staff)Referring MD: | | | Paul Mobley (Referring )Medicines: Monitored | | | Anesthesia CareComplications: No [...] | preparation was evaluated using the BBPS ([place] Bowel | | | Preparation Scale) with [...] | | 8:53:52 AMScope Out: 9:10:25 AM [facility] | | | [place], [address] [place] [address] | | | - The patient will [...] |Scope Out: 9:10:25 AM | | | [facility], [facility] [address] [place], [place] | | | [address] | | + + ---+ + +---------+ [...] | SPECIMEN(S): A ASCENDING COLON SPECIMEN SOURCE: A. ASCENDING | [facility] [facility] | | COLON CLINICAL HISTORY: Z12.11 [...] Tubular adenoma (one | | | fragment). JVR:[facility]:C2NR GROSS DESCRIPTION: The specimen | | | received in formalin and labeled as "Armando Dimas" and designated | | | as "ascending colon biopsy" per the requisition, consists of one | | | pink-miranda tissue fragment which measures 0.3 cm in diameter. The | | | entire specimen is submitted in a single cassette, (A1). js:NOAM:chacho | | | PERFORMING LABORATORY: The technical component was performed by | | | [employer], [address] [place] [address] (Medical | | | Director: Monserrat Pope MD; IA# [id number]). Professional | | | interpretation was performed by [facility] | | | [facility], [address] [place] [address] | | | [address] (Assistant Product Manager: Nitesh Trinidad M.D.). Diagnostician: | | | [...] | Special screening for malignant neoplasms, colon | + + | Kidney disease, chronic, stage I (GFR over 89 ml/min) Chronic kidney disease, Stage I | + + | Hypertension Unspecified essential hypertension | + + | Obstructive sleep apnea on CPAP Obstructive sleep apnea (adult) (pediatric) | + + documented in this encounter Administered Medications + +---------+ [...]
--- OUTSIDE RECORDS SUMMARY | ~2020-01-04 | XMS | Encounter Summary ---
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 | Gavin Silva | Special screening | | 2018 | Encounter | MED CTR MP INTRA OP | MD [address] | for malignant | | | | [address] | [address] [place] | neoplasms, colon | | | | [place], [place] | [place] [address] | | | | | [address] | [phone] | | | | | [phone] | | | +--------+ + + + [...] of preventing its spread. Date Last Reviewed: 03/05/201619995235-1305 [employer]. [address] [place] [address], [place] [address]. All righ ts reserved. This information is [...] | PROVATION | | 06/04/2018 8:39 AMMRN: [id number] #: [id number] of : | | | 1950Admit Type: AmbulatoryAge: 68Room: [facility] 02Gender: MaleNote | | | Status: FinalizedAttending MD: GAVIN SILVA , [facility]rocedure: | | | ColonoscopyIndications: Screening for colorectal | | | malignant neoplasmProviders: GAVIN SILVA MD, | | | Isabel Michel RN, Cata Jovel, | | | Analytics Analyst, Bill Harris MD (Anesthesia Staff)Referring MD: | [...] | preparation was evaluated using the BBPS ([place] Bowel | | | Preparation Scale) with [...] | | 8:53:52 AMScope Out: 9:10:25 AM [facility] | | | [place], [address] [place] [address] | | | - The patient will [...] |Scope Out: 9:10:25 AM | | | [facility], [facility] [place], [place] | | | [address] | | + + ---+ + +---------+ [...] ASCENDING COLON SPECIMEN SOURCE: A. ASCENDING | [place] [facility] | | COLON CLINICAL HISTORY: Z12.11 [...] Tubular adenoma (one | | | fragment). JVR:[facility]:C2NR GROSS DESCRIPTION: The specimen | | [...] component was performed by | | | [employer], [address] [place] [address] (Medical | | | Director: Monserrat Pope MD; IA# [id number]). Professional | | | interpretation was performed by [facility] | | | [facility], [address] [place] [address] | | | [address] (Health Information Specialist: Nitesh Trinidad M.D.). Diagnostician: | | | [...]
[~2020-01-04 06:49] MED LIST changes: +MOTION SICKNESS25 M1 PO; +ONDANSETRON ODT4 MG SL
[2020-01-04] MEDS ORDERED: QMIIZ ODT7.5 MG PO (07:11)
== END 2020-01-04 12:25 | disposition home or self-care (01) ==
LOC: ED 06:49
DX: I67.9 Cerebrovascular disease, unspecified (principal); F17.200 Nicotine dependence, unspecified, uncomplicated; Z79.899 Other long term (current) drug therapy
CPT/HCPCS: 70450; 70551; 80053; 85025; 99284-25

== ENCOUNTER 2021-03-06 06:36 | Emergency (ER) | payer MEDICARE, OTHER ==
[~2021-03-06] VITALS: Ht 188 cm; Wt 220.0 kg
[~2021-03-06 06:36] MED LIST changes: +QMIIZ ODT7.5 MG PO
[2021-03-06] MEDS ORDERED: PLAVIX75 MG PO (09:28)
[2021-03-06] MEDS ORDERED: VENTOLIN HFA18 GM (09:28)
== END 2021-03-06 09:35 | disposition home or self-care (01) ==
LOC: ED 06:36
DX: S63.650A Sprain of metacarpophalangeal joint of right index finger, initial encounter (principal); X50.9XXA Other and unspecified overexertion or strenuous movements or postures, initial encounter; F17.200 Nicotine dependence, unspecified, uncomplicated; Z79.899 Other long term (current) drug therapy; Z79.891 Long term (current) use of opiate analgesic; Z79.82 Long term (current) use of aspirin
CPT/HCPCS: 73130; 99283-25

== ENCOUNTER 2025-03-15 07:00 | Day surgery (SDC) | payer OTHER, MEDICARE ==
[2025-03-15] VITALS (9 sets, daily range): BP systolic 108–156; BP diastolic 53–86
[~2025-03-15] VITALS: Ht 188 cm; Wt 101.0 kg
[~2025-03-15 07:00] MED LIST changes: -ACETAMINOPHEN325 M1 PO; +BACTRIM DS TAB1 EACH PO; +CEFAZOLIN SODIUM 2 GM/20 ML SYR IV SCH; +D3-5000125 MCG PO; +DICLOFENAC SODI50 GM TOP; +GABAPENTIN 600 MG TAB PO SCH; +IBLOOD GLUCOSE TEST STRIP 1 EA TEST VI PRN; +INTRA-ARTICULAR ANALGESIC INJECTION XX SCH; +LACTATED RINGER'S 1,000 ML IV SCH; +LIDOCAINE HCL 1% 5 ML SDV INJ ONE; +OXYCODONE HCL 5 MG TAB PO SCH; +PANTOPRAZOLE SODIUM 40 MG TABEC PO SCH; +PERCOCET 5-3251 EACH PO; +PLAVIX75 MG PO; +REFRESH TEARS15 ML OU; +ROPIVACAINE IN 0.9% SOD CHL/PF 545 ML ELS.PMP.HR IRRIGATION SCH; +Ropivacaine HCl 20 MG/10 ML AMP ONE; +TRANEXAMIC ACID IN NACL,ISO-OS 1,000 MG/100 ML PIGGYBACK IV SCH; +TYLENOL EXTRA500 MG PO; +VENTOLIN HFA18 GM INH
[2025-03-15] MEDS ORDERED: Ropivacaine HCl 0.5% 30 ML VIAL ONE (09:19)
[2025-03-15] MEDS ORDERED: DEXAMETHASONE SOD PHOS 10 MG/ML VIAL ONE (09:19)
[2025-03-15] MEDS ORDERED: SODIUM CHLORIDE 0.9% 20 ML IV ONE (09:19)
[2025-03-15] MEDS ORDERED: LIDOCAINE HCL 2% 20 MG/ML VIAL INJ ONE (09:19)
[2025-03-15] MEDS ORDERED: LIDOCAINE HCL 2% 5 ML SDV ONE ×2 (10:30→13:42)
[2025-03-15] MEDS ORDERED: SENNOSIDES 1 TAB PO SCH (11:06)
[2025-03-15] MEDS ORDERED: ASPIRIN 325 MG TAB PO SCH (11:07)
[2025-03-15] MEDS ORDERED: OXYCODONE HCL 5 MG TAB PO PRN (11:15)
[2025-03-15] MEDS ORDERED: KETOROLAC TROMETHAMINE 15 MG/ML VIAL IV PRN (11:15)
[2025-03-15] MEDS ORDERED: IBLOOD GLUCOSE TEST STRIP 1 EA TEST VI PRN (14:00)
[2025-03-15] MEDS ORDERED: NALOXONE HCL 0.4 MG SYR IV PRN (14:00)
[2025-03-15] MEDS ORDERED: fentaNYL citrate 50 MCG/ML SDV IV PRN (14:00)
[2025-03-15] MEDS ORDERED: TRANEXAMIC ACID IN NACL,ISO-OS 1,000 MG/100 ML PIGGYBACK IV SCH (14:00)
[2025-03-15] MEDS ORDERED: HYDROmorphone HCL 1 MG/ML SYR IV PRN (14:00)
[2025-03-15] MEDS ORDERED: GABAPENTIN 300 MG CAP PO SCH (15:00)
--- NOTE | 2025-03-15 15:28 | OR ---
[facility] [address] [place], [place] [address] Signed DATE OF OPERATION: 03/15/2025 SURGEON: Maria Del Rosario Ramos MD PREOPERATIVE DIAGNOSIS: Severe degenerative joint disease, left knee. POSTOPERATIVE DIAGNOSIS: Severe degenerative joint disease, left knee. PROCEDURE PERFORMED: Left total knee arthroplasty with Toby. FIELD REPRESENTATIVES DIRECTOR: None. ANESTHESIA: Spinal. BLOOD LOSS: 230 mL. TOURNIQUET TIME: Zero. IMPLANTS: Jessie Triathlon size 5, 10 mm polyethylene and a 38 mm patella. BRIEF HISTORY: Shauna is a 75-year-old gentleman with painful arthritis and deformity in his knee. Risks and benefits of operative treatment were discussed with him and he elected to proceed. DESCRIPTION OF PROCEDURE: Once consent was obtained, he was taken to the operating room. After adequate anesthesia he was placed on the operating room table. All downside pressure points were well padded. The left knee was prepped and draped in a standard sterile fashion. The knee was approached through a standard anterior midline incision. This was carried through skin and subcutaneous tissue and a mid vastus arthrotomy was performed. The infrapatellar fat pad was excised and the MCL was elevated as a sleeve to the Electronically Signed By: MARIA DEL ROSARIO RAMOS MD 03/15/25 1528 PATIENT NAME: SHAUNA SCHUMACHER OPERATIVE REPORT DATE OF : 50 REPORT #: [id number] PHYSICIAN: MARIA DEL ROSARIO RAMOS MD PCP: GALILEA HERRING MD REPORT IS CONFIDENTIAL AND NOT TO BE RELEASED WITHOUT AUTHORIZATION [facility] [address] [place], [place] [address] Signed posteromedial corner or little bit beyond. The knee approach was widened due to the fact that he does have a significant knee contracture of 25 degrees. The navigation computer arrays were placed in the distal femur and proximal tibia. The leg was then registered with computer followed by the fine anatomic points of the knee. Varus and valgus testing was undertaken and slight adjustments were made to the prosthesis to get the ligament balance better. The tibial cut was quite deep due to the posteromedial defect. The robot was then brought in. We attempted to make the because of the tibial cut being so deep the computer array was actually in the way. We then stopped and moved the computer array distally through two separate stab incisions in the tibia and reacquired all the points with the computer. Then we brought the robot in and four straight cuts and two ankle cuts were made. Care was taken to protect the patellar tendon and MCL. The bony remnants were removed. The posterior osteophytes removed off the femur. An extensive posterior release was performed. Trials were then positioned. We got the knee to about 5 degrees of flexion contracture with good stability throughout. Patella was cut, sized and drilled for a 38 mm patella. Distal femoral drill holes were made and the proximal tibia was finished using the keel punch followed by the drill for a 50 mm post. The bone surfaces were cleaned and packed with dry Ray-Vaishali. The cement was mixed and reached proper consistency, was placed on the implants and the tibia. The tibia was then impacted in position with some difficulty. All excess cement was removed. The polyethylene was snapped into position and the femur was impacted. The knee was extended and loaded. The patella was clamped into position after remixing another batch of cement. The cement was allowed to harden. Once it hardened sufficiently, the remaining overflow was removed. The On-Q pain pump was percutaneously placed into the adductor canal from the suprapatellar pouch. The periarticular soft tissues were injected with 80 mL ropivacaine Toradol mixture. The knee was then copiously irrigated with one bottle Surgiphor followed by normal saline. The arthrotomy was then closed using combination of #2 FiberWire, #2 Stratafix, subcutaneous tissue with 0 Stratafix and skin with wen. Wounds were dressed with Acticoat-7 dressing, ABDs and SHELL wrap. He tolerated the procedure well. All sponge, needle, and instrument counts were correct. Maria Del Rosario Ramos MD BA/MODL /[id number] Electronically Signed By: MARIA DEL ROSARIO RAMOS MD 03/15/25 1528 PATIENT NAME: SHAUNA SCHUMACHER OPERATIVE REPORT DATE OF : 50 REPORT #: [id number] PHYSICIAN: MARIA DEL ROSARIO RAMOS MD PCP: GALILEA HERRING MD REPORT IS CONFIDENTIAL AND NOT TO BE RELEASED WITHOUT AUTHORIZATION [address] [address] Signed Copies: ~ Electronically Signed By: MARIA DEL ROSARIO RAMOS MD 03/15/25 1528 PATIENT NAME: SHAUNA SCHUMACHER OPERATIVE REPORT DATE OF : 50 REPORT #: [id number] PHYSICIAN: MARIA DEL ROSARIO RAMOS MD PCP: GALILEA HERRING MD REPORT IS CONFIDENTIAL AND NOT TO BE RELEASED WITHOUT AUTHORIZATION
[2025-03-15] MEDS ORDERED: fentaNYL citrate 100 MCG/2 ML VIAL ONE (15:42)
[2025-03-15] MEDS ORDERED: TRANEXAMIC ACID IN NACL,ISO-OS 1,000 MG/100 ML PIGGYBACK IV ONE (17:00)
[2025-03-15] MEDS ORDERED: CEFAZOLIN SODIUM 2 GM/20 ML SYR IV SCH (19:00)
[2025-03-16 02:00] VITALS: BP 114/54
[2025-03-16 05:22] VITALS: BP 135/65
[2025-03-16] MEDS ORDERED: OXYCODONE HCL5 M1 PO ×2 (07:16→09:00)
[2025-03-16] MEDS ORDERED: CEFUROXIME250 MG PO (07:16)
[2025-03-16] MEDS ORDERED: GABAPENTIN300 MG PO (07:17)
[2025-03-16] MEDS ORDERED: CELECOXIB 200 MG CAP PO SCH (08:00)
[2025-03-16 09:03] VITALS: BP 128/64
[2025-03-16] MEDS ORDERED: ATHLETE'S FOOT71 GM TOP (10:09)
[2025-03-16] MEDS ORDERED: ANTIFUNGAL113 GM TOP (10:10)
[2025-03-16 10:18] VITALS: BP 128/64
[2025-03-16 10:50] VITALS: BP 111/48
[2025-03-18] MEDS ORDERED: SULFAMETHOXAZO1 EAC1 (16:26)
[2025-03-22] MEDS ORDERED: HYDROMORPHONE HC4 MG PO (11:58)
== END 2025-03-16 10:50 | disposition home or self-care (01) ==
LOC: DS 07:00 → MS 18:10 → DS 03-16 10:50
PROVIDERS: ATTEND Specialist
PROC: 0SRD0JZ Replacement of Left Knee Joint with Synthetic Substitute, Open Approach (ICD-10-PCS; principal; 2025-03-15 10:25)
DX: M17.12 Unilateral primary osteoarthritis, left knee (principal); G89.18 Other acute postprocedural pain; I10 Essential (primary) hypertension; E78.00 Pure hypercholesterolemia, unspecified; Z87.891 Personal history of nicotine dependence; Z79.82 Long term (current) use of aspirin; Z79.899 Other long term (current) drug therapy
CPT/HCPCS: 01402; 64447; 64450; 64454; 73560; 76942; 80053; 85025; 96374; 96375; 97110; 97161; 97530; A9270; C1713; C1776; J0690; J1100; J1171; J1885; J2003; J2704; J2795; J3010; J7121; J7999

== ENCOUNTER 2025-04-05 03:09 | Emergency (ER) | payer OTHER, MEDICARE ==
[~2025-04-05] VITALS: Ht 188 cm; Wt 96.0 kg
[~2025-04-05 03:09] MED LIST changes: +ANTIFUNGAL113 GM TOP; +ATHLETE'S FOOT71 GM TOP; -CEFAZOLIN SODIUM 2 GM/20 ML SYR IV SCH; +CEFUROXIME250 MG PO; -GABAPENTIN 600 MG TAB PO SCH; +GABAPENTIN300 MG PO; +HYDROMORPHONE HC4 MG PO; -IBLOOD GLUCOSE TEST STRIP 1 EA TEST VI PRN; -INTRA-ARTICULAR ANALGESIC INJECTION XX SCH; -LACTATED RINGER'S 1,000 ML IV SCH; -LIDOCAINE HCL 1% 5 ML SDV INJ ONE; -OXYCODONE HCL 5 MG TAB PO SCH; +OXYCODONE HCL5 M1 PO; -PANTOPRAZOLE SODIUM 40 MG TABEC PO SCH; -ROPIVACAINE IN 0.9% SOD CHL/PF 545 ML ELS.PMP.HR IRRIGATION SCH; -Ropivacaine HCl 20 MG/10 ML AMP ONE; +SULFAMETHOXAZO1 EAC1; -TRANEXAMIC ACID IN NACL,ISO-OS 1,000 MG/100 ML PIGGYBACK IV SCH
--- OUTSIDE RECORDS SUMMARY | 2025-04-05 03:13 | XMS ---
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 - 2 Visits in 30 Days CARE PROVIDERS -, [facility] Dentist: Seconds Inspector Current Becker PHONE: [phone] NANO ELAINE Nurse Practitioner: Family Current PHONE: [phone] MOOKIE OJEDA Physician Clinical Genetics Laboratory Chief Current DIPAK PHONE: [phone] CHANTEL ASCENCIO Nurse Practitioner: Adult Health Oneal IBANEZ PHONE: [phone] Sue has no Care Guidelines for this patient. Diana VISIT COUNT (12 MO.) 4 JULITA Hernandez TOTAL 4 NOTE: Visits indicate total known visits. ED/UCC VISIT TRACKING (12 MO.) 04/05/2025 03:10 JULITA Etienne [place] TYPE: Emergency COMPLAINT: - THROAT ISSUE 03/18/2025 13:11 JULITA [facility] [place] TYPE: Emergency COMPLAINT: - LEG PAIN 01/06/2025 09:11 JULITA [facility] [place] TYPE: Emergency COMPLAINT: - RT ARM SWELLING DIAGNOSES: - Cellulitis of right upper limb - Other long term care administrator (current) drug therapy - Pain in right arm - Personal history of nicotine dependence 12/31/2024 05:[address] 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 - Other long term care administrator (current) drug therapy - Pain in left knee - Personal history of nicotine dependence INPATIENT VISIT TRACKING (12 MO.) 03/18/2025 16:33 JULITA Etienne [place] TYPE: Medical Surgical COMPLAINT: - PAIN L KNEE DIAGNOSES: - Acquired absence of other specified parts of digestive tract - Acquired absence of other specified parts of digestive tract - Adult failure to thrive - Adult failure to thrive - Atherosclerotic heart disease of [place] coronary artery without angina pectoris - Atherosclerotic heart disease of [place] coronary artery without angina pectoris - Body mass index [BMI] 26.0-26.9, adult - Body mass index [BMI] 26.0-26.9, adult - Essential (primary) hypertension - Essential (primary) hypertension - snf (current) use of aspirin - 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 - snf (current) use of opiate analgesic - snf (current) use of opiate analgesic - Other acute postprocedural pain - Other acute postprocedural pain - Other custodial (current) drug therapy - Other long term care administrator (current) drug therapy - Other specified postprocedural states - Other specified postprocedural states - Pain in left knee - Personal history of nicotine dependence - Personal history of nicotine dependence - Personal history of other diseases of the circulatory system - Personal history of other diseases of the circulatory system - Presence of left artificial knee joint - Presence of left artificial knee joint - Problems related to living alone - Problems related to living alone - Stiffness of left knee, not elsewhere classified - Stiffness of left knee, not elsewhere classified - Weakness - Weakness [email or web address]
[2025-04-05] MEDS ORDERED: GLUCAGON,HUMAN RECOMBINANT 1 MG/ML VIAL IM ONE (03:15)
[2025-04-05] MEDS ORDERED: LIDOCAINE & ANTACID 35 ML BTL PO ONE (04:15)
[2025-04-05] MEDS ORDERED: SUCRALFATE1 GM/10 ML PO (04:29)
[2025-04-05 05:59] VITALS: BP 121/60
== END 2025-04-05 05:30 | disposition home or self-care (01) ==
LOC: ED 03:09
DX: T18.198A Other foreign object in esophagus causing other injury, initial encounter (principal); W44.8XXA Other foreign body entering into or through a natural orifice, initial encounter; Z87.891 Personal history of nicotine dependence; Z79.899 Other long term (current) drug therapy; Z79.82 Long term (current) use of aspirin
CPT/HCPCS: 70360; 96372; 99283; J1610

== ENCOUNTER 2025-06-14 16:12 | Inpatient (IN) | payer OTHER, MEDICARE ==
[~2025-06-14] VITALS: Ht 188 cm; Wt 94.1 kg
--- NOTE | ~2025-06-14 | EKG ---
[facility] [address], [place] [address] Cancelled EK completed, results pending confirmation PATIENT NAME: ENDYSHAUNA Electrocardiogram DATE OF : 50 PHYSICIAN: PRELIMINARY REPORT #: [id number] REPORT IS CONFIDENTIAL AND NOT TO BE RELEASED WITHOUT AUTHORIZATION
--- NOTE | ~2025-06-14 | EKG ---
[facility] [address] [facility], [place] [address] Draft EK completed, results pending confirmation PATIENT NAME: ENDYROCKYREBECCALENNIE SMITHNIE Electrocardiogram DATE OF : 50 PHYSICIAN: PRELIMINARY REPORT #: [id number] REPORT IS CONFIDENTIAL AND NOT TO BE RELEASED WITHOUT AUTHORIZATION
--- OUTSIDE RECORDS SUMMARY | ~2025-06-14 | XMS | Continuity of Care Document ---
Demographics + + + | Address | [address] | | | [place] [address] | + + + | Preferred Language | Unknown | + + + | Marital Status | | + + + | Baptism Affiliation | Unknown | + + + | Race | White | + + + | Ethnic Group | Not or | + + + Author + + + | Author | [facility] | + + + | Organization | [facility] | + + + | Address | [address] | | | [place] [address] | + + + | Phone | | + + + Care Team Providers + + + + | Care Specimen Preparation Assistant Name | Role | Phone | + + + + Unavailable | Unavailable | + + + + Unavailable | Unavailable | + + + + Unavailable | Unavailable | + + + + Allergies and Intolerances + + + + + + | date | description | facility | reaction | severity | + + + + + + | 2025-04-05 | UNK | [facility] - | (no reaction) | (no severity) | | 00:00 | | [facility] | [facility] | | | + + + + + + Encounters No information. Functional Status No information. Immunizations + + + + | date | description | facility | + + + + | (no date) | No vaccine administered | [facility] | | | | [facility] | + + + + Medications + + + + | date | description | facility | + + + + | (no date) | OXYCODONE HCL | [facility] | | | | [facility] | + + + + | (no date) | oxycodone hydrochloride 5 | [facility] | | | MG Oral Tablet | [facility] | + + + + | (no date) | OXYCODONE | [facility] | | | HCL/ACETAMINOPHEN | [facility] | + + + + | (no date) | acetaminophen 325 MG / | [facility] | | | oxycodone hydrochloride 5 | [facility] | | | MG Oral Tab | | + + + + | (no date) | CARBOXYMETHYLCELLULOSE | [facility] | | | SODIUM | [facility] | + + + + | (no date) | carboxymethylcellulose | [facility] | | | sodium 5 MG/ML Ophthalmic | [facility] | | | Solution | | + + + + | (no date) | CHLORTHALIDONE | [facility] | | | | [facility] | + + + + | (no date) | chlorthalidone 25 MG Oral | [facility] | | | Tablet | [facility] | + + + + | (no date) | LOVASTATIN | [facility] | | | | [facility] | + + + + | (no date) | lovastatin 20 MG Oral | [facility] | | | Tablet | [facility] | + + + + | (no date) | ACETAMINOPHEN | [facility] | | | | [facility] | + + + + | (no date) | acetaminophen 500 MG Oral | [facility] | | | Tablet | [facility] | + + + + | (no date) | LISINOPRIL | [facility] | | | | [facility] | + + + + | (no date) | lisinopril 40 MG Oral | [facility] | | | Tablet [Zestril] | [facility] | + + + + | (no ) | CLOPIDOGREL BISULFATE | [facility] | | | | [facility] | + + + + | (no ) | clopidogrel 75 MG Oral | [facility] | | | Tablet [Plavix] | [facility] | + + + + | (no ) | Cholecalciferol (Vitamin | [facility] | | | D3) | [facility] | + + + + | (no date) | cholecalciferol 0.125 MG | [facility] | | | Oral Capsule | [facility] | + + + + | (no date) | ASPIRIN | [facility] | | | | [facility] | + + + + | (no date) | aspirin 81 MG Delayed | [facility] | | | Release Oral Tablet | [facility] | + + + + | (no date) | Clotrimazole | [facility] | | | | [facility] | + + + + | (no date) | clotrimazole 10 MG/ML | [facility] | | | Topical Cream | [facility] | + + + + | (no date) | LISINOPRIL | [facility] | | | | [facility] | + + + + | (no date) | lisinopril 2.5 MG Oral | [facility] | | | Tablet | [facility] | + + + + | (no date) | MELOXICAM | [facility] | | | | [facility] | + + + + | (no date) | meloxicam 7.5 MG Oral | [facility] | | | Tablet | [facility] | + + + + | (no date) | SIMVASTATIN | [facility] | | | | [facility] | + + + + | (no date) | simvastatin 20 MG Oral | [facility] | | | Tablet | [facility] | + + + + | 2025-04-05 00:00 | SUCRALFATE | [facility] | | | | [facility] | + + + + | 2025-04-05 00:00 | sucralfate 100 MG/ML Oral | [facility] | | | Suspension | [facility] | + + + + | (no date) | PANTOPRAZOLE SODIUM | [facility] | | | | [facility] | + + + + | (no date) | pantoprazole 40 MG Delayed | [facility] | | | Release Oral Tablet | [facility] | + + + + | (no date) | TRAMADOL HCL | [facility] | | | | [facility] | + + + + | (no date) | tramadol hydrochloride 50 | [facility] | | | MG Oral Tablet | [facility] | + + + + | (no date) | Berberine 90 MG / | [facility] | | | Cholecalciferol 500 UNT / | [facility] | | | Hops extract 370 | | + + + + | (no date) | VIT D3 & K/BERBERINE | [facility] | | | HCL/HOPS | [facility] | + + + + | (no date) | | [facility] | | | SULFAMETHOXAZOLE/TRIMETHOPR | [facility] | | | IM DS | | + + + + | (no date) | sulfamethoxazole 800 MG / | [facility] | | | trimethoprim 160 MG Oral | [facility] | | | Tablet [B | | + + + + | (no ) | Diclofenac Sodium | [facility] | | | | [facility] | + + + + | (no ) | diclofenac sodium 0.01 | [facility] | | | MG/MG Topical Gel | [facility] | + + + + | (no ) | DICLOFENAC SODIUM | [facility] | | | | [facility] | + + + + | (no date) | diclofenac sodium 0.03 | [facility] | | | MG/MG Topical Gel | [facility] | + + + + | 2025-03-22 00:00 | HYDROMORPHONE HCL | [facility] | | | | [facility] | + + + + | 2025-03-22 00:00 | hydromorphone | [facility] | | | hydrochloride 4 MG Oral | [facility] | | | Tablet | | + + + + | (no date) | MICONAZOLE NITRATE | [facility] | | | | [facility] | + + + + | (no date) | miconazole nitrate 0.02 | [facility] | | | MG/MG Topical Powder | [facility] | + + + + Problems + + + + | date | description | facility | + + + + | 2025-03-18 00:00 | Left knee pain | [facility] | | | | [facility] | + + + + | 2025-03-18 00:00 | Left knee pain | [facility] | | | | [facility] | + + + + | 2025-04-05 00:00 | Foreign body in esophagus | [facility] | | | | [facility] | + + + + | 2025-04-05 00:00 | Foreign body in esophagus | [facility] | | | | [facility] | + + + + Procedures No information. Results/Labs +--------+--------+ +---------+--------+---------+ | test | date | facility | value | unit | notes | +--------+--------+ +---------+--------+---------+ + + | Result panel 1 | + + + + + +-------+ + + | Serum or | 2025-03-18 | | 6.7 | (missing) | (missing) | | plasma | 13:35 | [facility] | | | | | protein [facility] | [facility] | | | | (mass/volume | | Hospital | | | | | ) | | | | | | + + + +-------+ + + + + | Result panel 2 | + + + + + +-------+ + + | Serum or | 2025-03-18 | | 2.9 | (missing) | (missing) | | plasma | 13:35 | [facility] | | | | | albumin | [facility] | [facility] | | | | (mass/volume | | Hospital | | | | | ) | | | | | | + + + +-------+ + + + + | Result panel 3 | + + + + + +-------+ + + | Serum | 2025-03-18 | | 3.8 | (missing) | (missing) | | globulin | 13:35 | [facility] | | | | | measurement | [facility] | (mass/volume | | [facility] | | | | ) | | [facility] | | | | + + + +-------+ + + + + | Result panel 4 | + + + + + +--------+ + + | Serum or | 2025-03-18 | | 0.76 | (missing) | (missing) | | plasma | 13:35 | [facility] | | | | | albumin/glob | [facility] | ulin mass | | [facility] | | | | ratio | | [facility] | | | | + + + +--------+ + + + + | Result panel 5 | + + + + + +-------+ + + | Serum or | 2025-03-18 | | 0.5 | (missing) | (missing) | | plasma total | 13:35 | [facility] | | | | | bilirubin | [facility] | [facility] | | | | | (mass/volume | | Hospital | | | | | ) | | | | | | + + + +-------+ + + + + | Result panel 6 | + + + + + +------+ + + | Serum or | 2025-03-18 | | 43 | (missing) | (missing) | | plasma | 13:35 | [facility] | | | | | aspartate | [facility] - [facility] | | | | | aminotransfe | | [facility] | | | | | rase | | Hospital | | | | | measurement | | | | | | | (enzymatic | | | | | | | activity/vol | | | | | | | ume) | | | | | | + + + +------+ + + + + | Result panel 7 | + + + + + +------+ + + | Serum or | 2025-03-18 | | 68 | (missing) | (missing) | | plasma | 13:35 | [facility] | | | | | alanine | [facility] - [facility] | | | | | aminotransfe | | [facility] | | | | | rase | | Hospital | | | | | measurement | | | | | | | (enzymatic | | | | | | | activity/vol | | | | | | | ume) | | | | | | + + + +------+ + + + + | Result panel 8 | + + + + + +-------+ + + | Serum or | 2025-03-18 | | 100 | (missing) | (missing) | | plasma | 13:35 | [facility] | | | | | alkaline | [facility] | | | | | phosphatase | | [facility] | | | | | measurement | | Hospital | | | | | (enzymatic | | | | | | | activity/vol | | | | | | | ume) | | | | | | + + + +-------+ + + + + | Result panel 9 | + + + + + +---------+ + + | Blood | 2025-03-18 | | 13.86 | (missing) | (missing) | | leukocytes | 13:35 | [facility] | | | | | automated | [facility] - [facility] | count | | [facility] | | | | | (number/volu | | Hospital | | | | | me) | | | | | | + + + +---------+ + + + + | Result panel 10 | + + + + + +--------+ + + | Blood | 2025-03-18 | | 3.00 | (missing) | (missing) | | erythrocytes | 13:35 | [facility] | | | | | automated | [facility] | count | | [facility] | | | | | (number/volu | | Hospital | | | | | me) | | | | | | + + + +--------+ + + + + | Result panel 11 | + + + + + +-------+ + + | Blood | 2025-03-18 | | 9.6 | (missing) | (missing) | | hemoglobin | 13:35 | [facility] | | | | | measurement | [facility] | (mass/volume | | [facility] | | | | ) | | [facility] | | | | + + + +-------+ + + + + | Result panel 12 | + + + + + +--------+ + + | Automated | 2025-03-18 | | 29.1 | (missing) | (missing) | | blood | 13:35 | [facility] | | | | | hematocrit | [facility] | [facility] | | | | + + + +--------+ + + + + | Result panel 13 | + + + + + +--------+ + + | Automated | 2025-03-18 | | 97.0 | (missing) | (missing) | | erythrocyte | 13:35 | [facility] | | | | | mean | [facility] | | | | | corpuscular | | [facility] | | | | volume | | Hospital | | | | + + + +--------+ + + + + | Result panel 14 | + + + + + +--------+ + + | Automated | 2025-03-18 | | 32.0 | (missing) | (missing) | | erythrocyte | 13:35 | [facility] | | | | | mean | | - [facility] | | | | | corpuscular | | [facility] | | | | | hemoglobin | | Hospital | | | | | (mass per | | | | | | | erythrocyte) | | | | | | | | | | | | | + + + +--------+ + + + + | Result panel 15 | + + + + + +--------+ + + | Automated | 2025-03-18 | | 33.0 | (missing) | (missing) | | erythrocyte | 13:35 | [facility] | | | | | mean | | - [facility] | | | | | corpuscular | | [facility] | | | | | hemoglobin | | Hospital | | | | | concentratio | | | | | | | n | | | | | | | measurement | | | | | | | (mass/volume | | | | | | | ) | | | | | | + + + +--------+ + + + + | Result panel 16 | + + + + + +-------+ + + | Automated | 2025-03-18 | | 210 | (missing) | (missing) | | blood | 13:35 | [facility] | | | | | platelet | [facility] | count | | [facility] | | | | | (count/volum | | Hospital | | | | | e) | | | | | | + + + +-------+ + + + + | Result panel 17 | + + + + + +--------+ + + | Automated | 2025-03-18 | | 58.5 | (missing) | (missing) | | blood | 13:35 | [facility] | | | | | neutrophil | [facility] | | [facility] | count as | | [facility] | | | | | percentage | | Hospital | | | | | of total | | | | | | | leukocytes | | | | | | + + + +--------+ + + + + | Result panel 18 | + + + + + +--------+ + + | Automated | 2025-03-18 | | 28.3 | (missing) | (missing) | | blood | 13:35 | [facility] | | | | | lymphocyte | | - [facility] | | [facility] | | count as | | [facility] | | | | | percentage | | Hospital | | | | | ot total | | | | | | | leukocytes | | | | | | + + + +--------+ + + + + | Result panel 19 | + + + + + +--------+ + + | Automated | 2025-03-18 | | 11.7 | (missing) | (missing) | | blood | 13:35 | [facility] | | | | | monocyte | | - [facility] | | [facility] | | count as | | [facility] | | | | | percentage | | Hospital | | | | | of total | | | | | | | leukocytes | | | | | | + + + +--------+ + + + + | Result panel 20 | + + + + + +-------+ + + | Automated | 2025-03-18 | | 0.5 | (missing) | (missing) | | blood | 13:35 | [facility] | | | | | eosinophil | | - [facility] | [facility] | count as | | [facility] | | | | | percentage | | Hospital | | | | | of total | | | | | | | leukocytes | | | | | | + + + +-------+ + + + + | Result panel 21 | + + + + + +-------+ + + | Automated | 2025-03-18 | | 0.6 | (missing) | (missing) | | blood | 13:35 | [facility] | | | | | basophil | | - [facility] | | [facility] | | count as | | [facility] | | | | | percentage | | Hospital | | | | | of total | | | | | | | leukocytes | | | | | | + + + +-------+ + + + + | Result panel 22 | + + + + + +-------+ + + | Serum or | 2025-03-18 | | 101 | (missing) | (missing) | | plasma | 13:35 | [facility] | | | | | glucose | | - [facility] | measurement | | [facility] | | | | | (mass/volume | | Hospital | | | | | ) | | | | | | + + + +-------+ + + + + | Result panel 23 | + + + + + +------+ + + | Serum or | 2025-03-18 | | 22 | (missing) | (missing) | | plasma urea | 13:35 | [facility] | | | | | nitrogen | | - [facility] | | [facility] | measurement | | [facility] | | | | (mass/volume | | Hospital | | | | | ) | | | | | | + + + +------+ + + + + | Result panel 24 | + + + + + +--------+ + + | Serum or | 2025-03-18 | | 1.29 | (missing) | (missing) | | plasma | 13:35 | [facility] | | | | | creatinine | | - [facility] | measurement | | [facility] | | | | (mass/volume | | Hospital | | | | | ) | | | | | | + + + +--------+ + + + + | Result panel 25 | + + + + + +------+ + + | Glomerular | 2025-03-18 | | 58 | (missing) | (missing) | | filtration | 13:35 | [facility] | | | | | rate/1.73 sq | [facility] - [facility] | | | | | M.predicted | | [facility] | | | | | [Volume | | Hospital | | | | | Rate/Area] | | | | | | | inSerum, | | | | | | | Plasma or | | | | | | | Blood by | | | | | | | Creatinine-b | | | | | | | ased formula | | | | | | | (CKD-EPI | | | | | | | 2020) | | | | | | + + + +------+ + + + + | Result panel 26 | + + + + + +---------+ + + | Serum or | 2025-03-18 | | 17.05 | (missing) | (missing) | | plasma urea | 13:35 | [facility] | | | | | nitrogen/cre | [facility] - [facility] | | [facility] | | atinine mass | | [facility] | | | | | ratio | | Hospital | | | | + + + +---------+ + + + + | Result panel 27 | + + + + + +-------+ + + | Serum or | 2025-03-18 | | 138 | (missing) | (missing) | | plasma | 13:35 | [facility] | | | | | sodium | | - [facility] | [facility] | measurement | | [facility] | | | | | (moles/volum | | Hospital | | | | | e) | | | | | | + + + +-------+ + + + + | Result panel 28 | + + + + + +-------+ + + | Serum or | 2025-03-18 | | 3.8 | (missing) | (missing) | | plasma | 13:35 | [facility] | | | | | potassium | | - [facility] | [facility] | measurement | | [facility] | | | | | (moles/volum | | Hospital | | | | | e) | | | | | | + + + +-------+ + + + + | Result panel 29 | + + + + + +-------+ + + | Serum or | 2025-03-18 | | 103 | (missing) | (missing) | | plasma | 13:35 | [facility] | | | | | chloride | | - [facility] | [facility] | measurement | | [facility] | | | | | (moles/volum | | Hospital | | | | | e) | | | | | | + + + +-------+ + + + + | Result panel 30 | + + + + + +------+ + + | Serum or | 2025-03-18 | | 26 | (missing) | (missing) | | plasma | 13:35 | [facility] | | | | | carbon | [facility] - [facility] | | | | | dioxide, | | [facility] | | | | | total | | Hospital | | | | | measurement | | | | | | | (moles/volum | | | | | | | e) | | | | | | + + + +------+ + + + + | Result panel 31 | + + + + + +--------+ + + | Serum or | 2025-03-18 | | 12.8 | (missing) | (missing) | | plasma anion | 13:35 | [facility] | | | | | gap 4 | [facility] | | | | + + + +--------+ + + + + | Result panel 32 | + + + + + +-------+ + + | Serum or | 2025-03-18 | | 8.6 | (missing) | (missing) | | plasma | 13:35 | [facility] | | | | | calcium | [facility] | measurement | | [facility] | | | | (mass/volume | | Hospital | | | | | ) | | | | | | + + + +-------+ + + + + | Result panel 33 | + + + + + +---------+ + + | WBC # Bld | 2025-03-18 | | 13.86 | (missing) | (missing) | | Auto | 13:35:07 | [facility] | | | | + + + +---------+ + + + + | Result panel 34 | + + + + + +--------+ + + | Lymphocytes | 2025-03-18 | | 28.3 | (missing) | (missing) | | NFr Bld | 13:35:07 | [facility] | | | | | Auto | [facility] | | | | + + + +--------+ + + + + | Result panel 35 | + + + + + +--------+ + + | Monocytes | 2025-03-18 | | 11.7 | (missing) | (missing) | | NFr Bld Auto | 13:35:07 | [facility] | | | | + + + +--------+ + + + + | Result panel 36 | + + + + + +-------+ + + | Eosinophil | 2025-03-18 | | 0.5 | (missing) | (missing) | | NFr Bld Auto | 13:35:07 | [facility] | [facility] | | | | + + + +-------+ + + + + | Result panel 37 | + + + + + +-------+ + + | Basophils | 2025-03-18 | | 0.6 | (missing) | (missing) | | NFr Bld Auto | 13:35:07 | [facility] | | | | + + + +-------+ + + + + | Result panel 38 | + + + + + +--------+ + + | RBC # Bld | 2025-03-18 | | 3.00 | (missing) | (missing) | | Auto | 13:35:07 | [facility] | | | | + + + +--------+ + + + + | Result panel 39 | + + + + + +-------+ + + | Hgb | 2025-03-18 | | 9.6 | (missing) | (missing) | | Bld-mCnc | 13:35:07 | [facility] | | | | + + + +-------+ + + + + | Result panel 40 | + + + + + +-------+---------+ + | Glucose | 2025-03-18 | | 101 | mg/dL | (missing) | | SerPl-mCnc | 13:35:07 | [facility] | | | | + + + +-------+---------+ + + + | Result panel 41 | + + + + + +------+---------+ + | BUN | 2025-03-18 | | 22 | mg/dL | (missing) | | [facility] | 13:35:07 | [facility] | | | | + + + +------+---------+ + + + | Result panel 42 | + + + + + +--------+---------+ + | Creat | 2025-03-18 | | 1.29 | mg/dL | (missing) | | SerPdylan-mCgissell | 13:35:07 | [facility] | [facility] | | | | + + + +--------+---------+ + + + | Result panel 43 | + + + + + +------+ + + | eGFRcr | 2025-03-18 | | 58 | (missing) | (missing) | | SerPlBld | 13:35:07 | [facility] | | | | | CKD-EPI 2020 | [facility] | | | | + + + +------+ + + + + | Result panel 44 | + + + + + +---------+ + + | BUN/Creat | 2025-03-18 | | 17.05 | (missing) | (missing) | | SerPl | 13:35:07 | [facility] | | | | + + + +---------+ + + + + | Result panel 45 | + + + + + +--------+ + + | Hct VFr.DF | 2025-03-18 | | 29.1 | (missing) | (missing) | | Bld Auto | 13:35:07 | [facility] | | | | + + + +--------+ + + + + | Result panel 46 | + + + + + +-------+ + + | Sodium | 2025-03-18 | | 138 | (missing) | (missing) | | SerPl-sCnc | 13:35:07 | [facility] | | [facility] | | | | + + + +-------+ + + + + | Result panel 47 | + + + + + +-------+ + + | Potassium | 2025-03-18 | | 3.8 | (missing) | (missing) | | SerPl-sCnc | 13:35:07 | [facility] | [facility] | | | | + + + +-------+ + + + + | Result panel 48 | + + + + + +-------+ + + | Chloride | 2025-03-18 | | 103 | (missing) | (missing) | | SerPl-sCnc | 13:35:07 | [facility] | | | | + + + +-------+ + + + + | Result panel 49 | + + + + + +------+ + + | CO2 | 2025-03-18 | | 26 | (missing) | (missing) | | SerPl-sCnc | 13:35:07 | [facility] | | | | + + + +------+ + + + + | Result panel 50 | + + + + + +--------+ + + | Anion Gap | 2025-03-18 | | 12.8 | (missing) | (missing) | | SerPl | 13:35:07 | [facility] | | | | | Calculated.4 | [facility]-s[facility]nc | [facility] | | | | + + + +--------+ + + + + | Result panel 51 | + + + + + +-------+---------+ + | Calcium | 2025-03-18 | | 8.6 | mg/dL | (missing) | | SerPl-mCnc | 13:35:07 | [facility] | | | | + + + +-------+---------+ + + + | Result panel 52 | + + + + + +-------+ + + | Prot | 2025-03-18 | | 6.7 | (missing) | (missing) | | [facility] | 13:35:07 | [facility] | | | | + + + +-------+ + + + + | Result panel 53 | + + + + + +-------+ + + | Albumin | 2025-03-18 | | 2.9 | (missing) | (missing) | | SerPl-mCnc | 13:35:07 | [facility] | | | | + + + +-------+ + + + + | Result panel 54 | + + + + + +-------+ + + | Globulin | 2025-03-18 | | 3.8 | (missing) | (missing) | | Ser-mCnc | 13:35:07 | [facility] | | | | + + + +-------+ + + + + | Result panel 55 | + + + + + +--------+ + + | | 2025-03-18 | | 0.76 | (missing) | (missing) | | Albumin/Glob | 13:35:07 | [facility] | | | | | SerPl | [facility] | | | | + + + +--------+ + + + + | Result panel 56 | + + + + + +--------+ + + | RBC Auto | 2025-03-18 | | 97.0 | (missing) | (missing) | | | 13:35:07 | [facility] | | | | + + + +--------+ + + + + | Result panel 57 | + + + + + +-------+---------+ + | Bilirub | 2025-03-18 | | 0.5 | mg/dL | (missing) | | [facility] | 13:35:07 | [facility] | | | | + + + +-------+---------+ + + + | Result panel 58 | + + + + + +------+ + + | AST | 2025-03-18 | | 43 | (missing) | (missing) | | [facility] | 13:35:07 | [facility] | | | | + + + +------+ + + + + | Result panel 59 | + + + + + +------+ + + | ALT | 2025-03-18 | | 68 | (missing) | (missing) | | [facility] | 13:35:07 | [facility] | | | | + + + +------+ + + + + | Result panel 60 | + + + + + +-------+ + + | ALP | 2025-03-18 | | 100 | (missing) | (missing) | | [facility] | 13:35:07 | [facility] | | | | + + + +-------+ + + + + | Result panel 61 | + + + + + +--------+ + + | [facility] RBC Qn | 2025-03-18 | | 32.0 | (missing) | (missing) | | Auto | 13:35:07 | [facility] | [facility] | [facility] | | | | + + + +--------+ + + + + | Result panel 62 | + + + + + +--------+ + + | MCHC RBC | 2025-03-18 | | 33.0 | (missing) | (missing) | | Auto-EntMCnc | 13:35:07 | [facility] | | | | + + + +--------+ + + + + | Result panel 63 | + + + + + +-------+ + + | Platelet # | 2025-03-18 | | 210 | (missing) | (missing) | | Bld Auto | 13:35:07 | [facility] | | | | + + + +-------+ + + + + | Result panel 64 | + + + + + +--------+ + + | Neutrophils | 2025-03-18 | | 58.5 | (missing) | (missing) | | NFr Bld | 13:35:07 | [facility] | | | | | Auto | [facility] | | | | + + + +--------+ + + + + | Result panel 65 | + + + + + + + + + | Color of | 2025-03-18 | | YELLOW | (missing) | (missing) | | Urine by | 15:20 | [facility] | | | | | Auto | [facility] | | | | + + + + + + + + + | Result panel 66 | + + + + + +---------+ + + | Character | 2025-03-18 | | CLEAR | (missing) | (missing) | | of Urine | 15:20 | [facility] | | | | + + + +---------+ + + + + | Result panel 67 | + + + + + + + + + | Glucose | 2025-03-18 | | NEGATIVE | (missing) | (missing) | | [Presence] | 15:20 | [facility] | | | | | in Urine by | [facility] | Test strip | | [facility] | | | | + + + + + + + + + | Result panel 68 | + + + + + + + + + | Urine total | 2025-03-18 | | POSITIVE | (missing) | (missing) | | bilirubin | 15:20 | [facility] | | | | | detection by | [facility] - [facility] | test strip | [facility] | | | | + + + + + + + + + | Result panel 69 | + + + + + +---------+ + + | Urine | 2025-03-18 | | TRACE | (missing) | (missing) | | ketones | 15:20 | [facility] | | | | | detection by | [facility] | test strip | [facility] | | | | + + + +---------+ + + + + | Result panel 70 | + + + + + +---------+ + + | Specific | 2025-03-18 | | 1.025 | (missing) | (missing) | | gravity ur | 15:20 | [facility] | | | | | dipstick | [facility] | | | | + + + +---------+ + + + + | Result panel 71 | + + + + + + + + + | Urine | 2025-03-18 | | TRACE-I | (missing) | (missing) | | hemoglobin | 15:20 | [facility] | | | | | detection by | | - [facility] | test strip | [facility] | | | | + + + + + + + + + | Result panel 72 | + + + + + +-------+ + + | Urine pH | 2025-03-18 | | 6.0 | (missing) | (missing) | | measurement | 15:20 | [facility] | | | | | by test | [facility] | [facility] | | strip | | [facility] | | | | + + + +-------+ + + + + | Result panel 73 | + + + + + +------+ + + | Protein | 2025-03-18 | | 30 | (missing) | (missing) | | urine test | 15:20 | [facility] | | | | | strip | | - [facility] | | | | + + + +------+ + + + + | Result panel 74 | + + + + + + + + + | | 2025-03-18 | | NORMAL | (missing) | (missing) | | Urobilinogen | 15:20 | [facility] | | | | | | [facility] | | | | | [Mass/volume | | [facility] | | | | | ] in Urine | | Hospital | | | | | by Test | | | | | | | strip | | | | | | + + + + + + + + + | Result panel 75 | + + + + + + + + + | Urine | 2025-03-18 | | NEGATIVE | (missing) | (missing) | | nitrite | 15:20 | [facility] | | | | | detection by | [facility] - [facility] | | test strip | | [facility] | | | | + + + + + + + + + | Result panel 76 | + + + + + + + + + | Urine | 2025-03-18 | | NEGATIVE | (missing) | (missing) | | leukocyte | 15:20 | [facility] | | | | | esterase | | - [facility] | | [facility] | detection by | | [facility] | | | | | dipstick | | Hospital | | | | + + + + + + + + + | Result panel 77 | + + + + + +-------+ + + | Automated | 2025-03-18 | | 0-1 | (missing) | (missing) | | urine | 15:20 | [facility] | | | | | sediment | | - [facility] | | | | | erythrocyte | | [facility] | | | | | count by | | Hospital | | | | | microscopy | | | | | | | (number/high | | | | | | | power | | | | | | | field) | | | | | | + + + +-------+ + + + + | Result panel 78 | + + + + + +-------+ + + | Automated | 2025-03-18 | | 0-1 | (missing) | (missing) | | urine | 15:20 | [facility] | | | | | sediment | | - [facility] | | | | | leukocyte | | [facility] | | | | | count by | | Hospital | | | | | microscopy | | | | | | | (number/high | | | | | | | power | | | | | | | field) | | | | | | + + + +-------+ + + + + | Result panel 79 | + + + + + + + + + | Automated | 2025-03-18 | | SQUAMOUS 1+ | (missing) | (missing) | | urine | 15:20 | [facility] | | | | | sediment | | - [facility] | | | | | epithelial | | [facility] | | | | | cell count | | Hospital | | | | | by | | | | | | | microscopy | | | | | | | (number/high | | | | | | | power | | | | | | | field) | | | | | | + + + + + + + + + | Result panel 80 | + + + + + + + + + | Crystal | 2025-03-18 | | NONE SEEN | (missing) | (missing) | | typing in | 15:20 | [facility] | | | | | urine | | - [facility] | | [facility] | | sediment by | | [facility] | | | | | light | | Hospital | | | | | microscopy | | | | | | + + + + + + + + + | Result panel 81 | + + + + + +--------+ + + | Automated | 2025-03-18 | | RARE | (missing) | (missing) | | urine | 15:20 | [facility] | | | | | sediment | | - [facility] | | | | | bacteria | | [facility] | | | | | count by | | Hospital | | | | | microscopy | | | | | | | (number/high | | | | | | | power | | | | | | | field) | | | | | | + + + +--------+ + + + + | Result panel 82 | + + + + + + + + + | Automated | 2025-03-18 | | GRANULAR 1+ | (missing) | (missing) | | casts count | 15:20 | [facility] | | | | | in urine | | - [facility] | | | | | sediment by | | [facility] | | | | | microscopy | | Hospital | | | | | low power | | | | | | | field | | | | | | | (number/area | | | | | | | ) | | | | | | + + + + + + + + + | Result panel 83 | + + + + + + + + + | Automated | 2025-03-18 | | HYALINE 1+ | (missing) | (missing) | | casts count | 15:20 | [facility] | | | | | in urine | | - [facility] | | | | | sediment by | | [facility] | | | | | microscopy | | Hospital | | | | | low power | | | | | | | field | | | | | | | (number/area | | | | | | | ) | | | | | | + + + + + + + + + | Result panel 84 | + + + + + +------+ + + | Reflexive | 2025-03-18 | | No | (missing) | (missing) | | urine | 15:20 | [facility] | | | | | bacterial | | - [facility] | | [facility] | culture | | [facility] | | | | | | [facility] | | | | + + + +------+ + + + + | Result panel 85 | + + + + + + + + + | Urinalysis | 2025-03-18 | | CLEAN CATCH | (missing) | (missing) | | specimen | 15:20 | [facility] | | | | | collection | [facility] | [facility] | | method | | [facility] | | | | + + + + + + + + + | Result panel 86 | + + + + + + + + + | Color Ur | 2025-03-18 | | YELLOW | (missing) | (missing) | | Auto | 15:20:07 | [facility] | | | | | | | - [facility] | | | | | | [facility] | [facility] | | | | + + + + + + + + + | Result panel 87 | + + + + + +---------+ + + | Character | 2025-03-18 | | CLEAR | (missing) | (missing) | | Ur | 15:20:07 | [facility] | | | | | | [facility] | | [facility] | [facility] | | | | + + + +---------+ + + + + | Result panel 88 | + + + + + + + + + | Glucose Ur | 2025-03-18 | | NEGATIVE | (missing) | (missing) | | Ql Strip | 15:20:07 | [facility] | | | | | | [facility] | | | | + + + + + + + + + | Result panel 89 | + + + + + + + + + | Bilirub Ur | 2025-03-18 | | POSITIVE | (missing) | (missing) | | Ql Strip | 15:20:07 | [facility] | | | | [facility] | | | | + + + + + + + + + | Result panel 90 | + + + + + +---------+ + + | Ketonerody Ur | 2025-03-18 | | TRACE | (missing) | (missing) | | Ql Strip | 15:20:07 | [facility] | | | | | | [facility] | | | | + + + +---------+ + + + + | Result panel 91 | + + + + + +---------+ + + | Sp Bartolo Silverman | 2025-03-18 | | 1.025 | (missing) | (missing) | | Strip | 15:20:07 | [facility] | | | | + + + +---------+ + + + + | Result panel 92 | + + + + + + + + + | Hgb Ur Ql | 2025-03-18 | | TRACE-I | (missing) | (missing) | | Strip | 15:20:07 | [facility] | | | [facility] | | | | + + + + + + + + + | Result panel 93 | + + + + + +-------+ + + | pH Ur Strip | 2025-03-18 | | 6.0 | (missing) | (missing) | | | 15:20:07 | [facility] | | | | | | | - | | | | | | | [facility] | [facility] | | | [facility] | | | | + + + +-------+ + + + + | Result panel 94 | + + + + + +------+ + + | Prot Ur | 2025-03-18 | | 30 | (missing) | (missing) | | Strip-mCnc | 15:20:07 | [facility] | | | | | | [facility] | | | | + + + +------+ + + + + | Result panel 95 | + + + + + + + + + | | 2025-03-18 | | NORMAL | (missing) | (missing) | | Urobilinogen | 15:20:07 | [facility] | | | | | Ur | [facility] | Strip-mCnc | | [facility] | | | | + + + + + + + + + | Result panel 96 | + + + + + + + + + | Nitrite Ur | 2025-03-18 | | NEGATIVE | (missing) | (missing) | | Ql Strip | 15:20:07 | [facility] | | | | | [facility] | | | | + + + + + + + + + | Result panel 97 | + + + + + + + + + | Leukocyte | 2025-03-18 | | NEGATIVE | (missing) | (missing) | | esterase Ur | 15:20:07 | [facility] | | | | | Ql Strip | [facility] | | | | + + + + + + + + + | Result panel 98 | + + + + + +-------+ + + | RBC #/area | 2025-03-18 | | 0-1 | (missing) | (missing) | | UrnS HPF | 15:20:07 | [facility] | | | [facility] | | | | + + + +-------+ + + + + | Result panel 99 | + + + + + +-------+ + + | WBC #/area | 2025-03-18 | | 0-1 | (missing) | (missing) | | [facility] | 15:20:07 | [facility] | | | | + + + +-------+ + + + + | Result panel 100 | + + + + + + + + + | Epi Cells | 2025-03-18 | | SQUAMOUS 1+ | (missing) | (missing) | | #/area UrnS | 15:20:07 | [facility] | | | | | HPF | | - | | | | | | | [facility] | | | | + + + + + + + + + | Result panel 101 | + + + + + + + + + | Crystals | 2025-03-18 | | NONE SEEN | (missing) | (missing) | | UrnS Micro | 15:20:07 | [facility] | | | | | [facility] | | | | + + + + + + + + + | Result panel 102 | + + + + + +--------+ + + | Bacteria | 2025-03-18 | | RARE | (missing) | (missing) | | #/area UrnS | 15:20:07 | [facility] | | | | | HPF | [facility] | | | | + + + +--------+ + + + + | Result panel 103 | + + + + + + + + + | Casts | 2025-03-18 | | GRANULAR 1+ | (missing) | (missing) | | #/area UrnS | 15:20:07 | [facility] | | | | | LPF | [facility] | | | | + + + + + + + + + | Result panel 104 | + + + + + + + + + | Casts | 2025-03-18 | | HYALINE 1+ | (missing) | (missing) | | #/tracy Chavez | 15:20:07 | [facility] | | | | | LPF | [facility] | | | | + + + + + + + + + | Result panel 105 | + + + + + +------+ + + | Bacteria Ur | 2025-03-18 | | No | (missing) | (missing) | | Cult | 15:20:07 | [facility] | | | | | [facility] | | | | + + + +------+ + + + + | Result panel 106 | + + + + + + + + + | Urn Spec | 2025-03-18 | | CLEAN CATCH | (missing) | (missing) | | Collect Meth | 15:20:07 | [facility] | | | | | Ur | [facility] | | | | + + + + + + + + + | Result panel 107 | + + + + + + + + + | | 2025-03-18 | | (missing) | (missing) | (missing) | | Electrocardi | 22:07 | [facility] | | ogram [facility] | | | | + + + + + + + Social History + + + + | date | description | facility | + + + + | (no date) | Former smoker | [facility] | [facility] | + + + + Vital Signs + + + +---------+ | date | measurement | value | units | + + + +---------+ | 2025-03-18 00:00 | BMI | 27.7 | kg/m2 | + + + +---------+ | 2025-03-18 00:00 | height_metric | 187.96 | cm | + + + +---------+ | 2025-03-18 00:00 | height_standard | 74 | in | + + + +---------+ | 2025-03-18 00:00 | weight_metric | 97.8 | kg | + + + +---------+ | 2025-03-18 00:00 | weight_standard | 215.612 | lb | + + + +---------+ | 2025-03-22 00:00 | BP_diastolic | 55 | mmHg | + + + +---------+ | 2025-03-22 00:00 | BP_systolic | 121 | mmHg | + + + +---------+ | 2025-03-22 00:00 | heart_rate | 85 | /min | + + + +---------+ | 2025-03-22 00:00 | o2_saturation | 98 | % | + + + +---------+ | 2025-03-22 00:00 | respiration_rate | 16 | /min | + + + +---------+ | 2025-03-22 00:00 | | 98.9 | F | | | temperature_standar | | | | | d | | | + + + +---------+"
--- OUTSIDE RECORDS SUMMARY | ~2025-06-14 | XMS | Continuity of Care Document ---
Demographics + + + | Address | [address] | | | [place] [address] | + + + | Preferred Language | Unknown | + + + | Marital Status | | + + + | Sikh Affiliation | Unknown | + + + | Race | White | + + + | Ethnic Group | Not or | + + + Author + + + | Author | [facility] | + + + | Organization | [facility] | + + + | Address | [address] | | | [place] [address] | + + + | Phone | | + + + Care Team Providers + + + + | Care Web Ui Software Engineer Name | Role | Phone | + [...] | [facility] | | | | [facility] | + + + + Medications + + + + | date | description | facility | + + + + | (no date) | OXYCODONE HCL | [facility] | | | | [facility] | + + + + | 2025-03-16 00:00 | OXYCODONE HCL | [facility] | | | | [facility] | + + + + | (no date) | oxycodone hydrochloride 5 | [facility] | | | MG Oral Tablet | [facility] | + + + + | 2025-03-16 00:00 | oxycodone hydrochloride 5 | [facility] | | | MG Oral Tablet | [facility] | + + + + | (no date) | OXYCODONE | [facility] | | | HCL/ACETAMINOPHEN | [facility] | + + + + | (no date) | acetaminophen 325 MG / | [facility] | | | oxycodone hydrochloride 5 | [facility] | | | MG Oral Tab | | + + + + | (no date) | CARBOXYMETHYLCELLULOSE | [facility] | | | SODIUM | [facility] | + + + + | (no date) | carboxymethylcellulose | [facility] | | | sodium 5 MG/ML Ophthalmic | [facility] | | | Solution | | + + + + | (no date) | CHLORTHALIDONE | [facility] | | | | [facility] | + + + + | (no date) | chlorthalidone 25 MG Oral | [facility] | | | Tablet | [facility] | + + + + | (no date) | LOVASTATIN | [facility] | | | | [facility] | + + + + | (no ) | lovastatin 20 MG Oral | [facility] | | | Tablet | [facility] | + + + + | (no date) | ACETAMINOPHEN | [facility] | | | | [facility] | + + + + | (no date) | acetaminophen 500 MG Oral | [facility] | | | Tablet | [facility] | + + + + | (no date) | LISINOPRIL | [facility] | | | | [facility] | + + + + | (no date) | lisinopril 40 MG Oral | [facility] | | | Tablet [Zestril] | [facility] | + + + + | (no date) | CLOPIDOGREL BISULFATE | [facility] | | | | [facility] | + + + + | (no date) | clopidogrel 75 MG Oral | [facility] | | | Tablet [Plavix] | [facility] | + + + + | (no date) | Cholecalciferol (Vitamin | [facility] | | | D3) | [facility] | + + + + | (no date) | cholecalciferol 0.125 MG | [facility] | | | Oral Capsule | [facility] | + + + + | (no date) | ASPIRIN | [facility] | | | | [facility] | + + + + | (no date) | aspirin 81 MG Delayed | [facility] | | | Release Oral Tablet | [facility] | + + + + | 2025-03-16 00:00 | CEFUROXIME AXETIL | [facility] | | | | [facility] | + + + + | 2025-03-16 00:00 | cefuroxime 250 MG Oral | [facility] | | | Tablet | [facility] | + + + + | (no date) | Clotrimazole | [facility] | | | | [facility] | + + + + | (no date) | clotrimazole 10 MG/ML | [facility] | | | Topical Cream | [facility] | + + + + | 2025-03-16 00:00 | GABAPENTIN | [facility] | | | | [facility] | + + + + | 2025-03-16 00:00 | gabapentin 300 MG Oral | [facility] | | | Capsule | [facility] | + + + + | (no date) | LISINOPRIL | [facility] | | | | [facility] | + + + + | (no date) | lisinopril 2.5 MG Oral | [facility] | | | Tablet | [facility] | + + + + | (no date) | MELOXICAM | [facility] | | | | [facility] | + + + + | (no date) | meloxicam 7.5 MG Oral | [facility] | | | Tablet | [facility] | + + + + | (no date) | SIMVASTATIN | [facility] | | | | [facility] | + + + + | (no ) | simvastatin 20 MG Oral | [facility] | | | Tablet | [facility] | + + + + | 2025-04-05 00:00 | SUCRALFATE | [facility] | | | | [facility] | + + + + | 2025-04-05 00:00 | sucralfate 100 MG/ML Oral | [facility] | | | Suspension | [facility] | + + + + | (no date) | PANTOPRAZOLE SODIUM | [facility] | | | | [facility] | + + + + | (no date) | pantoprazole 40 MG Delayed | [facility] | | | Release Oral Tablet | [facility] | + + + + | (no date) | TRAMADOL HCL | [facility] | | | | [facility] | + + + + | (no date) | tramadol hydrochloride 50 | [facility] | | | MG Oral Tablet | [facility] | + + + + | (no date) | Berberine 90 MG / | [facility] | | | Cholecalciferol 500 UNT / | [facility] | | | Hops extract 370 | | + + + + | (no date) | VIT D3 & K/BERBERINE | [facility] | | | HCL/HOPS | [facility] | + + + + | (no date) | | [facility] | | | SULFAMETHOXAZOLE/TRIMETHOPR | [facility] | | | IM DS | | + + + + | (no date) | sulfamethoxazole 800 MG / | [facility] | | | trimethoprim 160 MG Oral | [facility] | | | Tablet [B | | + + + + | (no date) | Diclofenac Sodium | [facility] | | | | [facility] | + + + + | (no date) | diclofenac sodium 0.01 | [facility] | | | MG/MG Topical Gel | [facility] | + + + + | (no date) | DICLOFENAC SODIUM | [facility] | | | | [facility] | + + + + | (no date) | diclofenac sodium 0.03 | [facility] | | | MG/MG Topical Gel | [facility] | + + + + | 2025-03-22 00:00 | HYDROMORPHONE HCL | [facility] | | | | [facility] | + + + + | 2025-03-22 00:00 | hydromorphone | [facility] | | | hydrochloride 4 MG Oral | [facility] | | | Tablet | | + + + + | (no date) | MICONAZOLE NITRATE | [facility] | | | | [facility] | + + + + | (no date) | miconazole nitrate 0.02 | [facility] | | | MG/MG Topical Powder | [facility] | + + + + Problems + + + + | date | description | facility | + + + + | 2025-03-18 00:00 | Left knee pain | [facility] | | | | [facility] | + + + + | 2025-03-18 00:00 | Left knee pain | [facility] | | | | [facility] | + + + + | 2025-04-05 00:00 | Foreign body in esophagus | [facility] | | | | [facility] | + + + + | 2025-04-05 00:00 | Foreign body in esophagus | [facility] | | | | [facility] | + + + + Procedures [...] 9.6 | (missing) | (missing) | | Bld[facility] | 13:35:07 | [facility] | | | [...] 22 | mg/dL | (missing) | | SerPl-m[facility]nc [...] 1.29 | mg/dL | (missing) | | SerPl-[facility] | 13:35:07 | [facility] | | | [...] 103 | (missing) | (missing) | | [facility] | 13:35:07 | [facility] | | | [...] 6.7 | (missing) | (missing) | | SerPl-mCnc [...] 2.9 | (missing) | (missing) | | Vern-[facility] | 13:35:07 [...] 3.8 | (missing) | (missing) | | Ser-Kaya | 13:35:07 | [facility] | | | [...] 0.5 | mg/dL | (missing) | | SerPl-nc | 13:35:07 | [facility] | | | [...] 43 | (missing) | (missing) | | SerPl-cCnc [...] 68 | (missing) | (missing) | | SerPl-cCnc [...] + + + + + + | Patsy Silverman | 2025-03-18 | | POSITIVE | (missing) [...] + + +---------+ + + | Sp Gr Ur | 2025-03-18 | | 1.025 | (missing) [...] | (missing) | | | 15:20:07 | [facility] | | | | | | | [...] | | | Ur | | - | | | | | [facility] | | [facility] | | | | [...] (missing) | | Electrocardi | 22:07 | [facility] | | | | | [facility]gram [facility] | | [facility] | | | | + + + + + + + Social History + + + + | date | description | facility | + + + + | (no date) | Former smoker | [facility] | | | | [facility] | + + + + Vital Signs + + + +---------+ | date | measurement | value | units | + + + +---------+ | 2025-03-16 00:00 | BP_diastolic | 48 | mmHg | + + + +---------+ | 2025-03-16 00:00 | BP_systolic | 111 | mmHg | + + + +---------+ | 2025-03-16 00:00 | heart_rate | 87 | /min | + + + +---------+ | 2025-03-16 00:00 | o2_saturation | 100 | % | + + + +---------+ | 2025-03-16 00:00 | respiration_rate | 16 | /min | + + + +---------+ | 2025-03-16 00:00 | | 97.4 | F | | | temperature_standar | | | | | d | | | + + + +---------+ | 2025-03-18 [...]
[~2025-06-14 16:12] MED LIST changes: +SUCRALFATE1 GM/10 ML PO
[2025-06-14] MEDS ORDERED: IBLOOD GLUCOSE TEST STRIP 1 EA TEST XX ONE (16:30)
[2025-06-14 17:03] LABS: BASOPHILS 0.7 % (0.2-1.2); EOSINOPHILS 3.5 % (0.8-7.0); LYMPHOCYTES 17.5 % (21.8-53.1); MCH 27.7 PG (25.7-32.2); MCHC 31.9 g/dL (32.3-36.5); MCV 87.0 fL (79.0-92.2); MONOCYTES 8.8 % (5.3-12.2); NEUTROPHILS 69.1 % (34.0-67.9); RBC 3.68 M/uL (4.63-6.08)
[2025-06-14] MEDS ORDERED: SODIUM CHLORIDE 0.9% 500 ML IV PRN (17:15)
[2025-06-14 17:21] LABS: ALT (SGPT) 31.0 U/L (14-59); AST (SGOT) 49.0 U/L (15-37); GLOMERULAR FILTRATION RATE,EST 52.0 mL/min (>60); PROTEIN, TOTAL 7.5 g/dL (6.4-8.2); UREA NITROGEN 42.0 mg/dL (7-18)
[2025-06-14 17:36] LABS: INR 1.27 (0.80-1.30); PROTIME 15.1 Sec (11.2-14.2)
[2025-06-14 17:58] LABS: LACTIC ACID, BLOOD 2.4 mmol/L (0.4-2.0)
[2025-06-14] MEDS ORDERED: LIDOCAINE 2% VISCOUS 6 ML SYR TOP ONE (18:45)
[2025-06-14 19:01] LABS: LACTIC ACID, BLOOD 1.6 mmol/L (0.4-2.0)
[2025-06-14 19:02] LABS: BLOOD/HGB, URINE NEGATIVE (Negative); KETONE, URINE NEGATIVE (Negative); LEUK ESTERASE, URINE NEGATIVE (negative); NITRITE, URINE NEGATIVE (negative)
[2025-06-14 19:24] LABS: BACTERIA, URINE NONE SEEN /hpf (negative); CASTS, URINE GRANULAR 1+ \\lpf; CRYSTALS, URINE NONE SEEN (0-1+); EPITHELIAL CELLS, URINE NONE SEEN /lpf (0-1+); REFLEX CULTURE, URINE No (No)
[2025-06-15 10:36] LABS: BASOPHILS 0.7 % (0.2-1.2); EOSINOPHILS 2.7 % (0.8-7.0); LYMPHOCYTES 18.4 % (21.8-53.1); MCH 28.1 PG (25.7-32.2); MCHC 32.3 g/dL (32.3-36.5); MCV 86.8 fL (79.0-92.2); MONOCYTES 6.5 % (5.3-12.2); NEUTROPHILS 71.4 % (34.0-67.9); RBC 3.49 M/uL (4.63-6.08)
[2025-06-15] MEDS ORDERED: FUROSEMIDE 40 MG/4 ML VIAL IV SCH (11:41)
[2025-06-15] MEDS ORDERED: CLOPIDOGREL BISULFATE 75 MG TAB PO SCH (11:45)
[2025-06-15] MEDS ORDERED: OXYCODONE HCL 5 MG TAB PO PRN (11:45)
[2025-06-15] MEDS ORDERED: ACETAMINOPHEN 325 MG TAB PO PRN (11:45)
[2025-06-15] MEDS ORDERED: PANTOPRAZOLE SODIUM 40 MG TABEC PO SCH (11:46)
[2025-06-15] MEDS ORDERED: GABAPENTIN 300 MG CAP PO SCH (11:47)
[2025-06-15] MEDS ORDERED: PHARMACY RENAL DOSE ADJUSTMENT 1 DOSE MISC PO SCH (12:00)
--- NOTE | 2025-06-15 13:00 | NUR ---
PATIENT ARRIVED VIA STRETCHER FROM ER. REPORT RECEIVED FROM KARTHIK VERAS. PATIENT OREIENTED TO ROOM. VISITOR AT BEDSIDE. CALL LIGHT GIVEN.
[2025-06-15 13:07] VITALS: BP 115/57
[2025-06-15 14:34] VITALS: BP 115/57
--- NOTE | 2025-06-15 15:00 | NUR ---
ECHO IN ROOM WITH PATIENT.
[2025-06-15] MEDS ORDERED: LIDOCAINE HCL 4% 1 EACH PATCH TD SCH (15:16)
[2025-06-15] MEDS ORDERED: SUCRALFATE 1 GM TAB PO SCH (16:00)
[2025-06-15 18:12] VITALS: BP 92/40
--- NOTE | 2025-06-15 18:32 | NUR ---
PER PATIENTS VITAL SIGNS DR MACIEL NOTIFED OF LOW B/P. THIS RN IN ROOM TO ASSESS. VERBAL ORDER TO GIVE BOLUS 500 LR.
[2025-06-15] MEDS ORDERED: LACTATED RINGER'S 500 ML IV ONE (18:45)
[2025-06-15 18:50] VITALS: BP 92/40
--- NOTE | 2025-06-15 18:56 | NUR ---
FLUID BOLUS STARTED PER ORDER. PATIENT RESTING WITH EYES CLOSED, RESPIRATIONS EVEN AND UNLABORED. NO NEDS IDENTIFIED AT THIS TIME. CALL LIGHT IN REACH.
--- NOTE | 2025-06-15 19:20 | NUR ---
RECEIVED REPORT FROM THADDEUS RN. PT LAYING IN BED WITH EYES CLOSED, UNLABORED BREATHING. SALINE LOCKED, LR BOLUS COMPLETE. WHITEBOARD UPDATED, CALL LIGHT WITHIN REACH.
[2025-06-15 20:45] VITALS: BP 117/58
--- NOTE | 2025-06-15 20:50 | NUR ---
UNABLE TO ASSESS PTS MOBILITY, NEW HEAT PACK PLACED ON PTS R SHOULDER. PT HAD A BM, CAMILA CARE COMPLETE. CADE EMPTIED AND CADE CARE COMPLETED. VSS. MEDS GIVEN PER ORDER, FRESH ICE WATER GIVEN, NO OTHER NEEDS AT THIS TIME, CALL LIGHT WITHIN REACH, CPAP ON.
[2025-06-15] MEDS ORDERED: LIDOCAINE PATCH REMOVAL 1 EA TD SCH (21:00)
[2025-06-15] MEDS ORDERED: MELATONIN 3 MG TAB PO PRN (21:00)
[2025-06-15] MEDS ORDERED: HEParin SOD (PORCINE) 5,000 UNIT/ML SDV SUB-Q SCH (21:00)
[2025-06-15 21:22] VITALS: BP 117/58
--- NOTE | 2025-06-15 21:40 | NUR ---
ASSISTED PT TO REPOSITION LEGS. PT REMAINS ON LEFT SIDE. CALL LIGHT WITHIN REACH.
[2025-06-16] VITALS (11 sets, daily range): BP systolic 112–132; BP diastolic 60–94
--- NOTE | 2025-06-16 00:07 | NUR ---
ASSISTED IN REPOSITIONING PT FROM PILLOWS ON R SIDE TO PT LAYING ON BACK. LEGS ELEVATED WITH PILLOWS, NO OTHER NEEDS AT THIS TIME, CPAP ON, CALL LIGHT WITHIN REACH.
--- NOTE | 2025-06-16 01:27 | NUR ---
PT LAYING IN BED W/EYES CLOSED AND UNLABORED BREATHING. CALL LIGHT WITHIN REACH, CPAP ON.
--- NOTE | 2025-06-16 03:10 | NUR ---
PT LAYING IN BED WITH EYES CLOSED, UNLABORED BREATHING, CPAP ON. CALL LIGHT WITHIN REACH.
--- NOTE | 2025-06-16 05:06 | NUR ---
PT LAYING IN BED WITH EYES CLOSED, UNLABORED BREATHING, CPAP ON, CALL LIGHT WITHIN REACH.
[2025-06-16 05:35] LABS: BASOPHILS 0.8 % (0.2-1.2); EOSINOPHILS 6.9 % (0.8-7.0); LYMPHOCYTES 25.5 % (21.8-53.1); MCH 27.8 PG (25.7-32.2); MCHC 32.6 g/dL (32.3-36.5); MCV 85.2 fL (79.0-92.2); MONOCYTES 8.1 % (5.3-12.2); NEUTROPHILS 58.5 % (34.0-67.9); RBC 3.24 M/uL (4.63-6.08)
[2025-06-16 05:55] LABS: ALT (SGPT) 23.0 U/L (14-59); AST (SGOT) 35.0 U/L (15-37); GLOMERULAR FILTRATION RATE,EST 82.0 mL/min (>60); PROTEIN, TOTAL 6.3 g/dL (6.4-8.2); UREA NITROGEN 24.0 mg/dL (7-18)
--- NOTE | 2025-06-16 06:26 | NUR ---
PT LAYING IN BED WATCHING TV, REPORTS NO NEEDS AT THIS TIME. ORDERED CARALFATE GIVEN, CALL LIGHT IN REACH.
--- NOTE | 2025-06-16 07:37 | NUR ---
UR CLINICAL REVIEW: 2 MN FOR [facility]-PER CAMPAIGN MANAGER MEETS INPT FOR CHF WITH NEED FOR SERIAL LABS, IV DIURETICS AND PT/OT MEDICARE INPT 06/15/25 @ 1148 ORDER MATCHES REG NO AUTH REQUIRED PER MEDICARE GUIDELINES DISCHARGE TO SNF WHEN MEDICALLY CLEARED
[2025-06-16] MEDS ORDERED: ASPIRIN 81 MG CHEW PO SCH (08:00)
[2025-06-16] MEDS ORDERED: POTASSIUM CHLORIDE 40 MEQ,LIDOCAINE HCL 1% 40 MG in DEXTROSE 5% 250 ML IV ONE (09:00)
[2025-06-16] MEDS ORDERED: OXYCODONE HCL5 M3 PO (09:06)
--- NOTE | 2025-06-16 09:17 | NUR ---
ALERT AND ORIENTED IN BED. DISCUSSED SNF FOR 20 DAYS AT HOSPITAL DC. STATES HE IS AGREEABLE TO SNF. PREFERS [facility] WHEN PATIENT CHOICES DISCUSSED.
--- NOTE | 2025-06-16 09:20 | NUR ---
Rivero catheter removed per order. Catheter tip intact, pt tolerated well. Admin oxycodone 10mg po at this time for 8/10 generalized pain.
--- NOTE | 2025-06-16 09:50 | NUR ---
REFERRAL FAXED TO [facility] FOR SNF PLACEMENT
--- NOTE | 2025-06-16 11:23 | NUR ---
Patient sitting up in chair watching tv, no acute distress. Patient reports he feels much better in chair per his report, legs elevated. No current needs at this time, personal supplies and call light within reach.
[2025-06-16] MEDS ORDERED: FUROSEMIDE 20 MG TAB PO SCH (12:05)
--- NOTE | 2025-06-16 13:12 | NUR ---
FAXED UPDATED PT/OT NOTES TO [facility]
--- NOTE | 2025-06-16 14:08 | NUR ---
NOTIFIED BY NAIDA AT [facility], PATIENT IS ACCEPTED FOR SNF PLACEMENT. CALLED [employer] FOR MEDICAID ELIGIBILITY FOR POTENTIAL MEDICAID NEED.
--- NOTE | 2025-06-16 14:10 | NUR ---
PATIENT CALLED AND WAS ON BED FELIPE IN THE CHAIR. 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 PATIENT CLEANED UP, NEW DEPENDS ON, NEW GOWN ON. CALL LIGHT WITHIN REACH. FAMILY AT BEDSIDE.
--- NOTE | 2025-06-16 14:20 | NUR ---
PATIENT, NURSING STAFF AND DR. MACIEL UPDATED ON PLAN TO DC TO [facility] FOR SNF AT [place].
[2025-06-16] MEDS ORDERED: CORTIZONE-1028 G1 TOP (15:23)
[2025-06-16] MEDS ORDERED: EUCERIN ADVANC454 GM TOP (15:24)
--- NOTE | 2025-06-16 15:25 | NUR ---
MED REC COMPLETE
--- NOTE | 2025-06-16 16:27 | NUR ---
PATIENT IS IN BED AT THIS TIME, LORENA RAMIREZ AND I ASSISTED THE PATIENT IN A FULL BED BATH, NEW LINENS, GOWN, HAIR WASHED AND BRUSHED, NEW BREIF, CALL LIGHT WITH IN REACH AND NOTHING ELSE NEEDED AT THIS TIME.
--- NOTE | 2025-06-16 16:42 | NUR ---
PATIENT WATCHING TV. MEDICATIONS GIVEN. PATIENT READY FOR DINNER WHEN IT COMES AROUND. BED IN LOW POSTION. PATIENT HAS PHONE AT BEDSIDE AND WATER.
--- NOTE | 2025-06-16 19:26 | NUR ---
RECEIVED REPORT FROM KARTHIK LOPEZ. PT SOUND ASLEEP, HOB AT 45 DEGREES. CALL LIGHT WITHIN REACH.
[2025-06-16] MEDS ORDERED: GABAPENTIN 300 MG CAP PO SCH (21:00)
--- NOTE | 2025-06-16 21:30 | NUR ---
PT RESTING IN BED, HOB AT 45 DEGREES. VSS. USES CALL LIGHT APPROPRIATELY. REPORTS ONGOING BACK AND NECK PAIN 03/14, PT MEDICATED W/ PRN OXYCODONE PER EMAR. PT GIVEN HEAT PACK FOR NECK PER REQUEST. ORIENTED X 4, FLAT AFFECT. PT IS IRRITABLE THIS EVENING, REFUSING TO WEAR GOWN, REFUSING SCD'S, ETC. LSC DIM T/O. RT APPLIED C-PAP. HRR. 3+ EDEMA TO BLE. BTA, INC OF BM EARLIER TODAY. PT USING URINAL IND BUT SPILLING URINE IN BED. PT REFUSED DISPOSIBLE BRIEF. LAC SL WNL. PT HAS BLANCHEABLE REDNESS TO CAMILA RECTAL AREA-BARRIER CREAM APPLIED. PT NOTED TO HAVE 1.5x2 CM PRESSURE WOUND TO RIGHT HEEL. FOREPART ROUNDERKARTHIK DOSS TOOK PHOTOS AND PLACED IN CHART. HEEL OFFLOADING FOAM DEVICE PLACED AND PT REPOSITIONED TO LEFT SIDE W/ MAX ASSIST-PT IS VERY STIFF AND IMMOBILE. CALL LIGHT WITHIN REACH.
--- NOTE | 2025-06-16 23:22 | NUR ---
PT SLEEPING SOUNDLY ON LEFT SIDE, C-PAP IN PLACE.
[2025-06-17] VITALS (9 sets, daily range): BP systolic 104–141; BP diastolic 56–69
--- NOTE | 2025-06-17 00:24 | NUR ---
PT REPOSITIONED TO RIGHT SIDE, HEELS FLOATED AND PROTECTED. CALL LIGHT WITHIN REACH.
--- NOTE | 2025-06-17 02:51 | NUR ---
ASLEEP, APPEARS COMFORTABLE.
--- NOTE | 2025-06-17 02:59 | NUR ---
PT CALLED FOR ASSIST TO REPOSITION, PT REPOSITIONED TO LEFT SIDE W/ MAX ASSIST. RIGHT HEEL FLOATED, PRESSURE WOUND UNCHANGED.
[2025-06-17 05:25] LABS: BASOPHILS 0.9 % (0.2-1.2); EOSINOPHILS 11.1 % (0.8-7.0); LYMPHOCYTES 28.3 % (21.8-53.1); MCH 28.0 PG (25.7-32.2); MCHC 32.7 g/dL (32.3-36.5); MCV 85.4 fL (79.0-92.2); MONOCYTES 9.0 % (5.3-12.2); NEUTROPHILS 50.4 % (34.0-67.9); RBC 3.29 M/uL (4.63-6.08)
[2025-06-17 05:46] LABS: ALT (SGPT) 25.0 U/L (14-59); AST (SGOT) 27.0 U/L (15-37); GLOMERULAR FILTRATION RATE,EST 77.0 mL/min (>60); PROTEIN, TOTAL 6.6 g/dL (6.4-8.2); UREA NITROGEN 21.0 mg/dL (7-18)
--- NOTE | 2025-06-17 05:55 | NUR ---
TOP PRECIPITATOR OPERATOR OBTAINED VITALS AND I&O. PT STATES NO NEEDS AT THIS TIME. CALL LIGHT WITHIN REACH.
--- NOTE | 2025-06-17 06:05 | NUR ---
PT REPOSITIONED TO RIGHT SIDE W/ MAX ASSIST. VSS. CALL LIGHT WITHIN REACH.
--- NOTE | 2025-06-17 07:25 | NUR ---
REPORT RECIEVED FROM KARTHIK MCKEE. PATIENT RESTING IN BED AND IS WITHOUT ANY NEEDS AT THIS TIME. CALL LIGHT AND PERSONAL BELONGINGS ARE WITHIN REACH.
--- NOTE | 2025-06-17 08:58 | NUR ---
OUTBOARD SYSTEM OPERATOR AT BEDSIDE
[2025-06-17] MEDS ORDERED: FUROSEMIDE 20 MG/2 ML VIAL IV SCH (09:00)
[2025-06-17] MEDS ORDERED: EMPAGLIFLOZIN 10 MG TAB PO SCH (09:00)
--- NOTE | 2025-06-17 09:29 | NUR ---
PATIENT MEDICATED PER EMAR. PATIENT ASSESSMENT COMPLETED. DR MACIEL AT BEDSIDE.
--- NOTE | 2025-06-17 09:31 | NUR ---
PATIENT AGREEABLE TO [facility]. STATES HE HAS SOMEONE BRINGING CLOTHES TO HIM. POTENTIALLY D/C TOMORROW IF MEDICALLY CLEARED.
--- NOTE | 2025-06-17 11:05 | NUR ---
DR MACIEL NOTIFIED ABOUT PATIENT'S FOOT AND WHAT APPEARS TO BE A PRESSURE SORE. MD IN ROOM WITH THIS RN TO ASSESS PATIENT'S FOOT AND STATES HE WILL ADD ORDER FOR WOUND CONSULT. MD WITH NO FURTHER ORDERS AT THIS TIME.
--- NOTE | 2025-06-17 11:45 | NUR ---
UR DC REVIEW: MONITOR LABS, ECHO SHOWS NEW CHG WITH NEED FOR MEDICATIONS MANAGEMENT. CARDIAC NURSE CONSULT ORDERED, BLOOD CULTURES ARE PENDING. DC TO [facility] ADD: 06/18/2025
--- NOTE | 2025-06-17 11:45 | NUR ---
PATIENT MEDICATED PER EMAR. PATIENT RESTING IN BED. HEELS ELEVATED. FRESH ICE WATER PROVIDED. PATIENT IS WITHOUT FURTHER NEEDS AT THIS TIME. CALL LIGHT AND PERSONAL BELONGINGS ARE WITHIN REACH.
--- NOTE | 2025-06-17 12:09 | NUR ---
ASSISTED BY LORENA NOBLE WITH A FULL LINEN AND BRIEF CHANGE.
--- NOTE | 2025-06-17 12:52 | NUR ---
RECIEVED REPORT FROM KARTHIK EDMONDSON. ASSUMING CARE OF PT.
--- NOTE | 2025-06-17 13:45 | NUR ---
PT STATES HE IS DONE USING BEDPAN. BEDPAN REMOVED, PT CLEANED, BARRIER CREAM APPLIED D/T BLACHABLE REDNESS ON COCCYX. PT STATES NO FURTHER NEEDS AT THIS TIME. CALL LIGHT WITHIN REACH.
--- NOTE | 2025-06-17 15:52 | NUR ---
In pts room to do CHF education. Pt reating in bed. Education completed and pt verbalized understanding. All questions answered. If pt has any other questions, I will return to room to answer them. Pt does not have a bathroom scale. One was provided for him.
--- NOTE | 2025-06-17 17:11 | NUR ---
PT UP TO CHAIR, STATES NO CURRENT NEEDS. CALL LIGHT WITHIN REACH.
--- NOTE | 2025-06-17 19:29 | NUR ---
RECEIVED REPORT FROM KARTHIK MOBLEY. PT SOUND ASLEEP, HOB ELEVATED. APPEARS COMFORTABLE. CALL LIGHT WITHIN REACH.
--- NOTE | 2025-06-17 19:48 | NUR ---
PT REPORTS 8/10 PAIN TO BACK, NECK AND RLE. PT MEDICATED W/ 10MG OXYCODONE PER EMAR. BUFFER NICKEL GAVE PT HEAT PACK FOR NECK.
--- NOTE | 2025-06-17 20:00 | NUR ---
PT RESTING IN BED, REPORTS PAIN HAS DECREASED TO 7/10. VSS. USES CALL LIGHT APPROPRIATELY. LSC, C-PAP READY AT BEDSIDE. HRR. 2+ EDEMA TO BLE. BTA, LBM TODAY. USES URINAL IND IN BED, UO WNL. LAC SL WNL. RIGHT HEEL PRESSURE WOUND PURPLE, UNCHANGED. RIGHT HEEL PROTECTOR IN PLACE. COCCYX AND CAMILA RECTAL AREA REDDENED, BLANCHEABLE. BARRIER VREAM APPLIED. PT REPOSITIONED TO LEFT SIDE W/ MAX ASSIST, PT IS VERY STIFF AND SORE W/ MOVEMENTS. PT AGREEABLE TO SCD'S-APPLIED PER ORDER. CALL LIGHT WITHIN REACH.
--- NOTE | 2025-06-17 22:32 | NUR ---
PT SLEEPING SOUNDLY OF LEFT SIDE-APPEARS COMFORTABLE. CALL LIGHT WITHIN REACH.
--- NOTE | 2025-06-18 00:18 | NUR ---
PT SOUND ASLEEP ON LEFT SIDE, APPEARS COMFORTABLE.
--- NOTE | 2025-06-18 00:35 | NUR ---
PT TURNED TO RIGHT SIDE LYING POSITION, HEELS FLOATED. URINAL EMPTIED. CALL LIGHT IN REACH, NO NEEDS AT THIS TIME.
--- NOTE | 2025-06-18 00:35 | NUR ---
THIS FIBER PICKER AND FIBER PICKERLon LEBLANC TURNED PT ONTO RIGHT SIDE WITH HEELS ELEVATED. PT STATES NO NEEDS AT THIS TIME AND REFUSES CPAP. CPAP MASK WITHIN REACH AND CALL LIGHT WITHIN REACH. BED ALARM ON.
--- NOTE | 2025-06-18 01:53 | NUR ---
PT SLEEPING SOUNDLY, LIGHTLY SNORING. C-PAP OFF. CALL LIGHT WITHIN REACH.
--- NOTE | 2025-06-18 04:35 | NUR ---
PT REPOSITIONED TO LEFT SIDE W/ MOD-MAX ASSIST. PT INC LARGE AMT URINE. LINENS AND GOWN CHANGED. CAMILA CARE PERFORMED. HEELS FLOATED. PT CONTINUES TO PERSEVERATE ON HOSPITAL GOWN BEING "QUEER CLOTHES". PT ASSURED THAT EVERY PATIENT IN THE HOSPITAL WEARS A GOWN, PT REMAINS IRRITABLE ABOUT GOWN SITUATION. CALL LIGHT WITHIN REACH.
[2025-06-18 05:13] VITALS: BP 114/43
[2025-06-18 05:26] VITALS: BP 114/43
[2025-06-18 05:36] LABS: BASOPHILS 0.8 % (0.2-1.2); EOSINOPHILS 13.7 % (0.8-7.0); LYMPHOCYTES 29.3 % (21.8-53.1); MCH 27.0 PG (25.7-32.2); MCHC 31.4 g/dL (32.3-36.5); MCV 85.9 fL (79.0-92.2); MONOCYTES 9.3 % (5.3-12.2); NEUTROPHILS 46.7 % (34.0-67.9); RBC 3.41 M/uL (4.63-6.08)
[2025-06-18 05:59] LABS: ALT (SGPT) 21.0 U/L (14-59); AST (SGOT) 19.0 U/L (15-37); GLOMERULAR FILTRATION RATE,EST 78.0 mL/min (>60); PROTEIN, TOTAL 6.4 g/dL (6.4-8.2); UREA NITROGEN 17.0 mg/dL (7-18)
--- NOTE | 2025-06-18 07:25 | NUR ---
RECEIVED REPORT FROM KARTHIK MCKEE. PT RESTING IN BED WITH EYES CLOSED, BREATHING EVEN AND UNLABORED. CALL LIGHT WITHIN REACH.
--- NOTE | 2025-06-18 09:38 | NUR ---
INTO SEE PATIENT. PATIENT READY FOR D/C. [facility] HAS ACCEPTED BUT TRYING TO FIND AN OPEN BED TODAY. WAITING. PENDING D/C.
[2025-06-18 09:40] VITALS: BP 99/52
[2025-06-18 10:25] VITALS: BP 99/52
[2025-06-18 10:47] VITALS: BP 93/54
--- NOTE | 2025-06-18 10:50 | NUR ---
PATIENT IS IN BED AT THIS TIME, TRAFFIC CHECKER CHARTED VITALS AND I&O'S, DID A CARE, WASHED FACE, BRUSHED TEETH, CALL LIGHT WITH IN REACH AND NOTHING ELSE NEEDED AT THIS TIME.
--- NOTE | 2025-06-18 13:24 | NUR ---
PT SITTING UP IN BED TALKING ON PHONE, STATES NO CURRENT NEEDS, CALL LIGHTH WITHIN REACH.
[2025-06-18 14:42] VITALS: BP 95/49
--- NOTE | 2025-06-18 14:45 | NUR ---
PATIENT IS IN BED AT THIS TIME, PICKLING OPERATOR CHARTED VITALS AND I&O'S, CALL LIGHT WITH IN REACH, GOT FRESH WATER, NOTHING ELSE NEEDED AT THIS TIME.
--- NOTE | 2025-06-18 15:09 | NUR ---
ORDERS FAXED TO [facility]. VAN TO PICK PATIENT UP AT 1530. NO FUTHER CM NEEDS
--- NOTE | 2025-06-18 15:30 | NUR ---
PT DRESSED BY NURSING STAFF, JOAO SHEET PLACED. PT BELONGINGS ON CART AWAITING WHEELCHAIR VAN. PT STATES NO FURTHER NEEDS AT THIS TIME, CALL LIGHT WITHIN REACH.
== END 2025-06-18 16:05 | DRG 871 ==
LOC: ED 16:12 → MS 06-15 11:52
PROVIDERS: Emergency Medicine; ADMIT Student in an Organized Health Care Education/Training Program; ATTEND Student in an Organized Health Care Education/Training Program
DX: A41.9 Sepsis, unspecified organism (principal); I50.21 Acute systolic (congestive) heart failure; E87.20 Acidosis, unspecified; F10.90 Alcohol use, unspecified, uncomplicated; M17.12 Unilateral primary osteoarthritis, left knee; I25.10 Atherosclerotic heart disease of native coronary artery without angina pectoris; Z96.652 Presence of left artificial knee joint; R62.7 Adult failure to thrive; M54.50 Low back pain, unspecified; I11.0 Hypertensive heart disease with heart failure; G89.29 Other chronic pain; E78.6 Lipoprotein deficiency; Z86.73 Personal history of transient ischemic attack (TIA), and cerebral infarction without residual deficits; Z87.891 Personal history of nicotine dependence; Z68.27 Body mass index [BMI] 27.0-27.9, adult; Z90.49 Acquired absence of other specified parts of digestive tract; Z98.890 Other specified postprocedural states; Z95.5 Presence of coronary angioplasty implant and graft; Z79.891 Long term (current) use of opiate analgesic; Z79.899 Other long term (current) drug therapy; Z79.82 Long term (current) use of aspirin
CPT/HCPCS: 36415; 70450; 71045; 72080; 74177; 80053; 81001; 82550; 83605; 83735; 83880; 84484; 85025; 85610; 85730; 87040; 93005; 93010; 93306; 94760; 94799; 97162; 97166; 97530; 97535; A9270; J0696; J1644; J1938; J3480; J3490; J7060; J7121; Q9967